=== PATIENT | female | born 1955 | race Caucasian/White ===

== ENCOUNTER → 2019-11-22 09:32 | Outpatient (CLI) | payer MEDICARE, SELFPAY ==
[2019-11-22 11:31] LABS: Add Manual Diff / Slide Review NO; Basophils Absolute Auto 0 /uL (0-100); Basophils Percent Auto 0.4 % (0-2); Eosinophils Absolute Auto 100 /uL (0-450); Eosinophils Percent Auto 1.4 % (2-4); Hematocrit 43.4 % (36-46); Hemoglobin 14.3 g/dL (12.0-16.0); Lymphocytes Absolute Auto 1600 /uL (1100-4500); Lymphocytes Percent Auto 25.3 % (25-40); Mean Corpuscular HGB Conc 32.9 % (30-36); Mean Corpuscular Hemoglobin 30.1 PG (26-34); Mean Corpuscular Volume 91.4 fL (80-100); Monocytes Absolute Auto 500 /uL (0-900); Monocytes Percent Auto 8.4 % (3-14); Neutrophils Absolute Auto 4100 /uL (1500-7000); Neutrophils Percent Auto 64.5 % (50-75); Platelet Count 210 X10^3/uL (150-400); Red Blood Cell Count 4.75 X10^6/uL (4.0-5.2); White Blood Cell Count 6.3 X10^3/uL (4.5-11.0)
[2019-11-22 11:45] LABS: BUN Creatinine Ratio 16.3 (6-22); Blood Urea Nitrogen 13 mg/dL (7-17); Calcium 9.4 mg/dL (8.4-10.2); Carbon Dioxide 28 mmol/L (22-32); Chloride 103 mmol/L (98-107); Cholesterol 206 mg/dL (140-199); Estimated Glomerular Filt Rate > 60.0 mL/min (>60); Glucose 80 mg/dL (80-110); HDL Cholesterol 98 mg/dL (40-60); HEMOLYSIS < 15 (0-50); LDL Cholesterol Calculated 92 mg/dL (<100); Potassium 4.3 mmol/L (3.4-5.1); Sodium 137 mmol/L (137-145); Triglycerides 79 mg/dL (35-150)
[2019-11-22 12:21] LABS: TSH w/ Reflex to FT4 1.11 uIU/mL (0.47-4.68)
[2019-11-23 10:48] LABS: Fecal Immunochemical Test Negative (Negative)
== END ==
PROVIDERS: PCP Family Medicine; Referring Provider Family Medicine; Visit Provider Family Medicine
DX: Z13.220 Encounter for screening for lipoid disorders (principal); Z13.29 Encounter for screening for other suspected endocrine disorder; Z12.11 Encounter for screening for malignant neoplasm of colon
CPT/HCPCS: 36415; 80048; 80061; 82274; 84443; 85025

== ENCOUNTER → 2020-11-27 08:29 | Outpatient (CLI) | payer MEDICARE, SELFPAY ==
[2020-11-27 09:59] LABS: Add Manual Diff / Slide Review NO; Basophils Absolute Auto 0 /uL (0-100); Basophils Percent Auto 0.5 % (0-2); Eosinophils Absolute Auto 100 /uL (0-450); Eosinophils Percent Auto 2.3 % (2-4); Hematocrit 41.7 % (36-46); Hemoglobin 13.9 g/dL (12.0-16.0); Lymphocytes Absolute Auto 1500 /uL (1100-4500); Lymphocytes Percent Auto 25.3 % (25-40); Mean Corpuscular HGB Conc 33.3 % (30-36); Mean Corpuscular Hemoglobin 30.5 PG (26-34); Mean Corpuscular Volume 91.5 fL (80-100); Monocytes Absolute Auto 500 /uL (0-900); Monocytes Percent Auto 7.5 % (3-14); Neutrophils Absolute Auto 3900 /uL (1500-7000); Neutrophils Percent Auto 64.4 % (50-75); Platelet Count 184 X10^3/uL (150-400); Red Blood Cell Count 4.55 X10^6/uL (4.0-5.2); Red Cell Distribution Width 13.1 % (11.6-14.8); White Blood Cell Count 6.1 X10^3/uL (4.5-11.0)
[2020-11-27 11:19] LABS: BUN Creatinine Ratio 31.3 (6-22); Blood Urea Nitrogen 21 mg/dL (7-17); Calcium 8.8 mg/dL (8.4-10.2); Carbon Dioxide 27 mmol/L (22-32); Chloride 106 mmol/L (98-107); Cholesterol 223 mg/dL (140-199); Estimated Glomerular Filt Rate > 60.0 mL/min (>60); Glucose 84 mg/dL (80-110); HDL Cholesterol 79 mg/dL (40-60); HEMOLYSIS < 15 (0-50); LDL Cholesterol Calculated 126 mg/dL (<100); Potassium 4.3 mmol/L (3.4-5.1); Sodium 138 mmol/L (137-145); Triglycerides 89 mg/dL (35-150)
[2020-11-27 11:46] LABS: TSH w/ Reflex to FT4 0.85 uIU/mL (0.47-4.68)
== END ==
PROVIDERS: PCP Family Medicine; Referring Provider Family Medicine; Visit Provider Family Medicine
DX: E78.5 Hyperlipidemia, unspecified (principal); Z13.29 Encounter for screening for other suspected endocrine disorder
CPT/HCPCS: 36415; 80048; 80061; 84443; 85025

== ENCOUNTER → 2020-12-11 08:54 | Outpatient (CLI) | payer MEDICARE, SELFPAY ==
[2020-12-11 12:38] LABS: COVID19 -Nasal RAPID Negative (Negative)
== END ==
PROVIDERS: PCP Family Medicine; Visit Provider Physician Assistant
DX: Z20.822 Contact with and (suspected) exposure to COVID-19 (principal)
CPT/HCPCS: 87635; C9803

== ENCOUNTER → 2020-12-12 08:00 | Outpatient (CLI) | payer MEDICARE, SELFPAY ==
--- NOTE | 2020-12-12 08:01 | DI.NM.S_ITS ---
PROCEDURE: NM CLAUDETTE PERF SPECT REST & STR Rest and exercise myocardial perfusion SPECT with gated imaging and ejection fraction RADIOPHARMACEUTICAL: 11.0 mCi Tc-99m sestamibi IV at rest and 25.9 mCi Tc-99m sestamibi IV at peak exercise. A one day-protocol was performed. INDICATIONS: palpitations, fhx early HI TECHNIQUE: Radiopharmaceutical was injected at peak stress test, and also at rest. SPECT images were obtained. SPECT myocardial perfusion images were displayed in short axis, horizontal long axis, and vertical long axis views. Gated images were reviewed using wiMAN software. COMPARISON: None. CARDIAC STRESS: A standard Jamal treadmill exercise tolerance test was performed by the patient under the supervision of an attending staff. The patient exercised for 4 minutes and 56 seconds; functional aerobic impairment (BHARTI) is +18%. Hemodynamic data: There is normal blood pressure and heart rate response to exercise stress. Patient achieved 89% of maximum predicted heart rate at peak exercise. Symptoms: Patient denied chest pain during exercise. EKG: No diagnostic EKG changes of ischemia; no ectopy. FINDINGS: Raw data: There is good myocardial labeling by radiotracer. No significant motion artifacts. Tadk-cl-gqscz ratio is 0.29 (normal is less than 0.38 for sestamibi tracer, and less than 0.50 for thallium tracer). Left ventricle function: Gated images demonstrate normal left ventricle wall thickening. No segmental wall motion abnormality. No transient ischemic dilation; TID is 0.98 (normal less than 1.3). The left ventricle resting end-diastolic volume is 78 mL. Left ventricle stress ejection fraction is 67%; normal values are above 45%. Myocardial perfusion: There is a moderately intense resting apical defect that improve with stress supine images, suggesting apical thinning artifact but small apical non-transmural infarct can't be excluded. No ischemia. IMPRESSION: Low risk, probably normal treadmill nuclear stress test 1) No perfusion evidence of ischemia. There is a moderately intense resting apical defect that improve with stress supine images, suggesting apical thinning artifact but small apical non-transmural infarct can't be excluded. 2) Normal left ventricular size, wall motion, and systolic function (EF post stress 67%). 3) No ECG evidence of ischemia. 4) No angina during the study. 5) Mildly reduced exercise tolerance (7.0 METs, BHARTI +18%). Target heart rate achieved. Appropriate BP response to exercise. 6) No prior nuclear stress test available for comparison. Dictated by: Janina Hines MD on 12/12/2020 at 17:07 Approved by: Janina Hines MD on 12/12/2020 at 17:12
--- NOTE | 2020-12-12 14:26 | PM.TREADMILL ---
Cardiac Stress Test Report Referral & Results Date Patient Seen: 12/12/20 Requesting provider: Jesse Blanchard Indication: Palpitations Rest ECG: Unremarkable Procedure Note: Today following both written and verbal informed consent the patient was exercised according to a standard Jamal protocol patient went for a total of 4 minutes 56 seconds achieving a maximum heart rate of 137 maximum systolic blood pressure of 172. This is approximately 7.0 METS. Exercise was terminated at this point because of targets were met patient was unable to continue Patient was also given Cardiolite through a previously started Hep-Lock IV by the diagnostic imaging staff approximately 1 minute prior to the cessation of exercise. Patient had rare PVCs during the exercise portion of the test. PVC seem to come from 2 separate foci. There are no ST-T segment changes identified Normal heart rate and blood pressure response to exercise Function aerobic impairment rates about 0 on the sedentary scale Impression: No evidence of ischemia based on usual ECG criteria. Average exercise capacity. PVCs as above Please see perfusion imaging report as well Please note: Actual ECG tracings can be found in the PACS system.
== END ==
PROVIDERS: PCP Family Medicine; Referring Provider Family Medicine; Visit Provider Family Medicine
DX: R00.2 Palpitations (principal); Z82.49 Family history of ischemic heart disease and other diseases of the circulatory system; E78.00 Pure hypercholesterolemia, unspecified
CPT/HCPCS: 78452; 93017; A9502

== ENCOUNTER → 2022-08-13 09:26 | Outpatient (CLI) | payer MEDICARE, SELFPAY ==
[2022-08-14 16:46] LABS: Fecal Immunochemical Test Negative (Negative)
== END ==
PROVIDERS: PCP Family Medicine; Referring Provider Family Medicine; Visit Provider Family Medicine
DX: Z12.11 Encounter for screening for malignant neoplasm of colon (principal)
CPT/HCPCS: 82274

== ENCOUNTER → 2022-08-19 11:25 | Outpatient (CLI) | payer MEDICARE, SELFPAY ==
--- NOTE | 2022-08-19 11:26 | DI.MG.S_ITS ---
BILATERAL DIGITAL SCREENING MAMMOGRAM 3D/2D WITH CAD: 08/19/2022 CLINICAL: Baseline by default. No prior exams were available for comparison. Both breasts are heterogeneously dense, which may obscure small masses (category c / 51-75% glandular tissue). Current study was also evaluated with a Computer Aided Detection (CAD) system. There is a focal asymmetry in the left breast at 2 o'clock middle depth. No other significant masses, calcifications, or other findings are seen in either breast. IMPRESSION: INCOMPLETE: NEEDS ADDITIONAL IMAGING EVALUATION The focal asymmetry in the left breast is indeterminate. Additional views with possible ultrasound are recommended. Based on the Tyrer Cuzick model (a risk assessment model) the patient's lifetime risk is 11.5% and her 10 year risk is 6.4%. According to the ACR, ACS, and NCCN guidelines, an annual breast MRI exam along with mammogram is recommended if the patient's lifetime risk is 20% or greater. This exam was interpreted at Station ID: [id number]. NOTE: For mammograms, a report in lay terms will be sent to the patient. Approximately 15% of breast malignancies will not be visualized mammographically. In the management of a palpable breast mass, a negative mammogram must not discourage biopsy of a clinically suspicious lesion. Electronically Signed By: Angie olvera/:08/19/2022 14:37:56 letter sent: Additional Imaging Needed ACR BI-RADS Category 0: Incomplete 3340F
== END ==
PROVIDERS: PCP Family Medicine; Referring Provider Family Medicine; Visit Provider Family Medicine
DX: Z12.31 Encounter for screening mammogram for malignant neoplasm of breast (principal)
CPT/HCPCS: 77063; 77067

== ENCOUNTER → 2022-09-15 08:43 | Outpatient (CLI) | payer MEDICARE, SELFPAY ==
--- NOTE | 2022-09-15 | DI.MG.S_ITS ---
UNILATERAL LEFT DIGITAL DIAGNOSTIC MAMMOGRAM 3D/2D WITH ADDITIONAL VIEWS: 09/15/2022 CLINICAL: Additional evaluation requested from prior study. Comparison is made to exams dated: 08/19/2022 mammogram - [facility] and 11/16/2001 mammogram - [facility]. The left breast is heterogeneously dense, which may obscure small masses (category c / 51-75% glandular tissue). There is an oval equal density focal asymmetry with a microlobulated margin in the left breast at 2 o'clock middle depth. This is seen in additional views. No other significant masses or calcifications are seen in the breast. IMPRESSION: INCOMPLETE: NEEDS ADDITIONAL IMAGING EVALUATION The oval equal density focal asymmetry in the left breast persists with additional views and remains indeterminate. An ultrasound is recommended. This was performed immediately following this exam. Based on the Tyrer Cuzick model (a risk assessment model) the patient's lifetime risk is 11.5% and her 10 year risk is 6.4%. According to the ACR, ACS, and NCCN guidelines, an annual breast MRI exam along with mammogram is recommended if the patient's lifetime risk is 20% or greater. This exam was interpreted at Station ID: [id number]. NOTE: For mammograms, a report in lay terms will be sent to the patient. Approximately 15% of breast malignancies will not be visualized mammographically. In the management of a palpable breast mass, a negative mammogram must not discourage biopsy of a clinically suspicious lesion. Electronically Signed By: Kassy andrade/:09/15/2022 15:04:31 ACR BI-RADS Category 0: Incomplete 3340F
--- NOTE | 2022-09-15 08:44 | DI.US.S_ITS ---
LIMITED ULTRASOUND OF LEFT BREAST: 09/15/2022 CLINICAL: Patient returns today to evaluate a focal asymmetry in the left breast. Comparison is made to exams dated: 09/15/2022 mammogram and 08/19/2022 mammogram - [facility]. Color flow ultrasound of the left breast was performed. Jeffery scale images of the real-time examination were reviewed. No significant abnormalities were seen sonographically in the left breast. Specifically, no finding to correspond to the patient's persistent mammographic abnormality. IMPRESSION: PROBABLY BENIGN No sonographic correlate to the mammogram finding. This may be a lymph node or overalpping glandular tissue and is probably benign. A follow-up left mammogram and an ultrasound in 6 months is recommended to demonstrate stability. Findings and recommendations were conveyed to the patient at time of exam. This exam was interpreted at Station ID: [id number]. Electronically Signed By: Kassy andrade/:09/15/2022 15:02:45 letter sent: Followup Recommended Ultrasound BI-RADS: 3 Probably benign
== END ==
PROVIDERS: PCP Family Medicine; Referring Provider Family Medicine; Visit Provider Family Medicine
DX: R92.8 Other abnormal and inconclusive findings on diagnostic imaging of breast (principal); N64.89 Other specified disorders of breast
CPT/HCPCS: 76642; 77065; G0279

== ENCOUNTER → 2022-11-25 07:59 | Outpatient (CLI) | payer MEDICARE, SELFPAY ==
[2022-11-25 09:28] LABS: Add Manual Diff / Slide Review NO; Basophils Absolute Auto 0 /uL (0-100); Basophils Percent Auto 0.8 % (0-2); Eosinophils Absolute Auto 200 /uL (0-450); Hematocrit 41.9 % (36-46); Lymphocytes Absolute Auto 1600 /uL (1100-4500); Lymphocytes Percent Auto 31.7 % (25-40); Mean Corpuscular HGB Conc 33.4 % (30-36); Mean Corpuscular Hemoglobin 30.9 PG (26-34); Mean Corpuscular Volume 92.4 fL (80-100); Monocytes Absolute Auto 500 /uL (0-900); Monocytes Percent Auto 10.7 % (3-14); Neutrophils Absolute Auto 2700 /uL (1500-7000); Neutrophils Percent Auto 52.8 % (50-75); Platelet Count 173 X10^3/uL (150-400); Red Blood Cell Count 4.53 X10^6/uL (4.0-5.2); Red Cell Distribution Width 13.5 % (11.6-14.8)
[2022-11-25 09:58] LABS: Alanine Aminotransferase 35 IU/L (<35); Albumin 3.9 g/dL (3.5-5.0); Albumin Globulin Ratio 1.5 (1.0-2.8); Alkaline Phosphatase 79 U/L (38-126); Aspartate Aminotransferase 45 IU/L (14-36); BUN Creatinine Ratio 20.9 (6-22); Bilirubin Total 0.6 mg/dL (0.2-1.3); Blood Urea Nitrogen 14 mg/dL (7-17); Calcium 8.9 mg/dL (8.4-10.2); Carbon Dioxide 22 mmol/L (22-32); Chloride 106 mmol/L (98-107); Cholesterol 208 mg/dL (140-199); Estimated Glomerular Filt Rate > 60 mL/min (>60); Globulin 2.6 g/dL (1.7-4.1); Glucose 83 mg/dL (80-110); HDL Cholesterol 72 mg/dL (40-60); HEMOLYSIS 72 (0-50); LDL Cholesterol Calculated 121 mg/dL (<100); Potassium 4.6 mmol/L (3.4-5.1); Sodium 138 mmol/L (137-145); Total Protein 6.5 g/dL (6.3-8.2); Triglycerides 76 mg/dL (35-150)
== END ==
PROVIDERS: PCP Family Medicine; Referring Provider Family Medicine; Visit Provider Family Medicine
DX: E78.5 Hyperlipidemia, unspecified (principal); R00.2 Palpitations; R53.83 Other fatigue
CPT/HCPCS: 36415; 80053; 80061; 85025

== ENCOUNTER → 2022-12-17 09:18 | Outpatient (CLI) | payer MEDICARE, SELFPAY ==
[2022-12-17 11:22] LABS: Vitamin B12 > 1000 pg/mL (239-931)
[2022-12-17 15:55] LABS: Hepatitis B Surface Antigen NEGATIVE s/c (NEGATIVE)
[2022-12-17 16:19] LABS: Hep C Virus Ab w/Reflex Quant NEGATIVE s/c (NEGATIVE)
== END ==
PROVIDERS: PCP Family Medicine; Referring Provider Physician Assistant; Visit Provider Physician Assistant
DX: R14.0 Abdominal distension (gaseous) (principal); Z78.0 Asymptomatic menopausal state; G62.9 Polyneuropathy, unspecified
CPT/HCPCS: 36415; 82607; 86803; 87340

== ENCOUNTER → 2023-03-30 08:35 | Outpatient (CLI) | payer OTHER, SELFPAY ==
--- NOTE | 2023-03-30 08:36 | DI.MG.S_ITS ---
UNILATERAL LEFT DIGITAL DIAGNOSTIC MAMMOGRAM 3D/2D SHORT-TERM FOLLOW-UP: 03/30/2023 CLINICAL: Short term follow up for the left breast. Comparison is made to exams dated: 09/15/2022 mammogram, 08/19/2022 mammogram, and 09/15/2022 ultrasound - [facility]. The left breast is heterogeneously dense, which may obscure small masses (category c / 51-75% glandular tissue). There is an oval equal density focal asymmetry with a microlobulated margin in the left breast at 2 o'clock middle depth. This is not significantly changed and was not seen on the prior ultrasound. No other significant masses or calcifications are seen in the breast. IMPRESSION: PROBABLY BENIGN The oval equal density focal asymmetry in the left breast is probably benign. A follow-up mammogram in 6 months is recommended to demonstrate stability. Based on the Tyrer Cuzick model (a risk assessment model) the patient's lifetime risk is 11.5% and her 10 year risk is 6.4%. According to the ACR, ACS, and NCCN guidelines, an annual breast MRI exam along with mammogram is recommended if the patient's lifetime risk is 20% or greater. This exam was interpreted at Station ID: [id number]. NOTE: For mammograms, a report in lay terms will be sent to the patient. Approximately 15% of breast malignancies will not be visualized mammographically. In the management of a palpable breast mass, a negative mammogram must not discourage biopsy of a clinically suspicious lesion. Electronically Signed By: Ters bass/meenakshi:03/30/2023 16:51:58 letter sent: Followup Recommended ACR BI-RADS Category 3: Probably benign [id number]
== END ==
LOC: MAMMO 08:35
PROVIDERS: PCP Family Medicine; Referring Provider Physician Assistant; Visit Provider Physician Assistant
DX: R92.8 Other abnormal and inconclusive findings on diagnostic imaging of breast (principal); N64.89 Other specified disorders of breast; R92.332 Mammographic heterogeneous density, left breast
CPT/HCPCS: 77065; G0279

== ENCOUNTER → 2023-09-03 13:48 | Outpatient (CLI) | payer MEDICARE, SELFPAY ==
--- NOTE | 2023-09-03 14:26 | DI.RAD.S_ITS ---
PROCEDURE: XR FOOT LT MIN 3V INDICATIONS: bl foot pain TECHNIQUE: 3 views of the foot were acquired. COMPARISON: None. FINDINGS: Bones: No fractures or dislocations. No suspicious bony lesions. Soft tissues: No tibiotalar joint effusion. Achilles tendon appears normal. IMPRESSION: No acute bony abnormality. Dictated by: Kassy Hallman M.D. on 09/03/2023 at 18:29 Approved by: Kassy Hallman M.D. on 09/03/2023 at 18:29
--- NOTE | 2023-09-03 14:26 | DI.RAD.S_ITS ---
PROCEDURE: XR FOOT RT MIN 3V INDICATIONS: bl foot pain TECHNIQUE: 3 views of the foot were acquired. COMPARISON: None. FINDINGS: Bones: No fractures or dislocations. No suspicious bony lesions. Prominent 1st metatarsal hallux valgus deformity and mild degenerative changes at the 1st MTP including spurring and subcortical cystic change. Tiny plantar calcaneal spur. Soft tissues: No tibiotalar joint effusion. Achilles tendon appears normal. IMPRESSION: Prominent 1st metatarsal hallux valgus deformity. Dictated by: Kassy Hallman M.D. on 09/03/2023 at 18:29 Approved by: Kassy Hallman M.D. on 09/03/2023 at 18:30
--- NOTE | 2023-09-03 14:26 | DI.RAD.S_ITS ---
PROCEDURE: XR HIP W PEL IF DONE LT 2V INDICATIONS: left hip pain TECHNIQUE: AP pelvis with lateral view(s) of the left hip(s). COMPARISON: None. FINDINGS: Bones: Decreased mineralization. No acute fracture. Normal bone alignment with diffuse joint space loss. There is moderately severe circumferential joint space loss in the left femoroacetabular joint with several subcortical cysts and mild sclerosis present. Moderate axial joint space loss in the right hip with loss sclerosis and subcortical cystic change. Soft tissues: The visualized bowel gas pattern is normal. No suspicious soft tissue calcifications. Surgical clips of prior tubal ligation. IMPRESSION: Asymmetric arthritic changes in the hips, left worse than right. Dictated by: Kassy Hallman M.D. on 09/03/2023 at 16:01 Approved by: Kassy Hallman M.D. on 09/03/2023 at 16:24
[2023-09-03 15:26] LABS: Hemoglobin A1C% w Est Avg Glu 5.3 % (4.0-6.0)
[2023-09-03 15:34] LABS: Add Manual Diff / Slide Review NO; Basophils Absolute Auto 0 /uL (0-100); Basophils Percent Auto 0.4 % (0-2); Eosinophils Absolute Auto 200 /uL (0-450); Eosinophils Percent Auto 2.4 % (2-4); Hematocrit 42.6 % (36-46); Hemoglobin 14.1 g/dL (12.0-16.0); Lymphocytes Absolute Auto 2400 /uL (1100-4500); Lymphocytes Percent Auto 30.5 % (25-40); Mean Corpuscular HGB Conc 33.1 % (30-36); Mean Corpuscular Hemoglobin 30.4 PG (26-34); Mean Corpuscular Volume 91.9 fL (80-100); Monocytes Absolute Auto 700 /uL (0-900); Monocytes Percent Auto 9.3 % (3-14); Neutrophils Absolute Auto 4400 /uL (1500-7000); Neutrophils Percent Auto 57.4 % (50-75); Platelet Count 215 X10^3/uL (150-400); Red Blood Cell Count 4.63 X10^6/uL (4.0-5.2); Red Cell Distribution Width 13.5 % (11.6-14.8); White Blood Cell Count 7.7 X10^3/uL (4.5-11.0)
[2023-09-03 15:40] LABS: Alanine Aminotransferase 27 IU/L (<35); Albumin 4.4 g/dL (3.5-5.0); Albumin Globulin Ratio 2.1 (1.0-2.8); Alkaline Phosphatase 89 U/L (38-126); Aspartate Aminotransferase 30 IU/L (14-36); BUN Creatinine Ratio 22.2 (6-22); Bilirubin Total 0.6 mg/dL (0.2-1.3); Blood Urea Nitrogen 18 mg/dL (7-17); Calcium 9.3 mg/dL (8.4-10.2); Carbon Dioxide 31 mmol/L (22-32); Chloride 104 mmol/L (98-107); Estimated Glomerular Filt Rate > 60 mL/min (>60); Globulin 2.1 g/dL (1.7-4.1); Glucose 81 mg/dL (80-110); HEMOLYSIS < 15 (0-50); Potassium 4.3 mmol/L (3.4-5.1); Sodium 139 mmol/L (137-145); Total Protein 6.5 g/dL (6.3-8.2)
[2023-09-03 16:09] LABS: TSH w/ Reflex to FT4 0.03 uIU/mL (0.47-4.68)
[2023-09-03 16:28] LABS: Vitamin B12 639 pg/mL (239-931)
[2023-09-03 16:33] LABS: Free T4, Direct Thyroxine 1.25 ng/dL (0.78-2.19)
== END ==
LOC: LAB 14:01 → RAD 14:25
PROVIDERS: PCP Family Medicine; Referring Provider Family Medicine; Visit Provider Family Medicine
DX: M20.11 Hallux valgus (acquired), right foot (principal); G62.9 Polyneuropathy, unspecified; M25.552 Pain in left hip; M79.671 Pain in right foot; M79.672 Pain in left foot
CPT/HCPCS: 36415; 73502; 73630; 80053; 82607; 83036; 84439; 84443; 85025

== ENCOUNTER → 2023-10-15 10:12 | Outpatient (CLI) | payer MEDICARE, SELFPAY ==
--- NOTE | 2023-10-15 10:13 | DI.MG.S_ITS ---
BILATERAL DIGITAL DIAGNOSTIC MAMMOGRAM 3D/2D SHORT-TERM FOLLOW-UP: 10/15/2023 CLINICAL: Short term follow up of the left breast, due for bilateral imaging. Comparison is made to exams dated: 03/30/2023 mammogram, 09/15/2022 mammogram, and 08/19/2022 mammogram - [facility]. Both breasts are heterogeneously dense, which may obscure small masses (category c / 51-75% glandular tissue). There is a stable oval focal asymmetry in the left breast at 2 o'clock middle depth. This was not seen on the prior ultrasound. No other significant masses, calcifications, or other findings are seen in either breast. IMPRESSION: PROBABLY BENIGN The stable oval focal asymmetry in the left breast is probably benign. Likely a small cyst. A follow-up mammogram in 12 months is recommended to demonstrate long-term stability. Based on the Tyrer Cuzick model (a risk assessment model) the patient's lifetime risk is 10.9% and her 10 year risk is 6.5%. According to the ACR, ACS, and NCCN guidelines, an annual breast MRI exam along with mammogram is recommended if the patient's lifetime risk is 20% or greater. This exam was interpreted at Station ID: [id number]. NOTE: For mammograms, a report in lay terms will be sent to the patient. Approximately 15% of breast malignancies will not be visualized mammographically. In the management of a palpable breast mass, a negative mammogram must not discourage biopsy of a clinically suspicious lesion. Electronically Signed By: Gerson Pearson M.D. slc/:10/15/2023 11:36:34 letter sent: Followup Recommended ACR BI-RADS Category 3: Probably benign 3343F
== END ==
PROVIDERS: PCP Family Medicine; Referring Provider Physician Assistant; Visit Provider Physician Assistant
DX: R92.8 Other abnormal and inconclusive findings on diagnostic imaging of breast (principal); R92.333 Mammographic heterogeneous density, bilateral breasts
CPT/HCPCS: 77066; G0279

== ENCOUNTER 2024-05-22 09:45 | Outpatient (RCR) | payer MEDICARE, SELFPAY ==
--- NOTE | 2023-12-30 17:49 | PT.OIE ---
Current Diagnoses Pain in left hip (12/30/23) Past Medical History (Last Reviewed 09/09/23 @ 18:00 by Jose Patel DO) Abdominal bloating Acne Borderline hypothyroidism Chicken pox Chronic pain of right knee Family history of heart disease in male family member before age 55 Fibroids (~2002) Foot pain, bilateral Herpes zoster Hyperlipidemia Left hip pain Lethargy Measles (~1960) Nocturnal leg cramps Numbness of toes Osteoarthritis (~1998) Ovarian cyst (~2002) Palpitations Post herpetic neuralgia PTSD (post-traumatic stress disorder) (~2012) PVC (premature ventricular contraction) Screen for colon cancer Screening for thyroid disorder Skin texture changes Wrist fracture (~1959) Past Surgical History (Last Reviewed 09/09/23 @ 18:00 by Jose Patel DO) Anesthesia History of knee replacement History of tubal ligation (~1991) Status post bilateral knee replacements Visit Care Team Role Provider Type Jose Patel DO Family Provider Physician Primary Care Provider Specialty: [facility] Practice Address: [address] [place] [address], [id number] Email: [email or web address] Raya MD Attending Provider Non-Staff Referring Provider Specialty: Orthopedic Surgery Address: [facility] [address], [place], [address] Email: Physical Therapy Initial Evaluation PT-OP-A Visit Information Start: 12/02/23 17:12 Freq: Status: Active Protocol: Document 12/30/23 13:01 [facility] (Rec: 12/30/23 13:51 [facility] [id number]) Out-Patient Physical Therapy Visit Information Visit Information Visit Type Initial Evaluation Visit Note 03/31 Visit Start Time 13:02 Visit Stop Time 13:47 Visit Number 1 Number of FINISHED CARPET INSPECTOR Visits 0 Precautions Precautions No ext or abd L hip PT-OP-B Current Condition Start: 12/02/23 17:12 Freq: Status: Active Protocol: Document 12/30/23 13:01 [facility] (Rec: 12/30/23 13:51 [facility] [id number]) Current Condition History of Current Condition Onset Date 12/26 Current Complaints L ant DAVID History of Current Condition Pt had L anterior DAVID 12/26 without complications d/t OA. Pt has had B TKA and has had good recovery. Avoids getting down on knees and avoids running, and jumping. Pt reports got DAVID d/t gradual wearing down. Pt reports doing well with FWW Pt has SLH w/1 IVORY. Pt has tub shower w/hand rails. Has not showered yet. The day of sx, she did have some dizziness and hasn't had issues past couple days. No issues w/toilet. Pt has been getting assistance w/ compression socks and shoes and pants. Has mostly been wearing skirts. Sister staying w/pt now. Has been doing glute and quad sets, APs, and heel slides. Treatment Goals Patient/Caregiver Goals Wants to be able to walk and hike and be able to bike and swim and garden. Be able to squat PT-OP-C Subjective Start: 12/02/23 17:12 Freq: Status: Active Protocol: Document 12/30/23 13:01 [facility] (Rec: 12/30/23 13:51 [facility] [id number]) Patient Questionnaires Lower Extremity Functional Scale LEFS Score 1880 OP-PT Pain Assessment Location L hip Pain Location Details L groin and buttocks pain Scale Used 3-5/10 Description Aching Pain Aggravating Factors Activity Pain Alleviating Factors Cold,Medication PT-OP-G Mobility & Gait Start: 12/02/23 17:12 Freq: Status: Active Protocol: Document 12/30/23 13:01 [facility] (Rec: 12/30/23 13:51 [facility] [id number]) OP Mobility Evaluation Bed Mobility Supine to and from Sit uses RLE to help up LLE Transfers Sit to Stand puts LLE out in front and uses UEs to FWW OP Gait Assessment Assistive Devices Assistive Device Front Wheeled Walker Gait Deviations General Gait Pattern Antalgic,Decreased Stride Length PT-OP-M Strength Start: 12/02/23 17:12 Freq: Status: Active Protocol: Document 12/30/23 13:01 [facility] (Rec: 12/30/23 13:51 [facility] [id number]) Hip Strength Hip Manual Muscle Testing Right Flexion (L2) 4- Good- External Rotation 3+ Fair+ Internal Rotation 4 Good Left Flexion (L2) 3- Fair- External Rotation 3+ Fair+ Internal Rotation 3+ Fair+ Comments ER/IR in neutral Knee Strength Knee Manual Muscle Testing Right Flexion (S2) 5 Normal Extension (L3) 5 Normal Left Flexion (S2) 4 Good Extension (L3) 3+ Fair+ Ankle/Foot Strength Ankle and Foot Manual Muscle Testing Right Dorsiflexion (L4) 5 Normal Plantarflexion (S1) 5 Normal Left Dorsiflexion (L4) 5 Normal Plantarflexion (S1) 5 Normal Comments seated testing PT-OP-Q Treatments Start: 12/02/23 17:12 Freq: Status: Active Protocol: Document 12/30/23 13:01 [facility] (Rec: 12/30/23 13:51 [facility] [id number]) Therapeutic Exercises Supine Exercises quad sets Side left Reps/Minutes 5secx5 heel slides Side left Reps/Minutes 6x5 sec hold w/APs at end range Comments towel Sitting Exercises LAQ Side left Reps/Minutes 5secx7 Self-Care/Home Management Treatment Education Other Education 15 min: edu of how to use combo of walker and grab bars for in/out of tub w/sister help. Edu re: keeping leg up and not sitting in chair for long periods. Edu on importance of small frequent walks vs long walk; edu re: WBAT; review precautions (abd, ER, ext), edu can do hills when feel stronger and to listen to body re: pain PT-OP-T Assessment and Plan Start: 12/02/23 17:12 Freq: Status: Active Protocol: Document 12/30/23 13:01 [facility] (Rec: 12/30/23 13:51 [facility] [id number]) Physical Therapy Assessment Rehab Potential Rehabilitation Potential Excellent Evaluation Complexity Number of Personal Factors/Comorbidities 1-2 Number of Body Systems Impaired 4 or More Clinical Presentation at Evaluation Evolving Impairments Impairments Activity Tolerance,Balance, Edema,Functional Activities, Functional Mobility,Gait, Integument,Pain,Posture,ROM, Soft Tissue Mobility,Strength, Transfers Goals strength Short Term Goal (STG) Pt will be able to reciprocate up/down stairs w/rail STG Duration 01/29 Penitentiary Goal (LTG) Pt will score at least 4+/5 on all BLE MMT to show improved strength and stability to allow greater ease w/activity. LTG Duration 03/09 balance Penitentiary Goal (LTG) Pt will be able to do at least 10 sec SLS B LTG Duration 03/09/24 walking Short Term Goal (STG) Pt will be able to go for .5 mile walks w/pain no greater than 2/10 STG Duration 01/21 Penitentiary Goal (LTG) Pt will report being able to return to hiking on uneven terrain for >2 miles w/o pain >2/10 LTG Duration 03/09 LEFS Impairment 18/80 Short Term Goal (STG) Pt will improve LEFS score to at least 35/80 to show improved functional ability. STG Duration 01/29 Ceramic Plater Goal (LTG) Pt will improve LEFS score to at least 55/80 to show improved functional ability. LTG Duration 03/09 Assessment Summary Assessment Pt presents 3 days s/p L ant DAVID w/overall good pain control and mobility w/help at home from sister who is staying until pt able to drive herself. She is showing weakness as expected to LLE, but has been motivated to be active and participate in exercises and ADLs. She amb w/ FWW and does require it still for offloading LLE. She would benefit from skilled PT to return to active lifestyle of walking, biking and hiking. Physical Therapy Plan Frequency and Duration Frequency of Treatment 1-2x/wk Duration of treatment (weeks) 10 Plan of Care Start Date 12/30/23 Plan of Care End Date 03/09/24 Therapeutic Interventions Therapeutic Interventions Balance Training,Gait Training ,Home Exercise Program,Joint Mobilizations,Manual Therapy, Neuromuscular Re-education, Patient/Caregiver Education, Self-Care/Home Management,Soft Tissue Mobilization,Taping, Therapeutic Activities, Therapeutic Exercises Modalities Cold Pack/Ice Massage,Electric Stimulation,Hot Packs Next Visit Focus/Plan Next Note Type Treatment Note Next Visit Plan Avoid:hip abd & ext review LAQ, add HS curl, try standing march, sit to stands, add HS leg press and seated stepper or bike
--- NOTE | 2023-12-30 17:49 | PT.OPPOC ---
Physical, Occupational & Speech Therapy At [facility] Current Diagnoses Pain in left hip (12/30/23) Visit Care Team Role Provider Type Jose Patel DO Family Provider Physician Primary Care Provider Specialty: Family Practice Address: [address] [place] [address], [id number] Email: [email or web address] Aristides Raya MD Attending Provider Non-Staff Referring Provider Specialty: Orthopedic Surgery Address: [address] [place] [address] , [place], [address] Email: Plan Of Care PT-OP-B Current Condition Start: 12/02/23 17:12 Freq: Status: Active Protocol: Document 12/30/23 13:01 [facility] (Rec: 12/30/23 13:51 [facility] [id number]) Current Condition History of Current Condition Onset Date 12/26 Current Complaints L ant DAVID History of Current Condition Pt had L anterior DAVID 12/26 without complications d/t OA. Pt has had B TKA and has had good recovery. Avoids getting down on knees and avoids running, and jumping. Pt reports got DAVID d/t gradual wearing down. Pt reports doing well with FWW Pt has SLH w/1 IVORY. Pt has tub shower w/hand rails. Has not showered yet. The day of sx, she did have some dizziness and hasn't had issues past couple days. No issues w/toilet. Pt has been getting assistance w/ compression socks and shoes and pants. Has mostly been wearing skirts. Sister staying w/pt now. Has been doing glute and quad sets, APs, and heel slides. Treatment Goals Patient/Caregiver Goals Wants to be able to walk and hike and be able to bike and swim and garden. Be able to squat PT-OP-T Assessment and Plan Start: 12/02/23 17:12 Freq: Status: Active Protocol: Document 12/30/23 13:01 [facility] (Rec: 12/30/23 13:51 [facility] [id number]) Physical Therapy Assessment Rehab Potential Rehabilitation Potential Excellent Evaluation Complexity Number of Personal Factors/Comorbidities 1-2 Number of Body Systems Impaired 4 or More Clinical Presentation at Evaluation Evolving Impairments Impairments Activity Tolerance,Balance, Edema,Functional Activities, Functional Mobility,Gait, Integument,Pain,Posture,ROM, Soft Tissue Mobility,Strength, Transfers Goals strength Short Term Goal (STG) Pt will be able to reciprocate up/down stairs w/rail STG Duration 01/29 Keymodule Assembly Machine Tender Goal (LTG) Pt will score at least 4+/5 on all BLE MMT to show improved strength and stability to allow greater ease w/activity. LTG Duration 03/09 balance Alf Goal (LTG) Pt will be able to do at least 10 sec SLS B LTG Duration 03/09/24 walking Short Term Goal (STG) Pt will be able to go for .5 mile walks w/pain no greater than 2/10 STG Duration 01/21 Alf Goal (LTG) Pt will report being able to return to hiking on uneven terrain for >2 miles w/o pain >2/10 LTG Duration 03/09 LEFS Impairment 18/80 Short Term Goal (STG) Pt will improve LEFS score to at least 35/80 to show improved functional ability. STG Duration 01/29 Keymodule Assembly Machine Tender Goal (LTG) Pt will improve LEFS score to at least 55/80 to show improved functional ability. LTG Duration 03/09 Assessment Summary Assessment Pt presents 3 days s/p L ant DAVID w/overall good pain control and mobility w/help at home from sister who is staying until pt able to drive herself. She is showing weakness as expected to LLE, but has been motivated to be active and participate in exercises and ADLs. She amb w/ FWW and does require it still for offloading LLE. She would benefit from skilled PT to return to active lifestyle of walking, biking and hiking. Physical Therapy Plan Frequency and Duration Frequency of Treatment 1-2x/wk Duration of treatment (weeks) 10 Plan of Care Start Date 12/30/23 Plan of Care End Date 03/09/24 Therapeutic Interventions Therapeutic Interventions Balance Training,Gait Training ,Home Exercise Program,Joint Mobilizations,Manual Therapy, Neuromuscular Re-education, Patient/Caregiver Education, Self-Care/Home Management,Soft Tissue Mobilization,Taping, Therapeutic Activities, Therapeutic Exercises Modalities Cold Pack/Ice Massage,Electric Stimulation,Hot Packs Next Visit Focus/Plan Next Note Type Treatment Note Next Visit Plan Avoid:hip abd & ext review LAQ, add HS curl, try standing may, sit to stands, add HS leg press and seated stepper or bike Plan of Care Dates Plan of Care Start Date 12/30/23 Plan of Care End Date 03/09/24 Electronically Signed by: Betty Hart, PT 12/30/23 [id number] If you are in agreement with this Plan of Care, please return a signed and dated copy. I have reviewed this Plan of Care and certify that the skilled therapy services above are required to meet the patient?s needs. Physician Signature Date Printed Name and Credentials Clinical Instructor Signature Printed Name and Credentials
--- NOTE | 2024-01-03 11:33 | PT.OTN ---
Current Diagnoses Pain in left hip (01/03/24) Physical Therapy Treatment Note PT-OP-A Visit Information Start: 12/02/23 17:12 Freq: Status: Active Protocol: Document 01/03/24 10:51 [facility] (Rec: 01/03/24 11:33 [facility] [id number]) Out-Patient Physical Therapy Visit Information Visit Information Visit Type Treatment Note Visit Note 05/01 Visit Start Time 10:51 Visit Stop Time 11:30 Visit Number 2 Number of HIDE SORTER Visits 0 PT-OP-B Current Condition Start: 12/02/23 17:12 Freq: Status: Active Protocol: Document 12/30/23 13:01 [facility] (Rec: 12/30/23 13:51 [facility] [id number]) Current Condition History of Current Condition Onset Date 12/26 Current Complaints L ant DAVID History of Current Condition Pt had L anterior DAVID 12/26 without complications d/t OA. Pt has had B TKA and has had good recovery. Avoids getting down on knees and avoids running, and jumping. Pt reports got DAVID d/t gradual wearing down. Pt reports doing well with FWW Pt has SLH w/1 IVORY. Pt has tub shower w/hand rails. Has not showered yet. The day of sx, she did have some dizziness and hasn't had issues past couple days. No issues w/toilet. Pt has been getting assistance w/ compression socks and shoes and pants. Has mostly been wearing skirts. Sister staying w/pt now. Has been doing glute and quad sets, APs, and heel slides. Treatment Goals Patient/Caregiver Goals Wants to be able to walk and hike and be able to bike and swim and garden. Be able to squat PT-OP-C Subjective Start: 12/02/23 17:12 Freq: Status: Active Protocol: Document 01/03/24 10:51 [facility] (Rec: 01/03/24 11:33 [facility] [id number]) OP-PT Subjective Patient Comments Patient Comments Pt had to go up a lot of stairs w/o hand rails so used walker and went up backwards. Took her last oxy on wednesday. Using tylenol. PT-OP-G Mobility & Gait Start: 12/02/23 17:12 Freq: Status: Active Protocol: Document 12/30/23 13:01 [facility] (Rec: 12/30/23 13:51 [facility] [id number]) OP Mobility Evaluation Bed Mobility Supine to and from Sit uses RLE to help up LLE Transfers Sit to Stand puts LLE out in front and uses UEs to FWW OP Gait Assessment Assistive Devices Assistive Device Front Wheeled Walker Gait Deviations General Gait Pattern Antalgic,Decreased Stride Length PT-OP-M Strength Start: 12/02/23 17:12 Freq: Status: Active Protocol: Document 12/30/23 13:01 [facility] (Rec: 12/30/23 13:51 [facility] [id number]) Hip Strength Hip Manual Muscle Testing Right Flexion (L2) 4- Good- External Rotation 3+ Fair+ Internal Rotation 4 Good Left Flexion (L2) 3- Fair- External Rotation 3+ Fair+ Internal Rotation 3+ Fair+ Comments ER/IR in neutral Knee Strength Knee Manual Muscle Testing Right Flexion (S2) 5 Normal Extension (L3) 5 Normal Left Flexion (S2) 4 Good Extension (L3) 3+ Fair+ Ankle/Foot Strength Ankle and Foot Manual Muscle Testing Right Dorsiflexion (L4) 5 Normal Plantarflexion (S1) 5 Normal Left Dorsiflexion (L4) 5 Normal Plantarflexion (S1) 5 Normal Comments seated testing PT-OP-Q Treatments Start: 12/02/23 17:12 Freq: Status: Active Protocol: Document 01/03/24 10:51 [facility] (Rec: 01/03/24 11:33 [facility] [id number]) Cardio Equipment Recumbent Elliptical (Biodex) Duration (Minutes) 6 Resistance 1-4 Seat Position 8 Gym Equipment Shuttle Recovery Unilateral Squats Details L Resistance 25# (teal) Shuttle Recovery Platform Stable Reps/Time 10 Bilateral Squats Resistance 50# (navy) Reps/Time 15 Shuttle Balance red clips Comments fwd and side: WBOS & NBOS Therapeutic Exercises Sitting Exercises HS curl Side bilateral Equipment Used L1 Reps/Minutes 10 LAQ Side bilateral Equipment Used L1 Reps/Minutes 10 ea Standing Exercises sit to stand Side bilateral Reps/Minutes 10 Comments w/UEs but BLEs under her march Side bilateral Equipment Used rail Reps/Minutes 6 ea Comments comfortable range HS curl Side bilateral Equipment Used rail Reps/Minutes 6 ea heel raises Standing Exercise Name heel and toe raises Side bilateral Equipment Used rail Reps/Minutes 20 PT-OP-T Assessment and Plan Start: 12/02/23 17:12 Freq: Status: Active Protocol: Document 01/03/24 10:51 [facility] (Rec: 01/03/24 11:33 [facility] [id number]) Physical Therapy Assessment Goals strength Short Term Goal (STG) Pt will be able to reciprocate up/down stairs w/rail STG Duration 01/29 Experience Planning Strategist Goal (LTG) Pt will score at least 4+/5 on all BLE MMT to show improved strength and stability to allow greater ease w/activity. LTG Duration 03/09 balance Usp Goal (LTG) Pt will be able to do at least 10 sec SLS B LTG Duration 03/09/24 walking Short Term Goal (STG) Pt will be able to go for .5 mile walks w/pain no greater than 2/10 STG Duration 01/21 Experience Planning Strategist Goal (LTG) Pt will report being able to return to hiking on uneven terrain for >2 miles w/o pain >2/10 LTG Duration 03/09 LEFS Impairment 18/80 Short Term Goal (STG) Pt will improve LEFS score to at least 35/80 to show improved functional ability. STG Duration 01/29 Experience Planning Strategist Goal (LTG) Pt will improve LEFS score to at least 55/80 to show improved functional ability. LTG Duration 03/09 Assessment Summary Assessment Pt did well with exercsies but did note some ant hip discomfort w/standing on LLE with R knee flex today. She tolerated progression of balance and strength w/o significant c/o pain. Physical Therapy Plan Frequency and Duration Frequency of Treatment 1-2x/wk Duration of treatment (weeks) 10 Plan of Care Start Date 12/30/23 Plan of Care End Date 03/09/24 Next Visit Focus/Plan Next Note Type Treatment Note Next Visit Plan Avoid:hip abd & ext work on cane amb if able review LAQ, HS curl, try standing march, sit to stands leg press and seated stepper or bike
--- NOTE | 2024-01-06 11:48 | PT.OTN ---
Current Diagnoses Pain in left hip (01/06/24) Physical Therapy Treatment Note PT-OP-A Visit Information Start: 12/02/23 17:12 Freq: Status: Active Protocol: Document 01/06/24 10:45 [facility] (Rec: 01/06/24 11:47 [facility] [id number]) Out-Patient Physical Therapy Visit Information Visit Information Visit Type Treatment Note Visit Note 05/29 Visit Start Time 10:48 Visit Stop Time 11:31 Visit Number 3 Number of LVN HOME HEALTH Visits 1 Precautions Precautions No ext or abd L hip PT-OP-B Current Condition Start: 12/02/23 17:12 Freq: Status: Active Protocol: Document 12/30/23 13:01 [facility] (Rec: 12/30/23 13:51 [facility] [id number]) Current Condition History of Current Condition Onset Date 12/26 Current Complaints L ant DAVID History of Current Condition Pt had L anterior DAVID 12/26 without complications d/t OA. Pt has had B TKA and has had good recovery. Avoids getting down on knees and avoids running, and jumping. Pt reports got DAVID d/t gradual wearing down. Pt reports doing well with FWW Pt has SLH w/1 IVORY. Pt has tub shower w/hand rails. Has not showered yet. The day of sx, she did have some dizziness and hasn't had issues past couple days. No issues w/toilet. Pt has been getting assistance w/ compression socks and shoes and pants. Has mostly been wearing skirts. Sister staying w/pt now. Has been doing glute and quad sets, APs, and heel slides. Treatment Goals Patient/Caregiver Goals Wants to be able to walk and hike and be able to bike and swim and garden. Be able to squat PT-OP-C Subjective Start: 12/02/23 17:12 Freq: Status: Active Protocol: Document 01/06/24 10:45 [facility] (Rec: 01/06/24 11:47 [facility] [id number]) OP-PT Subjective Patient Comments Patient Comments 1.78/10 left hip pain ambulating into session with SPC. SLS left LE 3, 4 seconds without UE use PT-OP-G Mobility & Gait Start: 12/02/23 17:12 Freq: Status: Active Protocol: Document 12/30/23 13:01 [facility] (Rec: 12/30/23 13:51 [facility] [id number]) OP Mobility Evaluation Bed Mobility Supine to and from Sit uses RLE to help up LLE Transfers Sit to Stand puts LLE out in front and uses UEs to FWW OP Gait Assessment Assistive Devices Assistive Device Front Wheeled Walker Gait Deviations General Gait Pattern Antalgic,Decreased Stride Length PT-OP-M Strength Start: 12/02/23 17:12 Freq: Status: Active Protocol: Document 12/30/23 13:01 [facility] (Rec: 12/30/23 13:51 [facility] [id number]) Hip Strength Hip Manual Muscle Testing Right Flexion (L2) 4- Good- External Rotation 3+ Fair+ Internal Rotation 4 Good Left Flexion (L2) 3- Fair- External Rotation 3+ Fair+ Internal Rotation 3+ Fair+ Comments ER/IR in neutral Knee Strength Knee Manual Muscle Testing Right Flexion (S2) 5 Normal Extension (L3) 5 Normal Left Flexion (S2) 4 Good Extension (L3) 3+ Fair+ Ankle/Foot Strength Ankle and Foot Manual Muscle Testing Right Dorsiflexion (L4) 5 Normal Plantarflexion (S1) 5 Normal Left Dorsiflexion (L4) 5 Normal Plantarflexion (S1) 5 Normal Comments seated testing PT-OP-Q Treatments Start: 12/02/23 17:12 Freq: Status: Active Protocol: Document 01/06/24 10:45 [facility] (Rec: 01/06/24 11:47 [facility] [id number]) Therapeutic Exercises Sitting Exercises seated hip abduction with band Sitting Exercise Name HEP Side bilateral Resistance level one band Reps/Minutes one min X 1 Comments verbal and tactile cues for neutral LE positioning HS curl Side bilateral Equipment Used L2 Reps/Minutes 15 LAQ Side bilateral Equipment Used L2 Reps/Minutes X15 Standing Exercises sit to stand Standing Exercise Name Patient ed to decrease to every other day with 3X10 Side bilateral Reps/Minutes 2 X 10 HEP to every other day if 2X10 mary Comments occ hands on thighs march Standing Exercise Name HEP Side bilateral Equipment Used rail Reps/Minutes 10 ea Comments comfortable range heel raises Standing Exercise Name heel and toe raises Side bilateral Equipment Used rail Reps/Minutes X15 Comments verbal cues to lower heels to floor slowly Therapeutic Activity Therapeutic Activity cane adjustment Name SPC adjusted for height was too high Comments Patient ed to return to walker if pain increases and use walker for increased distances out of home. stairs Name Patient ascends and descends 6 inch stairs reciprocal pattern 2 rails Reps/Minutes 4 steps X 1 Comments monitored for pain, vc for hands fwd on rails when descending. Patient reports pain lifting left LE onto step Neuro Re-Education Treatment Balance Activities tandem left LE fwd only Details CGA with eyes closed Reps/Duration X3 Romberg Details with eyes closed Reps/Duration X1 Comments CGA minimal sway SLS Surface floor Reps/Duration X2 left LE Comments CGA, monitored for pain. HEP to try X one once a day if painful stop if not painful may practice with hands above counter for 1 to 2 min. PT-OP-T Assessment and Plan Start: 12/02/23 17:12 Freq: Status: Active Protocol: Document 01/06/24 10:45 [facility] (Rec: 01/06/24 11:47 [facility] [id number]) Physical Therapy Assessment Goals strength Short Term Goal (STG) Pt will be able to reciprocate up/down stairs w/rail STG Duration 01/29 Assisted Goal (LTG) Pt will score at least 4+/5 on all BLE MMT to show improved strength and stability to allow greater ease w/activity. LTG Duration 03/09 balance Car Usher Goal (LTG) Pt will be able to do at least 10 sec SLS B LTG Duration 03/09/24 walking Short Term Goal (STG) Pt will be able to go for .5 mile walks w/pain no greater than 2/10 STG Duration 01/21 Car Usher Goal (LTG) Pt will report being able to return to hiking on uneven terrain for >2 miles w/o pain >2/10 LTG Duration 03/09 LEFS Impairment 18/80 Short Term Goal (STG) Pt will improve LEFS score to at least 35/80 to show improved functional ability. STG Duration 01/29 Car Usher Goal (LTG) Pt will improve LEFS score to at least 55/80 to show improved functional ability. LTG Duration 03/09 Assessment Summary Assessment Patient did well with HEP progression, bands increased for long arc quad and HS curl, and increased rep of sit to stand with less UE use. Pain when lifting left LE persists and SLS without UE use left LE limited by pain. Physical Therapy Plan Frequency and Duration Frequency of Treatment 1-2x/wk Duration of treatment (weeks) 10 Plan of Care Start Date 12/30/23 Plan of Care End Date 03/09/24 Next Visit Focus/Plan Next Note Type Treatment Note Next Visit Plan Avoid:hip abd & ext work on cane amb if able assess mary to standing may on HEP and progression of reps for sit to stands If SLS still painful Romber, tandem with left LE fwd. leg press and seated stepper or bike, stairs
--- NOTE | 2024-01-11 16:17 | PT.OTN ---
Current Diagnoses Pain in left hip (01/11/24) Physical Therapy Treatment Note PT-OP-A Visit Information Start: 12/02/23 17:12 Freq: Status: Active Protocol: Document 01/11/24 13:50 AB (Rec: 01/11/24 16:17 AB [id number]) Out-Patient Physical Therapy Visit Information Visit Information Visit Type Treatment Note Visit Note 06/29 Visit Start Time 15:20 Visit Stop Time 16:12 Visit Number 4 Number of ARCHITECTURAL PRACTICE MANAGER Visits 2 Precautions Precautions No ext or abd L hip PT-OP-B Current Condition Start: 12/02/23 17:12 Freq: Status: Active Protocol: Document 12/30/23 13:01 [facility] (Rec: 12/30/23 13:51 [facility] [id number]) Current Condition History of Current Condition Onset Date 12/26 Current Complaints L ant DAVID History of Current Condition Pt had L anterior DAVID 12/26 without complications d/t OA. Pt has had B TKA and has had good recovery. Avoids getting down on knees and avoids running, and jumping. Pt reports got DAVID d/t gradual wearing down. Pt reports doing well with FWW Pt has SLH w/1 IVORY. Pt has tub shower w/hand rails. Has not showered yet. The day of sx, she did have some dizziness and hasn't had issues past couple days. No issues w/toilet. Pt has been getting assistance w/ compression socks and shoes and pants. Has mostly been wearing skirts. Sister staying w/pt now. Has been doing glute and quad sets, APs, and heel slides. Treatment Goals Patient/Caregiver Goals Wants to be able to walk and hike and be able to bike and swim and garden. Be able to squat PT-OP-C Subjective Start: 12/02/23 17:12 Freq: Status: Active Protocol: Document 01/11/24 13:50 AB (Rec: 01/11/24 16:17 AB [id number]) OP-PT Subjective Patient Comments Patient Comments Patient rates left hip ache 1. 5/10 ambulating into session with SPC. Patient reports the marching was better the second day at home. Pt reports she is to continue anti inflammatory 2 more weeks, baby asprin until check in MD, incision looks good. SLS left LE 12 seconds without UE use, reports hip feels a little wobbly at the start. Pt reports having bruising around left knee, reports PA commented the leg does get contorted during surgery. SLS left LE 12 seconds without UE use. PT-OP-G Mobility & Gait Start: 12/02/23 17:12 Freq: Status: Active Protocol: Document 12/30/23 13:01 [facility] (Rec: 12/30/23 13:51 [facility] [id number]) OP Mobility Evaluation Bed Mobility Supine to and from Sit uses RLE to help up LLE Transfers Sit to Stand puts LLE out in front and uses UEs to FWW OP Gait Assessment Assistive Devices Assistive Device Front Wheeled Walker Gait Deviations General Gait Pattern Antalgic,Decreased Stride Length PT-OP-M Strength Start: 12/02/23 17:12 Freq: Status: Active Protocol: Document 12/30/23 13:01 [facility] (Rec: 12/30/23 13:51 [facility] [id number]) Hip Strength Hip Manual Muscle Testing Right Flexion (L2) 4- Good- External Rotation 3+ Fair+ Internal Rotation 4 Good Left Flexion (L2) 3- Fair- External Rotation 3+ Fair+ Internal Rotation 3+ Fair+ Comments ER/IR in neutral Knee Strength Knee Manual Muscle Testing Right Flexion (S2) 5 Normal Extension (L3) 5 Normal Left Flexion (S2) 4 Good Extension (L3) 3+ Fair+ Ankle/Foot Strength Ankle and Foot Manual Muscle Testing Right Dorsiflexion (L4) 5 Normal Plantarflexion (S1) 5 Normal Left Dorsiflexion (L4) 5 Normal Plantarflexion (S1) 5 Normal Comments seated testing PT-OP-Q Treatments Start: 12/02/23 17:12 Freq: Status: Active Protocol: Document 01/11/24 13:50 AB (Rec: 01/11/24 16:17 AB [id number]) Gym Equipment Shuttle Recovery Unilateral Squats Details L and right LE Resistance 25# (teal) Shuttle Recovery Platform Stable Reps/Time 10 Bilateral Squats Resistance 50# (navy) Reps/Time 15 Shuttle Balance red clips Comments normal ROSSY with head turns, visual scanning CGA Therapeutic Exercises Supine Exercises mini bridge Supine Exercise Name HEP Side bilateral Reps/Minutes X15 Comments monitored for pain and form Standing Exercises step ups Standing Exercise Name 6 inch and 4 inch step Side left Reps/Minutes X2 each step with UE support Comments not added to HEP due to reports of pain/discomfort Manual Therapy Treatment Consent Patient gave verbal consent for manual Yes treatment Soft Tissue Mobilization left adductor Body Location area of decreased mobility increased tissue density Mobilization Type Cross-Friction,Rolling Intensity/Depth Superficial Body Position Hooklying Comments to moderate PT-OP-R Modalities Start: 12/02/23 17:12 Freq: Status: Active Protocol: Document 01/11/24 13:50 AB (Rec: 01/11/24 16:17 AB [id number]) Hot Pack/Cold Pack Treatment left adductor Patient Position Hooklying Comments 10 min PT-OP-T Assessment and Plan Start: 12/02/23 17:12 Freq: Status: Active Protocol: Document 01/11/24 13:50 AB (Rec: 01/11/24 16:17 AB [id number]) Physical Therapy Assessment Goals strength Short Term Goal (STG) Pt will be able to reciprocate up/down stairs w/rail STG Duration 01/29 Structural Fitter Goal (LTG) Pt will score at least 4+/5 on all BLE MMT to show improved strength and stability to allow greater ease w/activity. LTG Duration 03/09 balance Structural Fitter Goal (LTG) Pt will be able to do at least 10 sec SLS B LTG Duration 03/09/24 walking Short Term Goal (STG) Pt will be able to go for .5 mile walks w/pain no greater than 2/10 STG Duration 01/21 Structural Fitter Goal (LTG) Pt will report being able to return to hiking on uneven terrain for >2 miles w/o pain >2/10 LTG Duration 03/09 LEFS Impairment 18/80 Short Term Goal (STG) Pt will improve LEFS score to at least 35/80 to show improved functional ability. STG Duration 01/29 Fpc Goal (LTG) Pt will improve LEFS score to at least 55/80 to show improved functional ability. LTG Duration 03/09 Assessment Summary Assessment Patient reports discomfort with 6 inch step up with UE support, less with 4 inch, able to perform bridge without extending hip past neutral. Patient reports feeling better end of session. Physical Therapy Plan Frequency and Duration Frequency of Treatment 1-2x/wk Duration of treatment (weeks) 10 Plan of Care Start Date 12/30/23 Plan of Care End Date 03/09/24 Therapeutic Interventions Therapeutic Interventions Balance Training,Gait Training ,Home Exercise Program,Joint Mobilizations,Manual Therapy, Neuromuscular Re-education, Patient/Caregiver Education, Self-Care/Home Management,Soft Tissue Mobilization,Taping, Therapeutic Activities, Therapeutic Exercises Modalities Cold Pack/Ice Massage,Electric Stimulation,Hot Packs Next Visit Focus/Plan Next Note Type Treatment Note Next Visit Plan Avoid:hip abd & ext work on cane amb if able assess mary to standing march on HEP and progression of reps for sit to stands If SLS still painful Romber, tandem with left LE fwd. leg press and seated stepper or bike, stairs
--- NOTE | 2024-01-13 10:56 | PT.OTN ---
Current Diagnoses Pain in left hip (01/13/24) Physical Therapy Treatment Note PT-OP-A Visit Information Start: 12/02/23 17:12 Freq: Status: Active Protocol: Document 01/13/24 09:50 [facility] (Rec: 01/13/24 10:56 [facility] [id number]) Out-Patient Physical Therapy Visit Information Visit Information Visit Type Treatment Note Visit Note 07/29 Visit Start Time 09:49 Visit Stop Time 10:30 Visit Number 5 Number of BEAD SUPERVISOR Visits 0 PT-OP-B Current Condition Start: 12/02/23 17:12 Freq: Status: Active Protocol: Document 12/30/23 13:01 [facility] (Rec: 12/30/23 13:51 [facility] [id number]) Current Condition History of Current Condition Onset Date 12/26 Current Complaints L ant DAVID History of Current Condition Pt had L anterior DAVID 12/26 without complications d/t OA. Pt has had B TKA and has had good recovery. Avoids getting down on knees and avoids running, and jumping. Pt reports got DAVID d/t gradual wearing down. Pt reports doing well with FWW Pt has SLH w/1 IVORY. Pt has tub shower w/hand rails. Has not showered yet. The day of sx, she did have some dizziness and hasn't had issues past couple days. No issues w/toilet. Pt has been getting assistance w/ compression socks and shoes and pants. Has mostly been wearing skirts. Sister staying w/pt now. Has been doing glute and quad sets, APs, and heel slides. Treatment Goals Patient/Caregiver Goals Wants to be able to walk and hike and be able to bike and swim and garden. Be able to squat PT-OP-C Subjective Start: 12/02/23 17:12 Freq: Status: Active Protocol: Document 01/13/24 09:50 [facility] (Rec: 01/13/24 10:56 [facility] [id number]) OP-PT Subjective Patient Comments Patient Comments Pt reports she feels like she is progressing but L hip is sore today. FEels like sometimes 2 steps fwd, 1 step back PT-OP-G Mobility & Gait Start: 12/02/23 17:12 Freq: Status: Active Protocol: Document 12/30/23 13:01 [facility] (Rec: 12/30/23 13:51 [facility] [id number]) OP Mobility Evaluation Bed Mobility Supine to and from Sit uses RLE to help up LLE Transfers Sit to Stand puts LLE out in front and uses UEs to FWW OP Gait Assessment Assistive Devices Assistive Device Front Wheeled Walker Gait Deviations General Gait Pattern Antalgic,Decreased Stride Length PT-OP-M Strength Start: 12/02/23 17:12 Freq: Status: Active Protocol: Document 12/30/23 13:01 [facility] (Rec: 12/30/23 13:51 [facility] [id number]) Hip Strength Hip Manual Muscle Testing Right Flexion (L2) 4- Good- External Rotation 3+ Fair+ Internal Rotation 4 Good Left Flexion (L2) 3- Fair- External Rotation 3+ Fair+ Internal Rotation 3+ Fair+ Comments ER/IR in neutral Knee Strength Knee Manual Muscle Testing Right Flexion (S2) 5 Normal Extension (L3) 5 Normal Left Flexion (S2) 4 Good Extension (L3) 3+ Fair+ Ankle/Foot Strength Ankle and Foot Manual Muscle Testing Right Dorsiflexion (L4) 5 Normal Plantarflexion (S1) 5 Normal Left Dorsiflexion (L4) 5 Normal Plantarflexion (S1) 5 Normal Comments seated testing PT-OP-Q Treatments Start: 12/02/23 17:12 Freq: Status: Active Protocol: Document 01/13/24 09:50 [facility] (Rec: 01/13/24 10:56 [facility] [id number]) Cardio Equipment Recumbent Elliptical (Biodex) Duration (Minutes) 6 Resistance 3-4 Seat Position 8 Gym Equipment Shuttle Balance red clips Comments fwd & side: WBOS w/vertical and horizontal head turns fwd & side : NBOS balance Therapeutic Exercises Supine Exercises mini bridge Supine Exercise Name HEP review-avoid hyper ext Side bilateral Reps/Minutes x10 Comments monitored for pain and form Standing Exercises step ups Standing Exercise Name 4 in step Side left Reps/Minutes 10 Comments leg stay on step sit to stand Standing Exercise Name HEP changed to mini squats over chair Side bilateral Reps/Minutes 10 Comments comfortable range HS curl Side bilateral Equipment Used rail Reps/Minutes 10 ea Manual Therapy Treatment Consent Patient gave verbal consent for manual Yes treatment Soft Tissue Mobilization ITB Body Location r Mobilization Type Rolling Intensity/Depth Moderate Body Position Sidelying glutes Body Location r Mobilization Type Rolling,Sustained Pressure Intensity/Depth Moderate Body Position Sidelying left adductor Mobilization Type Rolling,Strumming Intensity/Depth Moderate PT-OP-R Modalities Start: 12/02/23 17:12 Freq: Status: Active Protocol: Document 01/11/24 13:50 AB (Rec: 01/11/24 16:17 AB [id number]) Hot Pack/Cold Pack Treatment left adductor Patient Position Hooklying Comments 10 min PT-OP-T Assessment and Plan Start: 12/02/23 17:12 Freq: Status: Active Protocol: Document 01/13/24 09:50 [facility] (Rec: 01/13/24 10:56 [facility] [id number]) Physical Therapy Assessment Goals strength Short Term Goal (STG) Pt will be able to reciprocate up/down stairs w/rail STG Duration 01/29 Residential Goal (LTG) Pt will score at least 4+/5 on all BLE MMT to show improved strength and stability to allow greater ease w/activity. LTG Duration 03/09 balance Welder/Installer Goal (LTG) Pt will be able to do at least 10 sec SLS B LTG Duration 03/09/24 walking Short Term Goal (STG) Pt will be able to go for .5 mile walks w/pain no greater than 2/10 STG Duration 01/21 Residential Goal (LTG) Pt will report being able to return to hiking on uneven terrain for >2 miles w/o pain >2/10 LTG Duration 03/09 LEFS Impairment 18/80 Short Term Goal (STG) Pt will improve LEFS score to at least 35/80 to show improved functional ability. STG Duration 01/29 Residential Goal (LTG) Pt will improve LEFS score to at least 55/80 to show improved functional ability. LTG Duration 03/09 Assessment Summary Assessment Pt did well with exercises w/o significant pain. Stopped sit to stands d/t pain and adjsuted to partial squats. Improved soft tissue mobility after manual. Physical Therapy Plan Frequency and Duration Frequency of Treatment 1-2x/wk Duration of treatment (weeks) 10 Plan of Care Start Date 12/30/23 Plan of Care End Date 03/09/24 Next Visit Focus/Plan Next Note Type Treatment Note Next Visit Plan Avoid:hip abd & ext work on gradual progression of strength and balance leg press and seated stepper or bike, stairs
--- NOTE | 2024-01-18 17:38 | PT.OTN ---
Current Diagnoses Pain in left hip (01/18/24) Physical Therapy Treatment Note PT-OP-A Visit Information Start: 12/02/23 17:12 Freq: Status: Active Protocol: Document 01/18/24 10:45 [facility] (Rec: 01/18/24 11:37 SW [id number]) Out-Patient Physical Therapy Visit Information Visit Information Visit Type Treatment Note Visit Note 08/29 pt running few min late Visit Start Time 09:50 Visit Stop Time 10:45 Visit Number 6 Number of RETIREMENT CONSULTANT Visits 1 Precautions Precautions Anterior hip 12/27/23 PT-OP-B Current Condition Start: 12/02/23 17:12 Freq: Status: Active Protocol: Document 12/30/23 13:01 [facility] (Rec: 12/30/23 13:51 [facility] [id number]) Current Condition History of Current Condition Onset Date 12/26 Current Complaints L ant DAVID History of Current Condition Pt had L anterior DAVID 12/26 without complications d/t OA. Pt has had B TKA and has had good recovery. Avoids getting down on knees and avoids running, and jumping. Pt reports got DAVID d/t gradual wearing down. Pt reports doing well with FWW Pt has SLH w/1 IVORY. Pt has tub shower w/hand rails. Has not showered yet. The day of sx, she did have some dizziness and hasn't had issues past couple days. No issues w/toilet. Pt has been getting assistance w/ compression socks and shoes and pants. Has mostly been wearing skirts. Sister staying w/pt now. Has been doing glute and quad sets, APs, and heel slides. Treatment Goals Patient/Caregiver Goals Wants to be able to walk and hike and be able to bike and swim and garden. Be able to squat PT-OP-C Subjective Start: 12/02/23 17:12 Freq: Status: Active Protocol: Document 01/18/24 10:45 SW (Rec: 01/18/24 11:37 SW [id number]) OP-PT Subjective Patient Comments Patient Comments Pt averaging 2 good walks a day, practicing step ups on stairs in middle of walk. HEP going well. PT-OP-G Mobility & Gait Start: 12/02/23 17:12 Freq: Status: Active Protocol: Document 12/30/23 13:01 [facility] (Rec: 12/30/23 13:51 [facility] [id number]) OP Mobility Evaluation Bed Mobility Supine to and from Sit uses RLE to help up LLE Transfers Sit to Stand puts LLE out in front and uses UEs to FWW OP Gait Assessment Assistive Devices Assistive Device Front Wheeled Walker Gait Deviations General Gait Pattern Antalgic,Decreased Stride Length PT-OP-M Strength Start: 12/02/23 17:12 Freq: Status: Active Protocol: Document 12/30/23 13:01 [facility] (Rec: 12/30/23 13:51 [facility] [id number]) Hip Strength Hip Manual Muscle Testing Right Flexion (L2) 4- Good- External Rotation 3+ Fair+ Internal Rotation 4 Good Left Flexion (L2) 3- Fair- External Rotation 3+ Fair+ Internal Rotation 3+ Fair+ Comments ER/IR in neutral Knee Strength Knee Manual Muscle Testing Right Flexion (S2) 5 Normal Extension (L3) 5 Normal Left Flexion (S2) 4 Good Extension (L3) 3+ Fair+ Ankle/Foot Strength Ankle and Foot Manual Muscle Testing Right Dorsiflexion (L4) 5 Normal Plantarflexion (S1) 5 Normal Left Dorsiflexion (L4) 5 Normal Plantarflexion (S1) 5 Normal Comments seated testing PT-OP-Q Treatments Start: 12/02/23 17:12 Freq: Status: Active Protocol: Document 01/18/24 10:45 SW (Rec: 01/18/24 11:37 SW [id number]) Cardio Equipment Recumbent Elliptical (Biodex) Duration (Minutes) 6 Resistance 4 Seat Position 8 Therapeutic Exercises Supine Exercises mini bridge Supine Exercise Name HEP review-avoid hyper ext Side bilateral Reps/Minutes x10 Comments monitored for pain and form Self-Care/Home Management Treatment Education Patient Education Joint Protection,Pain Management,Posture,Safety Other Education bed mobility, AD stability vs mobility and safety for balance, reviewed pt precautions, pain management modalities x15' PT-OP-R Modalities Start: 12/02/23 17:12 Freq: Status: Active Protocol: Document 01/18/24 10:45 SW (Rec: 01/18/24 17:38 SW [id number]) Hot Pack/Cold Pack Treatment left adductor Location L adductor/hip Patient Position Supine Patient Tolerance Good Comments bolster under LE izquierdo within reach, x15' PT-OP-T Assessment and Plan Start: 12/02/23 17:12 Freq: Status: Active Protocol: Document 01/18/24 10:45 [facility] (Rec: 01/18/24 11:37 [id number]) Physical Therapy Assessment Goals strength Short Term Goal (STG) Pt will be able to reciprocate up/down stairs w/rail STG Duration 01/29 First Calender Worker Goal (LTG) Pt will score at least 4+/5 on all BLE MMT to show improved strength and stability to allow greater ease w/activity. LTG Duration 03/09 balance First Calender Worker Goal (LTG) Pt will be able to do at least 10 sec SLS B LTG Duration 03/09/24 walking Short Term Goal (STG) Pt will be able to go for .5 mile walks w/pain no greater than 2/10 STG Duration 01/21 Halfway Goal (LTG) Pt will report being able to return to hiking on uneven terrain for >2 miles w/o pain >2/10 LTG Duration 03/09 LEFS Impairment 18/80 Short Term Goal (STG) Pt will improve LEFS score to at least 35/80 to show improved functional ability. STG Duration 01/29 First Calender Worker Goal (LTG) Pt will improve LEFS score to at least 55/80 to show improved functional ability. LTG Duration 03/09 Assessment Summary Assessment Pt education on stability vs mobility with AD and safety for balance with AD and Bed mobility. Pt had pain transitioning from sitting to supine on leg press today, ~4/ 10 in proximal quad, decreased with rest, ended session with manual work and modalities for symptom relief. Physical Therapy Plan Frequency and Duration Frequency of Treatment 1-2x/wk Duration of treatment (weeks) 10 Plan of Care Start Date 12/30/23 Plan of Care End Date 03/09/24 Therapeutic Interventions Therapeutic Interventions Balance Training,Gait Training ,Home Exercise Program,Joint Mobilizations,Manual Therapy, Neuromuscular Re-education, Patient/Caregiver Education, Self-Care/Home Management,Soft Tissue Mobilization,Taping, Therapeutic Activities, Therapeutic Exercises Modalities Cold Pack/Ice Massage,Electric Stimulation,Hot Packs Next Visit Focus/Plan Next Note Type Treatment Note Next Visit Plan Avoid:hip abd & ext work on gradual progression of strength and balance leg press and seated stepper or bike, stairs
--- NOTE | 2024-01-20 13:09 | PT.OTN ---
Current Diagnoses Pain in left hip (01/20/24) Physical Therapy Treatment Note PT-OP-A Visit Information Start: 12/02/23 17:12 Freq: Status: Active Protocol: Document 01/20/24 09:44 SW (Rec: 01/20/24 10:40 SW [id number]) Out-Patient Physical Therapy Visit Information Visit Information Visit Type Treatment Note Visit Note 09/28 Visit Start Time 09:45 Visit Stop Time 10:35 Visit Number 7 Number of INSIDE SALES CONSULTANT Visits 2 Precautions Precautions Anterior hip 12/27/23 PT-OP-B Current Condition Start: 12/02/23 17:12 Freq: Status: Active Protocol: Document 12/30/23 13:01 [facility] (Rec: 12/30/23 13:51 [facility] [id number]) Current Condition History of Current Condition Onset Date 12/26 Current Complaints L ant DAVID History of Current Condition Pt had L anterior DAVID 12/26 without complications d/t OA. Pt has had B TKA and has had good recovery. Avoids getting down on knees and avoids running, and jumping. Pt reports got DAVID d/t gradual wearing down. Pt reports doing well with FWW Pt has SLH w/1 IVORY. Pt has tub shower w/hand rails. Has not showered yet. The day of sx, she did have some dizziness and hasn't had issues past couple days. No issues w/toilet. Pt has been getting assistance w/ compression socks and shoes and pants. Has mostly been wearing skirts. Sister staying w/pt now. Has been doing glute and quad sets, APs, and heel slides. Treatment Goals Patient/Caregiver Goals Wants to be able to walk and hike and be able to bike and swim and garden. Be able to squat PT-OP-C Subjective Start: 12/02/23 17:12 Freq: Status: Active Protocol: Document 01/20/24 09:44 SW (Rec: 01/20/24 10:40 SW [id number]) OP-PT Subjective Patient Comments Patient Comments Pt reports pain level 4/10 currently in quad muscle, Wednesday pain level reported as 10/10. Pt reports did some exercises, and massage. Using SPC. PT-OP-G Mobility & Gait Start: 12/02/23 17:12 Freq: Status: Active Protocol: Document 12/30/23 13:01 [facility] (Rec: 12/30/23 13:51 [facility] [id number]) OP Mobility Evaluation Bed Mobility Supine to and from Sit uses RLE to help up LLE Transfers Sit to Stand puts LLE out in front and uses UEs to FWW OP Gait Assessment Assistive Devices Assistive Device Front Wheeled Walker Gait Deviations General Gait Pattern Antalgic,Decreased Stride Length PT-OP-M Strength Start: 12/02/23 17:12 Freq: Status: Active Protocol: Document 12/30/23 13:01 [facility] (Rec: 12/30/23 13:51 [facility] [id number]) Hip Strength Hip Manual Muscle Testing Right Flexion (L2) 4- Good- External Rotation 3+ Fair+ Internal Rotation 4 Good Left Flexion (L2) 3- Fair- External Rotation 3+ Fair+ Internal Rotation 3+ Fair+ Comments ER/IR in neutral Knee Strength Knee Manual Muscle Testing Right Flexion (S2) 5 Normal Extension (L3) 5 Normal Left Flexion (S2) 4 Good Extension (L3) 3+ Fair+ Ankle/Foot Strength Ankle and Foot Manual Muscle Testing Right Dorsiflexion (L4) 5 Normal Plantarflexion (S1) 5 Normal Left Dorsiflexion (L4) 5 Normal Plantarflexion (S1) 5 Normal Comments seated testing PT-OP-Q Treatments Start: 12/02/23 17:12 Freq: Status: Active Protocol: Document 01/20/24 09:44 SW (Rec: 01/20/24 10:40 SW [id number]) Cardio Equipment Recumbent Elliptical (Biodex) Duration (Minutes) 6 Resistance 4 Seat Position 8 Therapeutic Exercises Sitting Exercises LAQ Side bilateral Equipment Used AROM>3 hold Reps/Minutes X15 Comments no increase in pain Standing Exercises Mini squats Standing Exercise Name Mini squat Side bilateral Resistance AROM Equipment Used @ rail for balance, Reps/Minutes x10 Comments cues for slow controlled movement, step ups Standing Exercise Name 4 in step, Trialed 6 movement only no step up d/c today Side left Reps/Minutes 10 Comments leg stay on step HS curl Side bilateral Equipment Used rail Reps/Minutes 15 ea Comments cues for slow eccentric control heel raises Standing Exercise Name heel and toe raises Side bilateral Equipment Used rail Reps/Minutes X15 ea Comments verbal cues to lower heels to floor slowly PT-OP-R Modalities Start: 12/02/23 17:12 Freq: Status: Active Protocol: Document 01/20/24 09:44 SW (Rec: 01/20/24 10:44 SW [id number]) Electric Stimulation Electric Stimulation Quad Body Location Quad Intensity 11 Target/Sweep Sweep High/Low Low Patient Position Hooklying Combined With Heat/Cold Cold Pack Comments Bolster under LE, izquierdo within reach, x10', electrodes surrounding quad muscle, not over surgical site PT-OP-T Assessment and Plan Start: 12/02/23 17:12 Freq: Status: Active Protocol: Document 01/20/24 09:44 SW (Rec: 01/20/24 10:40 SW [id number]) Physical Therapy Assessment Rehab Potential Rehabilitation Potential Excellent Evaluation Complexity Number of Personal Factors/Comorbidities 1-2 Number of Body Systems Impaired 4 or More Clinical Presentation at Evaluation Evolving Impairments Impairments Activity Tolerance,Balance, Edema,Functional Activities, Functional Mobility,Gait, Integument,Pain,Posture,ROM, Soft Tissue Mobility,Strength, Transfers Goals strength Short Term Goal (STG) Pt will be able to reciprocate up/down stairs w/rail STG Duration 01/29 Detention Goal (LTG) Pt will score at least 4+/5 on all BLE MMT to show improved strength and stability to allow greater ease w/activity. LTG Duration 03/09 balance Semiconductor Engineer Goal (LTG) Pt will be able to do at least 10 sec SLS B LTG Duration 03/09/24 walking Short Term Goal (STG) Pt will be able to go for .5 mile walks w/pain no greater than 2/10 STG Duration 01/21 Detention Goal (LTG) Pt will report being able to return to hiking on uneven terrain for >2 miles w/o pain >2/10 LTG Duration 03/09 LEFS Impairment 18/80 Short Term Goal (STG) Pt will improve LEFS score to at least 35/80 to show improved functional ability. STG Duration 01/29 Detention Goal (LTG) Pt will improve LEFS score to at least 55/80 to show improved functional ability. LTG Duration 03/09 Assessment Summary Assessment Pt reports to PT today in decreased pain level from previous session. Pt reports pulling and discomfort in L quad muscle that is consistant , denies increase in pain level throughout session. Pt setback with pain level, unable to do all the exercises at home, though reports has an improved tolerance yesterday and today. Trialed electrical stimulation w/cold pack today post session for pt pain, tolerated well. Physical Therapy Plan Frequency and Duration Frequency of Treatment 1-2x/wk Duration of treatment (weeks) 10 Plan of Care Start Date 12/30/23 Plan of Care End Date 03/09/24 Therapeutic Interventions Therapeutic Interventions Balance Training,Gait Training ,Home Exercise Program,Joint Mobilizations,Manual Therapy, Neuromuscular Re-education, Patient/Caregiver Education, Self-Care/Home Management,Soft Tissue Mobilization,Taping, Therapeutic Activities, Therapeutic Exercises Modalities Cold Pack/Ice Massage,Electric Stimulation,Hot Packs Next Visit Focus/Plan Next Note Type Treatment Note Next Visit Plan Avoid:hip abd & ext work on gradual progression of strength and balance leg press and seated stepper or bike, stairs
--- NOTE | 2024-01-25 10:45 | PT.OTN ---
Current Diagnoses Pain in left hip (01/25/24) Physical Therapy Treatment Note PT-OP-A Visit Information Start: 12/02/23 17:12 Freq: Status: Active Protocol: Document 01/25/24 09:48 MB (Rec: 01/25/24 10:45 MB [id number]) Out-Patient Physical Therapy Visit Information Visit Information Visit Type Progress Note Visit Start Time 09:48 Visit Stop Time 10:28 Visit Number 8 Number of CONSULTING SENIOR PRACTICE DIRECTOR Visits 0 Precautions Precautions Anterior hip 12/27/23 PT-OP-B Current Condition Start: 12/02/23 17:12 Freq: Status: Active Protocol: Document 12/30/23 13:01 [facility] (Rec: 12/30/23 13:51 [facility] [id number]) Current Condition History of Current Condition Onset Date 12/26 Current Complaints L ant DAVID History of Current Condition Pt had L anterior DAVID 12/26 without complications d/t OA. Pt has had B TKA and has had good recovery. Avoids getting down on knees and avoids running, and jumping. Pt reports got DAVID d/t gradual wearing down. Pt reports doing well with FWW Pt has SLH w/1 IVORY. Pt has tub shower w/hand rails. Has not showered yet. The day of sx, she did have some dizziness and hasn't had issues past couple days. No issues w/toilet. Pt has been getting assistance w/ compression socks and shoes and pants. Has mostly been wearing skirts. Sister staying w/pt now. Has been doing glute and quad sets, APs, and heel slides. Treatment Goals Patient/Caregiver Goals Wants to be able to walk and hike and be able to bike and swim and garden. Be able to squat PT-OP-C Subjective Start: 12/02/23 17:12 Freq: Status: Active Protocol: Document 01/25/24 09:48 MB (Rec: 01/25/24 10:45 MB [id number]) OP-PT Subjective Patient Comments Patient Comments Pt reports that one treatment where she went to get on the leg press and she felt a big pull in the front of her left hip. E-stim was helpful. She has been doing exercises and icing. She took an acetaminofen today before PT. She returns to Dr. Raya on 02/10. PT-OP-G Mobility & Gait Start: 12/02/23 17:12 Freq: Status: Active Protocol: Document 12/30/23 13:01 [facility] (Rec: 12/30/23 13:51 [facility] [id number]) OP Mobility Evaluation Bed Mobility Supine to and from Sit uses RLE to help up LLE Transfers Sit to Stand puts LLE out in front and uses UEs to FWW OP Gait Assessment Assistive Devices Assistive Device Front Wheeled Walker Gait Deviations General Gait Pattern Antalgic,Decreased Stride Length PT-OP-M Strength Start: 12/02/23 17:12 Freq: Status: Active Protocol: Document 12/30/23 13:01 [facility] (Rec: 12/30/23 13:51 [facility] [id number]) Hip Strength Hip Manual Muscle Testing Right Flexion (L2) 4- Good- External Rotation 3+ Fair+ Internal Rotation 4 Good Left Flexion (L2) 3- Fair- External Rotation 3+ Fair+ Internal Rotation 3+ Fair+ Comments ER/IR in neutral Knee Strength Knee Manual Muscle Testing Right Flexion (S2) 5 Normal Extension (L3) 5 Normal Left Flexion (S2) 4 Good Extension (L3) 3+ Fair+ Ankle/Foot Strength Ankle and Foot Manual Muscle Testing Right Dorsiflexion (L4) 5 Normal Plantarflexion (S1) 5 Normal Left Dorsiflexion (L4) 5 Normal Plantarflexion (S1) 5 Normal Comments seated testing PT-OP-Q Treatments Start: 12/02/23 17:12 Freq: Status: Active Protocol: Document 01/25/24 09:48 MB (Rec: 01/25/24 10:45 MB [id number]) Cardio Equipment Bicycle (Upright) Duration (Minutes) 10 Resistance 3 Seat Position 7 Other Pain decrease from 4 to 2/10 after upright bike Therapeutic Exercises Supine Exercises MMT LEs Comments See goals for findings today Other Exercises HEP review on progress note Comments Verbally reviewed what she is doing at home, ed upright chair, hips higher Gait Training Gait Activity Gait observation throughout treatment Comments Similar pattern as 6MWT 6MWT Comments Cane in right hand: pt gait trains 891 feet in 6 minutes with slow jania, mildly antaglic pattern and decreased step-length and mild step-to pattern. Pain 2/10 today Manual Therapy Treatment Consent Patient gave verbal consent for manual Yes treatment Other Other Manual Treatments Pt supine with head and legs supported: STM and positional release at left hip flexor at iliac crest and left hip adductors PT-OP-R Modalities Start: 12/02/23 17:12 Freq: Status: Active Protocol: Document 01/20/24 09:44 SW (Rec: 01/20/24 10:44 SW [id number]) Electric Stimulation Electric Stimulation Quad Body Location Quad Intensity 11 Target/Sweep Sweep High/Low Low Patient Position Hooklying Combined With Heat/Cold Cold Pack Comments Bolster under LE, izquierdo within reach, x10', electrodes surrounding quad muscle, not over surgical site PT-OP-T Assessment and Plan Start: 12/02/23 17:12 Freq: Status: Active Protocol: Document 01/25/24 09:48 MB (Rec: 01/25/24 10:45 MB [id number]) Physical Therapy Assessment Rehab Potential Rehabilitation Potential Good Evaluation Complexity Number of Personal Factors/Comorbidities 1-2 Number of Body Systems Impaired 4 or More Clinical Presentation at Evaluation Evolving Impairments Impairments Activity Tolerance,Balance, Edema,Functional Activities, Functional Mobility,Gait, Integument,Pain,Posture,ROM, Soft Tissue Mobility,Strength, Transfers Goals strength Short Term Goal (STG) Pt will be able to reciprocate up/down stairs w/rail 01/25/24: Did not attempt on progress note given pain and guarding behavior. STG Duration 02/18 Penitentiary Goal (LTG) Pt will score at least 4+/5 on all BLE MMT to show improved strength and stability to allow greater ease w/activity. 01/25/24: Pt supine: B DF and great toe extension 5/5; right knee flexion and extension: 5 /5; right hip flexion and extension and abduction 4+/5; left knee: with attempted knee flexion testing, pt reports pain at hip and gives way at 3 +/5 and knee extension also causes hip pain with strength 4/5. MMT left hip deferred d/t pain. LTG Duration 03/20 balance Penitentiary Goal (LTG) Pt will be able to do at least 10 sec SLS B. 01/25/24: Pt not ready to perform on progress note. LTG Duration 03/20/24 walking Short Term Goal (STG) Pt will be able to go for .5 mile walks w/pain no greater than 2/10. 01/25/24: Pt is walking with her SPC in right hand .5 mile with no more than 2/10 pain. 6MWT today with cane in right hand: 891 feet with mildly antalgic gait, slow jania and partial step-to pattern STG Duration Met, though using cane Penitentiary Goal (LTG) Pt will report being able to return to hiking on uneven terrain for >2 miles w/o pain >2/10 with use of no AD or with use of hiking sticks. LTG Duration 03/20 LEFS Impairment 18/80 Short Term Goal (STG) Pt will improve LEFS score to at least 35/80 to show improved functional ability. 01/25/24: LEF score is 32/80. STG Duration Progressed Minesweeping Officer Goal (LTG) Pt will improve LEFS score to at least 55/80 to show improved functional ability. 01/25/24: LEF score is 32/80. LTG Duration 03/20 Assessment Summary Assessment Pt reports con't pain near incision and at left groin after event a previous treatment when getting on the leg press. She states she was cleared by primary PT to con't PT. Pt progressed to upright bike today and this is a good way to work synovial fluid and hip movement in a safe way. 6MWT is slow and she is progressing with LEF. She has left hip pain with attempted MMT left knee and MMT left hip deferred. Manual work revealed tension and pain left adductors and hip flexor at iliac area and STM today. Con' t per primary PT's POC. She sees surgeon at the end of the month and surgeon to recheck surgical area. Physical Therapy Plan Frequency and Duration Frequency of Treatment 1-2x/wk Duration of treatment (weeks) 8 Plan of Care Start Date 01/25/24 Plan of Care End Date 03/21/24 Therapeutic Interventions Therapeutic Interventions Balance Training,Gait Training ,Home Exercise Program,Joint Mobilizations,Manual Therapy, Neuromuscular Re-education, Patient/Caregiver Education, Self-Care/Home Management,Soft Tissue Mobilization,Taping, Therapeutic Activities, Therapeutic Exercises Modalities Cold Pack/Ice Massage,Electric Stimulation,Hot Packs, Ultrasound Next Visit Focus/Plan Next Note Type Treatment Note Next Visit Plan Avoid:hip abd & ext work on gradual progression of strength and balance Upright bike, review HEP, progress per primary PT's plan , ongoing 6MWT to improve gait speed, consider teaching use of hiking sticks
--- NOTE | 2024-02-03 13:48 | PT.OTN ---
Current Diagnoses Pain in left hip (02/03/24) Physical Therapy Treatment Note PT-OP-A Visit Information Start: 12/02/23 17:12 Freq: Status: Active Protocol: Document 02/03/24 09:57 SW (Rec: 02/03/24 10:47 SW [id number]) Out-Patient Physical Therapy Visit Information Visit Information Visit Type Treatment Note Visit Note PT, Betty in for check in at start of session. Visit Start Time 09:49 Visit Stop Time 10:41 Visit Number 9 Number of MANAGER CLINIC Visits 1 Precautions Precautions Anterior hip 12/27/23 PT-OP-B Current Condition Start: 12/02/23 17:12 Freq: Status: Active Protocol: Document 12/30/23 13:01 [facility] (Rec: 12/30/23 13:51 [facility] [id number]) Current Condition History of Current Condition Onset Date 12/26 Current Complaints L ant DAVID History of Current Condition Pt had L anterior DAVID 12/26 without complications d/t OA. Pt has had B TKA and has had good recovery. Avoids getting down on knees and avoids running, and jumping. Pt reports got DAVID d/t gradual wearing down. Pt reports doing well with FWW Pt has SLH w/1 IVORY. Pt has tub shower w/hand rails. Has not showered yet. The day of sx, she did have some dizziness and hasn't had issues past couple days. No issues w/toilet. Pt has been getting assistance w/ compression socks and shoes and pants. Has mostly been wearing skirts. Sister staying w/pt now. Has been doing glute and quad sets, APs, and heel slides. Treatment Goals Patient/Caregiver Goals Wants to be able to walk and hike and be able to bike and swim and garden. Be able to squat PT-OP-C Subjective Start: 12/02/23 17:12 Freq: Status: Active Protocol: Document 02/03/24 09:57 SW (Rec: 02/03/24 10:47 SW [id number]) OP-PT Subjective Patient Comments Patient Comments Pt reports walking thanh says pt is averaging about 1 1/2 miles a day, one day pt did 2 miles in one walk, and that was too much. Pt has been icing and using a heating pad in the morning prior to exercises and that has been helping. PT-OP-G Mobility & Gait Start: 12/02/23 17:12 Freq: Status: Active Protocol: Document 12/30/23 13:01 [facility] (Rec: 12/30/23 13:51 [facility] [id number]) OP Mobility Evaluation Bed Mobility Supine to and from Sit uses RLE to help up LLE Transfers Sit to Stand puts LLE out in front and uses UEs to FWW OP Gait Assessment Assistive Devices Assistive Device Front Wheeled Walker Gait Deviations General Gait Pattern Antalgic,Decreased Stride Length PT-OP-M Strength Start: 12/02/23 17:12 Freq: Status: Active Protocol: Document 12/30/23 13:01 [facility] (Rec: 12/30/23 13:51 [facility] [id number]) Hip Strength Hip Manual Muscle Testing Right Flexion (L2) 4- Good- External Rotation 3+ Fair+ Internal Rotation 4 Good Left Flexion (L2) 3- Fair- External Rotation 3+ Fair+ Internal Rotation 3+ Fair+ Comments ER/IR in neutral Knee Strength Knee Manual Muscle Testing Right Flexion (S2) 5 Normal Extension (L3) 5 Normal Left Flexion (S2) 4 Good Extension (L3) 3+ Fair+ Ankle/Foot Strength Ankle and Foot Manual Muscle Testing Right Dorsiflexion (L4) 5 Normal Plantarflexion (S1) 5 Normal Left Dorsiflexion (L4) 5 Normal Plantarflexion (S1) 5 Normal Comments seated testing PT-OP-Q Treatments Start: 12/02/23 17:12 Freq: Status: Active Protocol: Document 02/03/24 09:57 SW (Rec: 02/03/24 10:47 SW [id number]) Cardio Equipment Bicycle (Upright) Duration (Minutes) 10 Resistance 3 Seat Position 7 Other Pain decrease from Therapeutic Exercises Supine Exercises Hip Add Supine Exercise Name Hip Add Side bilateral Resistance Isometric Equipment Used rolled towel between knees Reps/Minutes x10 Comments cues for gentle contraction, pain free Standing Exercises Mini squats Standing Exercise Name Mini squat Side bilateral Resistance AROM Equipment Used chair behind Reps/Minutes 2x10 Comments cues for slow controlled movement, step ups Standing Exercise Name Step up Side left Equipment Used 4 step Comments leg stay on step heel raises Standing Exercise Name heel and toe raises Side bilateral Equipment Used rail Reps/Minutes 2x10 Comments verbal cues to lower heels to floor slowly Neuro Re-Education Treatment Balance Activities SLS Surface floor Equipment @ rail Reps/Duration X2 left LE Comments close SBA, monitored for pain, light touch BACKGROUND CHECK COORDINATOR PT-OP-R Modalities Start: 12/02/23 17:12 Freq: Status: Active Protocol: Document 02/03/24 09:57 SW (Rec: 02/03/24 12:54 [id number]) Electric Stimulation Electric Stimulation Quad Body Location Quad Intensity 13 Target/Sweep Sweep High/Low Low Patient Position Hooklying Combined With Heat/Cold Cold Pack Comments Bolster under LE, izquierdo within reach, x10', electrodes surrounding quad muscle, not over surgical site, good tolerance PT-OP-T Assessment and Plan Start: 12/02/23 17:12 Freq: Status: Active Protocol: Document 02/03/24 09:57 SW (Rec: 02/03/24 10:47 [id number]) Physical Therapy Assessment Goals strength Short Term Goal (STG) Pt will be able to reciprocate up/down stairs w/rail 01/25/24: Did not attempt on progress note given pain and guarding behavior. STG Duration 02/18 Warp Trucker Goal (LTG) Pt will score at least 4+/5 on all BLE MMT to show improved strength and stability to allow greater ease w/activity. 01/25/24: Pt supine: B DF and great toe extension 5/5; right knee flexion and extension: 5 /5; right hip flexion and extension and abduction 4+/5; left knee: with attempted knee flexion testing, pt reports pain at hip and gives way at 3 +/5 and knee extension also causes hip pain with strength 4/5. MMT left hip deferred d/t pain. LTG Duration 03/20 balance Mcc Goal (LTG) Pt will be able to do at least 10 sec SLS B. 01/25/24: Pt not ready to perform on progress note. LTG Duration 03/20/24 walking Short Term Goal (STG) Pt will be able to go for .5 mile walks w/pain no greater than 2/10. 01/25/24: Pt is walking with her SPC in right hand .5 mile with no more than 2/10 pain. 6MWT today with cane in right hand: 891 feet with mildly antalgic gait, slow jania and partial step-to pattern STG Duration Met, though using cane Mcc Goal (LTG) Pt will report being able to return to hiking on uneven terrain for >2 miles w/o pain >2/10 with use of no AD or with use of hiking sticks. LTG Duration 03/20 LEFS Impairment 18/80 Short Term Goal (STG) Pt will improve LEFS score to at least 35/80 to show improved functional ability. 01/25/24: LEF score is 32/80. STG Duration Progressed Mcc Goal (LTG) Pt will improve LEFS score to at least 55/80 to show improved functional ability. 01/25/24: LEF score is 32/80. LTG Duration 03/20 Assessment Summary Assessment Pt reports pain with open chain hip flexion with resistance exercise, discontinued today. Step ups on 4 step slightly increased pain, dc'd for today, plan to trial again in future sessions as tolerated. Pt tolerates mini squats well, reviewed and cued for form, good carryover . Initiated isometric hip add strength today, good feedback, pain free. Pt has persistant 2/10 pain level, ended with electrical stim w/ ice pack. Physical Therapy Plan Frequency and Duration Frequency of Treatment 1-2x/wk Duration of treatment (weeks) 8 Plan of Care Start Date 01/25/24 Plan of Care End Date 03/21/24 Therapeutic Interventions Therapeutic Interventions Balance Training,Gait Training ,Home Exercise Program,Joint Mobilizations,Manual Therapy, Neuromuscular Re-education, Patient/Caregiver Education, Self-Care/Home Management,Soft Tissue Mobilization,Taping, Therapeutic Activities, Therapeutic Exercises Modalities Cold Pack/Ice Massage,Electric Stimulation,Hot Packs, Ultrasound Next Visit Focus/Plan Next Note Type Treatment Note Next Visit Plan Avoid:hip abd & ext work on gradual progression of strength and balance Next session: followup on new HEP hip add, Limit hip flexion exercises due to pain, pt tolerated closed chain hip flexion with mini squats well this session. Upright bike, review HEP, progress per primary PT's plan , ongoing 6MWT to improve gait speed, consider teaching use of hiking sticks
--- NOTE | 2024-02-08 16:17 | PT.OTN ---
Current Diagnoses Pain in left hip (02/08/24) Physical Therapy Treatment Note PT-OP-A Visit Information Start: 12/02/23 17:12 Freq: Status: Active Protocol: Document 02/08/24 13:11 [facility] (Rec: 02/08/24 15:23 [facility] [id number]) Out-Patient Physical Therapy Visit Information Visit Information Visit Type Treatment Note Visit Start Time 13:06 Visit Stop Time 13:45 Visit Number 10 Number of BREAKER OFF Visits 0 PT-OP-B Current Condition Start: 12/02/23 17:12 Freq: Status: Active Protocol: Document 12/30/23 13:01 [facility] (Rec: 12/30/23 13:51 [facility] [id number]) Current Condition History of Current Condition Onset Date 12/26 Current Complaints L ant DAVID History of Current Condition Pt had L anterior DAVID 12/26 without complications d/t OA. Pt has had B TKA and has had good recovery. Avoids getting down on knees and avoids running, and jumping. Pt reports got DAVID d/t gradual wearing down. Pt reports doing well with FWW Pt has SLH w/1 IVORY. Pt has tub shower w/hand rails. Has not showered yet. The day of sx, she did have some dizziness and hasn't had issues past couple days. No issues w/toilet. Pt has been getting assistance w/ compression socks and shoes and pants. Has mostly been wearing skirts. Sister staying w/pt now. Has been doing glute and quad sets, APs, and heel slides. Treatment Goals Patient/Caregiver Goals Wants to be able to walk and hike and be able to bike and swim and garden. Be able to squat PT-OP-C Subjective Start: 12/02/23 17:12 Freq: Status: Active Protocol: Document 02/08/24 13:11 [facility] (Rec: 02/08/24 15:23 [facility] [id number]) OP-PT Subjective Patient Comments Patient Comments Its a challenge to clean the house because she wears out and inc pain in L groin. has been working on scar. Getting in exercises PT-OP-G Mobility & Gait Start: 12/02/23 17:12 Freq: Status: Active Protocol: Document 12/30/23 13:01 [facility] (Rec: 12/30/23 13:51 [facility] [id number]) OP Mobility Evaluation Bed Mobility Supine to and from Sit uses RLE to help up LLE Transfers Sit to Stand puts LLE out in front and uses UEs to FWW OP Gait Assessment Assistive Devices Assistive Device Front Wheeled Walker Gait Deviations General Gait Pattern Antalgic,Decreased Stride Length PT-OP-M Strength Start: 12/02/23 17:12 Freq: Status: Active Protocol: Document 12/30/23 13:01 [facility] (Rec: 12/30/23 13:51 [facility] [id number]) Hip Strength Hip Manual Muscle Testing Right Flexion (L2) 4- Good- External Rotation 3+ Fair+ Internal Rotation 4 Good Left Flexion (L2) 3- Fair- External Rotation 3+ Fair+ Internal Rotation 3+ Fair+ Comments ER/IR in neutral Knee Strength Knee Manual Muscle Testing Right Flexion (S2) 5 Normal Extension (L3) 5 Normal Left Flexion (S2) 4 Good Extension (L3) 3+ Fair+ Ankle/Foot Strength Ankle and Foot Manual Muscle Testing Right Dorsiflexion (L4) 5 Normal Plantarflexion (S1) 5 Normal Left Dorsiflexion (L4) 5 Normal Plantarflexion (S1) 5 Normal Comments seated testing PT-OP-Q Treatments Start: 12/02/23 17:12 Freq: Status: Active Protocol: Document 02/08/24 13:11 [facility] (Rec: 02/08/24 15:23 [facility] [id number]) Cardio Equipment Bicycle (Upright) Duration (Minutes) 5 Resistance 5 Seat Position 7 Therapeutic Exercises Sitting Exercises wt acceptance Sitting Exercise Name traction to femur for improved glute facil Side left Standing Exercises step down Side left Equipment Used 4 in w/rail Reps/Minutes 8 Mini squats Standing Exercise Name Mini squat Side bilateral Resistance AROM Equipment Used chair behind Reps/Minutes x15 Comments cues for slow controlled movement, step ups Standing Exercise Name Step up Side left Equipment Used 4 step Reps/Minutes 10 Comments leg stay on step-cues drive thru L foot and full knee ext HS curl Side bilateral Equipment Used rail Reps/Minutes 2 ea Comments stop d/t HS cramping Manual Therapy Treatment Consent Patient gave verbal consent for manual Yes treatment Soft Tissue Mobilization scar Body Location L Mobilization Type Myofascial Release Intensity/Depth Superficial HS Body Location L proximal Mobilization Type Rolling Intensity/Depth Moderate left adductor Mobilization Type Rolling,Strumming Intensity/Depth Moderate PT-OP-R Modalities Start: 12/02/23 17:12 Freq: Status: Active Protocol: Document 02/03/24 09:57 SW (Rec: 02/03/24 12:54 SW [id number]) Electric Stimulation Electric Stimulation Quad Body Location Quad Intensity 13 Target/Sweep Sweep High/Low Low Patient Position Hooklying Combined With Heat/Cold Cold Pack Comments Bolster under LE, izquierdo within reach, x10', electrodes surrounding quad muscle, not over surgical site, good tolerance PT-OP-T Assessment and Plan Start: 12/02/23 17:12 Freq: Status: Active Protocol: Document 02/08/24 13:11 [facility] (Rec: 02/08/24 15:23 [facility] [id number]) Physical Therapy Assessment Goals strength Short Term Goal (STG) Pt will be able to reciprocate up/down stairs w/rail 01/25/24: Did not attempt on progress note given pain and guarding behavior. STG Duration 02/18 Director Marketing Communications Goal (LTG) Pt will score at least 4+/5 on all BLE MMT to show improved strength and stability to allow greater ease w/activity. 01/25/24: Pt supine: B DF and great toe extension 5/5; right knee flexion and extension: 5 /5; right hip flexion and extension and abduction 4+/5; left knee: with attempted knee flexion testing, pt reports pain at hip and gives way at 3 +/5 and knee extension also causes hip pain with strength 4/5. MMT left hip deferred d/t pain. LTG Duration 03/20 balance Director Marketing Communications Goal (LTG) Pt will be able to do at least 10 sec SLS B. 01/25/24: Pt not ready to perform on progress note. LTG Duration 03/20/24 walking Short Term Goal (STG) Pt will be able to go for .5 mile walks w/pain no greater than 2/10. 01/25/24: Pt is walking with her SPC in right hand .5 mile with no more than 2/10 pain. 6MWT today with cane in right hand: 891 feet with mildly antalgic gait, slow jania and partial step-to pattern STG Duration Met, though using cane Director Marketing Communications Goal (LTG) Pt will report being able to return to hiking on uneven terrain for >2 miles w/o pain >2/10 with use of no AD or with use of hiking sticks. LTG Duration 03/20 LEFS Impairment 18/80 Short Term Goal (STG) Pt will improve LEFS score to at least 35/80 to show improved functional ability. 01/25/24: LEF score is 32/80. STG Duration Progressed Director Marketing Communications Goal (LTG) Pt will improve LEFS score to at least 55/80 to show improved functional ability. 01/25/24: LEF score is 32/80. LTG Duration 03/20 Assessment Summary Assessment Pt had improved hip flex from about 80 deg to 95 deg after manual. Cues needed with step ups. encouraged to drink miore wter to help w/cramps. Cont to need work on facilitation to LE for improved glute facilitationf or wt acceptance . Physical Therapy Plan Frequency and Duration Frequency of Treatment 1-2x/wk Duration of treatment (weeks) 8 Plan of Care Start Date 01/25/24 Plan of Care End Date 03/21/24 Next Visit Focus/Plan Next Note Type Treatment Note Next Visit Plan Avoid:hip abd & ext work on gradual progression of strength and balance Next session: followup on new HEP hip add, Limit hip flexion exercises due to pain, pt tolerated closed chain hip flexion with mini squats well this session. Upright bike, review HEP, progress per primary PT's plan , ongoing 6MWT to improve gait speed, consider teaching use of hiking sticks
--- NOTE | 2024-02-09 12:17 | PT.OTN ---
Current Diagnoses Pain in left hip (02/08/24) Physical Therapy Treatment Note PT-OP-A Visit Information Start: 12/02/23 17:12 Freq: Status: Active Protocol: Document 02/08/24 13:11 [facility] (Rec: 02/08/24 15:23 [facility] [id number]) Out-Patient Physical Therapy Visit Information Visit Information Visit Type Treatment Note Visit Start Time 13:06 Visit Stop Time 13:45 Visit Number 10 Number of WORSHIP LEADER Visits 0 PT-OP-B Current Condition Start: 12/02/23 17:12 Freq: Status: Active Protocol: Document 12/30/23 13:01 [facility] (Rec: 12/30/23 13:51 [facility] [id number]) Current Condition History of Current Condition Onset Date 12/26 Current Complaints L ant DAVID History of Current Condition Pt had L anterior DAVID 12/26 without complications d/t OA. Pt has had B TKA and has had good recovery. Avoids getting down on knees and avoids running, and jumping. Pt reports got DAVID d/t gradual wearing down. Pt reports doing well with FWW Pt has SLH w/1 IVORY. Pt has tub shower w/hand rails. Has not showered yet. The day of sx, she did have some dizziness and hasn't had issues past couple days. No issues w/toilet. Pt has been getting assistance w/ compression socks and shoes and pants. Has mostly been wearing skirts. Sister staying w/pt now. Has been doing glute and quad sets, APs, and heel slides. Treatment Goals Patient/Caregiver Goals Wants to be able to walk and hike and be able to bike and swim and garden. Be able to squat PT-OP-C Subjective Start: 12/02/23 17:12 Freq: Status: Active Protocol: Document 02/08/24 13:11 [facility] (Rec: 02/08/24 15:23 [facility] [id number]) OP-PT Subjective Patient Comments Patient Comments Its a challenge to clean the house because she wears out and inc pain in L groin. has been working on scar. Getting in exercises PT-OP-G Mobility & Gait Start: 12/02/23 17:12 Freq: Status: Active Protocol: Document 12/30/23 13:01 [facility] (Rec: 12/30/23 13:51 [facility] [id number]) OP Mobility Evaluation Bed Mobility Supine to and from Sit uses RLE to help up LLE Transfers Sit to Stand puts LLE out in front and uses UEs to FWW OP Gait Assessment Assistive Devices Assistive Device Front Wheeled Walker Gait Deviations General Gait Pattern Antalgic,Decreased Stride Length PT-OP-M Strength Start: 12/02/23 17:12 Freq: Status: Active Protocol: Document 12/30/23 13:01 [facility] (Rec: 12/30/23 13:51 [facility] [id number]) Hip Strength Hip Manual Muscle Testing Right Flexion (L2) 4- Good- External Rotation 3+ Fair+ Internal Rotation 4 Good Left Flexion (L2) 3- Fair- External Rotation 3+ Fair+ Internal Rotation 3+ Fair+ Comments ER/IR in neutral Knee Strength Knee Manual Muscle Testing Right Flexion (S2) 5 Normal Extension (L3) 5 Normal Left Flexion (S2) 4 Good Extension (L3) 3+ Fair+ Ankle/Foot Strength Ankle and Foot Manual Muscle Testing Right Dorsiflexion (L4) 5 Normal Plantarflexion (S1) 5 Normal Left Dorsiflexion (L4) 5 Normal Plantarflexion (S1) 5 Normal Comments seated testing PT-OP-Q Treatments Start: 12/02/23 17:12 Freq: Status: Active Protocol: Document 02/08/24 13:11 [facility] (Rec: 02/08/24 15:23 [facility] [id number]) Cardio Equipment Bicycle (Upright) Duration (Minutes) 5 Resistance 5 Seat Position 7 Therapeutic Exercises Sitting Exercises wt acceptance Sitting Exercise Name traction to femur for improved glute facil Side left Standing Exercises step down Side left Equipment Used 4 in w/rail Reps/Minutes 8 Mini squats Standing Exercise Name Mini squat Side bilateral Resistance AROM Equipment Used chair behind Reps/Minutes x15 Comments cues for slow controlled movement, step ups Standing Exercise Name Step up Side left Equipment Used 4 step Reps/Minutes 10 Comments leg stay on step-cues drive thru L foot and full knee ext HS curl Side bilateral Equipment Used rail Reps/Minutes 2 ea Comments stop d/t HS cramping Manual Therapy Treatment Consent Patient gave verbal consent for manual Yes treatment Soft Tissue Mobilization scar Body Location L Mobilization Type Myofascial Release Intensity/Depth Superficial HS Body Location L proximal Mobilization Type Rolling Intensity/Depth Moderate left adductor Mobilization Type Rolling,Strumming Intensity/Depth Moderate PT-OP-R Modalities Start: 12/02/23 17:12 Freq: Status: Active Protocol: Document 02/03/24 09:57 SW (Rec: 02/03/24 12:54 SW [id number]) Electric Stimulation Electric Stimulation Quad Body Location Quad Intensity 13 Target/Sweep Sweep High/Low Low Patient Position Hooklying Combined With Heat/Cold Cold Pack Comments Bolster under LE, izquierdo within reach, x10', electrodes surrounding quad muscle, not over surgical site, good tolerance PT-OP-T Assessment and Plan Start: 12/02/23 17:12 Freq: Status: Active Protocol: Document 02/08/24 13:11 [facility] (Rec: 02/08/24 15:23 [facility] [id number]) Physical Therapy Assessment Goals strength Short Term Goal (STG) Pt will be able to reciprocate up/down stairs w/rail 01/25/24: Did not attempt on progress note given pain and guarding behavior. STG Duration 02/18 Senior Applications Developer Goal (LTG) Pt will score at least 4+/5 on all BLE MMT to show improved strength and stability to allow greater ease w/activity. 01/25/24: Pt supine: B DF and great toe extension 5/5; right knee flexion and extension: 5 /5; right hip flexion and extension and abduction 4+/5; left knee: with attempted knee flexion testing, pt reports pain at hip and gives way at 3 +/5 and knee extension also causes hip pain with strength 4/5. MMT left hip deferred d/t pain. LTG Duration 03/20 balance Senior Applications Developer Goal (LTG) Pt will be able to do at least 10 sec SLS B. 01/25/24: Pt not ready to perform on progress note. LTG Duration 03/20/24 walking Short Term Goal (STG) Pt will be able to go for .5 mile walks w/pain no greater than 2/10. 01/25/24: Pt is walking with her SPC in right hand .5 mile with no more than 2/10 pain. 6MWT today with cane in right hand: 891 feet with mildly antalgic gait, slow jania and partial step-to pattern STG Duration Met, though using cane Senior Applications Developer Goal (LTG) Pt will report being able to return to hiking on uneven terrain for >2 miles w/o pain >2/10 with use of no AD or with use of hiking sticks. LTG Duration 03/20 LEFS Impairment 18/80 Short Term Goal (STG) Pt will improve LEFS score to at least 35/80 to show improved functional ability. 01/25/24: LEF score is 32/80. STG Duration Progressed Senior Applications Developer Goal (LTG) Pt will improve LEFS score to at least 55/80 to show improved functional ability. 01/25/24: LEF score is 32/80. LTG Duration 03/20 Assessment Summary Assessment Pt had improved hip flex from about 80 deg to 95 deg after manual. Cues needed with step ups. encouraged to drink miore wter to help w/cramps. Cont to need work on facilitation to LE for improved glute facilitationf or wt acceptance . Physical Therapy Plan Frequency and Duration Frequency of Treatment 1-2x/wk Duration of treatment (weeks) 8 Plan of Care Start Date 01/25/24 Plan of Care End Date 03/21/24 Next Visit Focus/Plan Next Note Type Treatment Note Next Visit Plan Avoid:hip abd & ext work on gradual progression of strength and balance Next session: followup on new HEP hip add, Limit hip flexion exercises due to pain, pt tolerated closed chain hip flexion with mini squats well this session. Upright bike, review HEP, progress per primary PT's plan , ongoing 6MWT to improve gait speed, consider teaching use of hiking sticks
--- NOTE | 2024-02-23 10:46 | PT.OTN ---
Current Diagnoses Pain in left hip (02/23/24) Physical Therapy Treatment Note PT-OP-A Visit Information Start: 12/02/23 17:12 Freq: Status: Active Protocol: Document 02/23/24 09:50 [facility] (Rec: 02/23/24 10:46 [facility] [id number]) Out-Patient Physical Therapy Visit Information Visit Information Visit Type Progress Note Visit Start Time 09:51 Visit Stop Time 10:32 Visit Number 11 Number of [employer] Visits 0 PT-OP-B Current Condition Start: 12/02/23 17:12 Freq: Status: Active Protocol: Document 12/30/23 13:01 [facility] (Rec: 12/30/23 13:51 [facility] [id number]) Current Condition History of Current Condition Onset Date 12/26 Current Complaints L ant DAVID History of Current Condition Pt had L anterior DAVID 12/26 without complications d/t OA. Pt has had B TKA and has had good recovery. Avoids getting down on knees and avoids running, and jumping. Pt reports got DAVID d/t gradual wearing down. Pt reports doing well with FWW Pt has SLH w/1 IVORY. Pt has tub shower w/hand rails. Has not showered yet. The day of sx, she did have some dizziness and hasn't had issues past couple days. No issues w/toilet. Pt has been getting assistance w/ compression socks and shoes and pants. Has mostly been wearing skirts. Sister staying w/pt now. Has been doing glute and quad sets, APs, and heel slides. Treatment Goals Patient/Caregiver Goals Wants to be able to walk and hike and be able to bike and swim and garden. Be able to squat PT-OP-C Subjective Start: 12/02/23 17:12 Freq: Status: Active Protocol: Document 02/23/24 09:50 [facility] (Rec: 02/23/24 10:46 [facility] [id number]) OP-PT Subjective Patient Comments Patient Comments Pt saw who lifted her restrictions. Xray done and no issues. She was sitting w/leg on stool and went and lifted leg again and pulled in groin on wednesday. Having to help lift leg again but is getting better. She is walking w/o cane except first couple walks . took walking sticks out and walked about 1.8 miles w/some standing rest breaks. PT-OP-G Mobility & Gait Start: 12/02/23 17:12 Freq: Status: Active Protocol: Document 12/30/23 13:01 [facility] (Rec: 12/30/23 13:51 [facility] [id number]) OP Mobility Evaluation Bed Mobility Supine to and from Sit uses RLE to help up LLE Transfers Sit to Stand puts LLE out in front and uses UEs to FWW OP Gait Assessment Assistive Devices Assistive Device Front Wheeled Walker Gait Deviations General Gait Pattern Antalgic,Decreased Stride Length PT-OP-M Strength Start: 12/02/23 17:12 Freq: Status: Active Protocol: Document 02/23/24 09:50 [facility] (Rec: 02/23/24 10:46 [facility] [id number]) Hip Strength Hip Manual Muscle Testing Right Flexion (L2) 4- Good- External Rotation 4 Good Internal Rotation 5 Normal Left Flexion (L2) 3 Fair Abduction 3+ Fair+ External Rotation 4- Good- Internal Rotation 4- Good- Comments pain in groin w/ hip flex and rot mild pain Knee Strength Knee Manual Muscle Testing Right Flexion (S2) 5 Normal Extension (L3) 5 Normal Left Flexion (S2) 4+ Good+ Extension (L3) 5 Normal Ankle/Foot Strength Ankle and Foot Manual Muscle Testing Right Dorsiflexion (L4) 5 Normal Plantarflexion (S1) 5 Normal Left Dorsiflexion (L4) 5 Normal Plantarflexion (S1) 5 Normal Comments seated testing PT-OP-Q Treatments Start: 12/02/23 17:12 Freq: Status: Active Protocol: Document 02/23/24 09:50 [facility] (Rec: 02/23/24 10:46 [facility] [id number]) Therapeutic Exercises Supine Exercises hip IR/ER Supine Exercise Name hooklying Side left Reps/Minutes 10 Comments comfortable range Standing Exercises hip abd Side bilateral Equipment Used counter Reps/Minutes 10 ea stretch Standing Exercise Name quad w/chair Side left Reps/Minutes 30 sec Other Exercises isometrics Other Exercise Name B LE MMT Gait Training Gait Activity stairs Comments up/down recip 6 in stairs w/ cues for wt shift into LLE w/ min rail use x6 gait Comments 1. in mirror x3 working on no lat lean 2. gait w/trekking poles dec 2 to 1 pole w/cues for set up and sequence Manual Therapy Treatment Consent Patient gave verbal consent for manual Yes treatment Soft Tissue Mobilization hip flexor Body Location L iliacus Comments w/heel slides quad Body Location L Comments plunger and cups w/heel slides scar Body Location L Mobilization Type Myofascial Release Intensity/Depth Superficial Comments w/heel slides PT-OP-R Modalities Start: 12/02/23 17:12 Freq: Status: Active Protocol: Document 02/03/24 09:57 (Rec: 02/03/24 12:54 [id number]) Electric Stimulation Electric Stimulation Quad Body Location Quad Intensity 13 Target/Sweep Sweep High/Low Low Patient Position Hooklying Combined With Heat/Cold Cold Pack Comments Bolster under LE, izquierdo within reach, x10', electrodes surrounding quad muscle, not over surgical site, good tolerance PT-OP-T Assessment and Plan Start: 12/02/23 17:12 Freq: Status: Active Protocol: Document 02/23/24 09:50 [facility] (Rec: 02/23/24 10:46 [facility] [id number]) Physical Therapy Assessment Goals strength Short Term Goal (STG) Pt will be able to reciprocate up/down stairs w/rail 01/25/24: Did not attempt on progress note given pain and guarding behavior. 02/22-able w/touching rail for balance STG Duration achieved 02/22 Alf Goal (LTG) Pt will score at least 4+/5 on all BLE MMT to show improved strength and stability to allow greater ease w/activity. 01/25/24: Pt supine: B DF and great toe extension 5/5; right knee flexion and extension: 5 /5; right hip flexion and extension and abduction 4+/5; left knee: with attempted knee flexion testing, pt reports pain at hip and gives way at 3 +/5 and knee extension also causes hip pain with strength 4/5. MMT left hip deferred d/t pain. 02/22-improving LTG Duration 2/6 balance Construction Plant Operator Goal (LTG) Pt will be able to do at least 10 sec SLS B. 01/25/24: Pt not ready to perform on progress note. 02/22-15 sec L, 30 sec R LTG Duration achieved 02/22 walking Short Term Goal (STG) Pt will be able to go for .5 mile walks w/pain no greater than 2/10. 01/25/24: Pt is walking with her SPC in right hand .5 mile with no more than 2/10 pain. 6MWT today with cane in right hand: 891 feet with mildly antalgic gait, slow jania and partial step-to pattern STG Duration achieved Alf Goal (LTG) Pt will report being able to return to hiking on uneven terrain for >2 miles w/o pain >2/10 with use of no AD or with use of hiking sticks. 02/22-hiking sticks on even terrain 1.8 miles LTG Duration 2 LEFS Impairment 18/80 Short Term Goal (STG) Pt will improve LEFS score to at least 35/80 to show improved functional ability. 01/25/24: LEF score is 32/80. STG Duration achieved 45/80 Alf Goal (LTG) Pt will improve LEFS score to at least 55/80 to show improved functional ability. 01/25/24: LEF score is 32/80. 02/22-80 LTG Duration 2 Assessment Summary Assessment Pt making good progress w/PT and advancing w/ROM and strength. She is now cleared by doctor for all ROM and has no restrictions. She is still having pain w/lifting legs and limited with mobility although progressing from cane use and inc walking distance. Cont PT for balance and strength and gait training Physical Therapy Plan Frequency and Duration Frequency of Treatment 1-2x/wk Duration of treatment (weeks) 8 Plan of Care Start Date 02/23/24 Plan of Care End Date 04/27/24 Therapeutic Interventions Therapeutic Interventions Balance Training,Gait Training ,Home Exercise Program,Joint Mobilizations,Manual Therapy, Neuromuscular Re-education, Patient/Caregiver Education, Self-Care/Home Management,Soft Tissue Mobilization,Taping, Therapeutic Activities, Therapeutic Exercises Modalities Cold Pack/Ice Massage,Electric Stimulation,Hot Packs, Ultrasound Next Visit Focus/Plan Next Note Type Treatment Note Next Visit Plan review exercises from this session, manual to scar and hip flexor to improve ability to hip flex and add work
--- NOTE | 2024-02-23 10:46 | PT.OPPOC ---
Physical, Occupational & Speech Therapy At [facility] Current Diagnoses Pain in left hip (02/23/24) Visit Care Team Role Provider Type Jose Patel DO Family Provider Physician Primary Care Provider Specialty: Family Practice Address: [address] [place] [address], [id number] Email: [email or web address] Aristides Raya MD Attending Provider Non-Staff Referring Provider Specialty: Orthopedic Surgery Address: [address] [place] [address] , [place], [address] Email: Plan Of Care PT-OP-B Current Condition Start: 12/02/23 17:12 Freq: Status: Active Protocol: Document 12/30/23 13:01 [facility] (Rec: 12/30/23 13:51 [facility] [id number]) Current Condition History of Current Condition Onset Date 12/26 Current Complaints L ant DAVID History of Current Condition Pt had L anterior DAVID 12/26 without complications d/t OA. Pt has had B TKA and has had good recovery. Avoids getting down on knees and avoids running, and jumping. Pt reports got DAVID d/t gradual wearing down. Pt reports doing well with FWW Pt has SLH w/1 IVORY. Pt has tub shower w/hand rails. Has not showered yet. The day of sx, she did have some dizziness and hasn't had issues past couple days. No issues w/toilet. Pt has been getting assistance w/ compression socks and shoes and pants. Has mostly been wearing skirts. Sister staying w/pt now. Has been doing glute and quad sets, APs, and heel slides. Treatment Goals Patient/Caregiver Goals Wants to be able to walk and hike and be able to bike and swim and garden. Be able to squat PT-OP-T Assessment and Plan Start: 12/02/23 17:12 Freq: Status: Active Protocol: Document 02/23/24 09:50 [facility] (Rec: 02/23/24 10:46 [facility] [id number]) Physical Therapy Assessment Goals strength Short Term Goal (STG) Pt will be able to reciprocate up/down stairs w/rail 01/25/24: Did not attempt on progress note given pain and guarding behavior. 02/22-able w/touching rail for balance STG Duration achieved 02/22 Senior Capital Markets Specialist Goal (LTG) Pt will score at least 4+/5 on all BLE MMT to show improved strength and stability to allow greater ease w/activity. 01/25/24: Pt supine: B DF and great toe extension 5/5; right knee flexion and extension: 5 /5; right hip flexion and extension and abduction 4+/5; left knee: with attempted knee flexion testing, pt reports pain at hip and gives way at 3 +/5 and knee extension also causes hip pain with strength 4/5. MMT left hip deferred d/t pain. 02/22-improving LTG Duration 04/27 balance Intermediate Goal (LTG) Pt will be able to do at least 10 sec SLS B. 01/25/24: Pt not ready to perform on progress note. 02/22-15 sec L, 30 sec R LTG Duration achieved 02/22 walking Short Term Goal (STG) Pt will be able to go for .5 mile walks w/pain no greater than 2/10. 01/25/24: Pt is walking with her SPC in right hand .5 mile with no more than 2/10 pain. 6MWT today with cane in right hand: 891 feet with mildly antalgic gait, slow jania and partial step-to pattern STG Duration achieved Intermediate Goal (LTG) Pt will report being able to return to hiking on uneven terrain for >2 miles w/o pain >2/10 with use of no AD or with use of hiking sticks. 02/22-hiking sticks on even terrain 1.8 miles LTG Duration 04/22 LEFS Impairment 18/80 Short Term Goal (STG) Pt will improve LEFS score to at least 35/80 to show improved functional ability. 01/25/24: LEF score is 32/80. STG Duration achieved Intermediate Goal (LTG) Pt will improve LEFS score to at least 55/80 to show improved functional ability. 01/25/24: LEF score is 32/80. 02/22- LTG Duration 2 Assessment Summary Assessment Pt making good progress w/PT and advancing w/ROM and strength. She is now cleared by doctor for all ROM and has no restrictions. She is still having pain w/lifting legs and limited with mobility although progressing from cane use and inc walking distance. Cont PT for balance and strength and gait training Physical Therapy Plan Frequency and Duration Frequency of Treatment 1-2x/wk Duration of treatment (weeks) 8 Plan of Care Start Date 02/23/24 Plan of Care End Date 04/27/24 Therapeutic Interventions Therapeutic Interventions Balance Training,Gait Training ,Home Exercise Program,Joint Mobilizations,Manual Therapy, Neuromuscular Re-education, Patient/Caregiver Education, Self-Care/Home Management,Soft Tissue Mobilization,Taping, Therapeutic Activities, Therapeutic Exercises Modalities Cold Pack/Ice Massage,Electric Stimulation,Hot Packs, Ultrasound Next Visit Focus/Plan Next Note Type Treatment Note Next Visit Plan review exercises from this session, manual to scar and hip flexor to improve ability to hip flex and add work Plan of Care Dates Plan of Care Start Date 02/23/24 Plan of Care End Date 04/27/24 Electronically Signed by: Betty Hart, PT 02/23/24 [id number] If you are in agreement with this Plan of Care, please return a signed and dated copy. I have reviewed this Plan of Care and certify that the skilled therapy services above are required to meet the patient?s needs. Physician Signature Date Printed Name and Credentials Clinical Instructor Signature Printed Name and Credentials
--- NOTE | 2024-03-02 16:31 | PT.OTN ---
Current Diagnoses Pain in left hip (03/02/24) Physical Therapy Treatment Note PT-OP-A Visit Information Start: 12/02/23 17:12 Freq: Status: Active Protocol: Document 03/02/24 13:48 (Rec: 03/02/24 16:15 [id number]) Out-Patient Physical Therapy Visit Information Visit Information Visit Type Treatment Note Visit Start Time 13:48 Visit Stop Time 14:28 Visit Number 12 Number of REEL CUTTER Visits 1 PT-OP-B Current Condition Start: 12/02/23 17:12 Freq: Status: Active Protocol: Document 12/30/23 13:01 [facility] (Rec: 12/30/23 13:51 [facility] [id number]) Current Condition History of Current Condition Onset Date 12/26 Current Complaints L ant DAVID History of Current Condition Pt had L anterior DAVID 12/26 without complications d/t OA. Pt has had B TKA and has had good recovery. Avoids getting down on knees and avoids running, and jumping. Pt reports got DAVID d/t gradual wearing down. Pt reports doing well with FWW Pt has SLH w/1 IVORY. Pt has tub shower w/hand rails. Has not showered yet. The day of sx, she did have some dizziness and hasn't had issues past couple days. No issues w/toilet. Pt has been getting assistance w/ compression socks and shoes and pants. Has mostly been wearing skirts. Sister staying w/pt now. Has been doing glute and quad sets, APs, and heel slides. Treatment Goals Patient/Caregiver Goals Wants to be able to walk and hike and be able to bike and swim and garden. Be able to squat PT-OP-C Subjective Start: 12/02/23 17:12 Freq: Status: Active Protocol: Document 03/02/24 13:48 (Rec: 03/02/24 14:33 [id number]) OP-PT Subjective Patient Comments Patient Comments Pt reports no setbacks, feels good to get back into a routine with exercises after holidays. Pain level close to 1/10, feels tightness in the muscles. PT-OP-G Mobility & Gait Start: 12/02/23 17:12 Freq: Status: Active Protocol: Document 12/30/23 13:01 [facility] (Rec: 12/30/23 13:51 [facility] [id number]) OP Mobility Evaluation Bed Mobility Supine to and from Sit uses RLE to help up LLE Transfers Sit to Stand puts LLE out in front and uses UEs to FWW OP Gait Assessment Assistive Devices Assistive Device Front Wheeled Walker Gait Deviations General Gait Pattern Antalgic,Decreased Stride Length PT-OP-M Strength Start: 12/02/23 17:12 Freq: Status: Active Protocol: Document 02/23/24 09:50 [facility] (Rec: 02/23/24 10:46 [facility] [id number]) Hip Strength Hip Manual Muscle Testing Right Flexion (L2) 4- Good- External Rotation 4 Good Internal Rotation 5 Normal Left Flexion (L2) 3 Fair Abduction 3+ Fair+ External Rotation 4- Good- Internal Rotation 4- Good- Comments pain in groin w/ hip flex and rot mild pain Knee Strength Knee Manual Muscle Testing Right Flexion (S2) 5 Normal Extension (L3) 5 Normal Left Flexion (S2) 4+ Good+ Extension (L3) 5 Normal Ankle/Foot Strength Ankle and Foot Manual Muscle Testing Right Dorsiflexion (L4) 5 Normal Plantarflexion (S1) 5 Normal Left Dorsiflexion (L4) 5 Normal Plantarflexion (S1) 5 Normal Comments seated testing PT-OP-Q Treatments Start: 12/02/23 17:12 Freq: Status: Active Protocol: Document 03/02/24 13:48 [facility] (Rec: 03/02/24 14:33 SW [id number]) Cardio Equipment Bicycle (Upright) Duration (Minutes) 5 Resistance 5 Seat Position 7 Therapeutic Exercises Supine Exercises hip IR/ER Supine Exercise Name hooklying Side left Reps/Minutes 10 Comments comfortable range Standing Exercises hip abd Standing Exercise Name Reviewed for pt carryover Side bilateral Equipment Used counter Reps/Minutes 10 ea stretch Standing Exercise Name quad w/chair Side left Reps/Minutes 30 sec Comments feels good stretch Gait Training Gait Activity stairs Comments up/down recip 6 in stairs w/ cues for wt shift into LLE w/ min rail Lobby stairs 2x 13 ascend/ 13 descend Manual Therapy Treatment Consent Patient gave verbal consent for manual Yes treatment Soft Tissue Mobilization quad Body Location L Comments plunger and cups w/heel slides scar Body Location L Mobilization Type Myofascial Release Intensity/Depth Superficial Comments w/heel slides ITB Body Location L Comments cups left adductor Body Location L Comments cups PT-OP-R Modalities Start: 12/02/23 17:12 Freq: Status: Active Protocol: Document 02/03/24 09:57 [facility] (Rec: 02/03/24 12:54 SW [id number]) Electric Stimulation Electric Stimulation Quad Body Location Quad Intensity 13 Target/Sweep Sweep High/Low Low Patient Position Hooklying Combined With Heat/Cold Cold Pack Comments Bolster under LE, izquierdo within reach, x10', electrodes surrounding quad muscle, not over surgical site, good tolerance PT-OP-T Assessment and Plan Start: 12/02/23 17:12 Freq: Status: Active Protocol: Document 03/02/24 13:48 [facility] (Rec: 03/02/24 16:28 [id number]) Physical Therapy Assessment Goals strength Short Term Goal (STG) Pt will be able to reciprocate up/down stairs w/rail 01/25/24: Did not attempt on progress note given pain and guarding behavior. 02/22-able w/touching rail for balance STG Duration achieved 02/22 Skilled Nursing Goal (LTG) Pt will score at least 4+/5 on all BLE MMT to show improved strength and stability to allow greater ease w/activity. 01/25/24: Pt supine: B DF and great toe extension 5/5; right knee flexion and extension: 5 /5; right hip flexion and extension and abduction 4+/5; left knee: with attempted knee flexion testing, pt reports pain at hip and gives way at 3 +/5 and knee extension also causes hip pain with strength 4/5. MMT left hip deferred d/t pain. 02/22-improving LTG Duration 2/6 balance Biological Engineer Goal (LTG) Pt will be able to do at least 10 sec SLS B. 01/25/24: Pt not ready to perform on progress note. 02/22-15 sec L, 30 sec R LTG Duration achieved 02/22 walking Short Term Goal (STG) Pt will be able to go for .5 mile walks w/pain no greater than 2/10. 01/25/24: Pt is walking with her SPC in right hand .5 mile with no more than 2/10 pain. 6MWT today with cane in right hand: 891 feet with mildly antalgic gait, slow jania and partial step-to pattern STG Duration achieved Biological Engineer Goal (LTG) Pt will report being able to return to hiking on uneven terrain for >2 miles w/o pain >2/10 with use of no AD or with use of hiking sticks. 02/22-hiking sticks on even terrain 1.8 miles LTG Duration 2 LEFS Impairment 18/80 Short Term Goal (STG) Pt will improve LEFS score to at least 35/80 to show improved functional ability. 01/25/24: LEF score is 32/80. STG Duration achieved 45/80 Skilled Nursing Goal (LTG) Pt will improve LEFS score to at least 55/80 to show improved functional ability. 01/25/24: LEF score is 32/80. 02/22- LTG Duration 04/27 Assessment Summary Assessment Pt reports pain level has been around a 1/10, with muscle soreness in adductor/quad. Continued instrument assisted STM, MWM, pt tolerated well, positive feedback post last session, worked into adductor muscle and ITB today as well as quad. Reviewed new exercises initiated last session for pt carryover, pt is tolerating well. Improved carryover of HEP since the end of the . Physical Therapy Plan Frequency and Duration Frequency of Treatment 1-2x/wk Duration of treatment (weeks) 8 Plan of Care Start Date 02/23/24 Plan of Care End Date 04/27/24 Therapeutic Interventions Therapeutic Interventions Balance Training,Gait Training ,Home Exercise Program,Joint Mobilizations,Manual Therapy, Neuromuscular Re-education, Patient/Caregiver Education, Self-Care/Home Management,Soft Tissue Mobilization,Taping, Therapeutic Activities, Therapeutic Exercises Modalities Cold Pack/Ice Massage,Electric Stimulation,Hot Packs, Ultrasound Next Visit Focus/Plan Next Note Type Treatment Note Next Visit Plan Progress hip abd strength as able, Continue manual to scar and hip flexor to improve ability to hip flex and add work
--- NOTE | 2024-03-07 16:35 | PT.OTN ---
Current Diagnoses Pain in left hip (03/07/24) Physical Therapy Treatment Note PT-OP-A Visit Information Start: 12/02/23 17:12 Freq: Status: Active Protocol: Document 03/07/24 15:02 AB (Rec: 03/07/24 16:35 AB [id number]) Out-Patient Physical Therapy Visit Information Visit Information Visit Type Treatment Note Visit Note Access Code: [email or web address] Visit Start Time 14:35 Visit Stop Time 15:19 Visit Number 13 Number of MASH PREPARATORY OPERATOR Visits 2 PT-OP-B Current Condition Start: 12/02/23 17:12 Freq: Status: Active Protocol: Document 12/30/23 13:01 [facility] (Rec: 12/30/23 13:51 [facility] [id number]) Current Condition History of Current Condition Onset Date 12/26 Current Complaints L ant DAVID History of Current Condition Pt had L anterior DAVID 12/26 without complications d/t OA. Pt has had B TKA and has had good recovery. Avoids getting down on knees and avoids running, and jumping. Pt reports got DAVID d/t gradual wearing down. Pt reports doing well with FWW Pt has SLH w/1 IVORY. Pt has tub shower w/hand rails. Has not showered yet. The day of sx, she did have some dizziness and hasn't had issues past couple days. No issues w/toilet. Pt has been getting assistance w/ compression socks and shoes and pants. Has mostly been wearing skirts. Sister staying w/pt now. Has been doing glute and quad sets, APs, and heel slides. Treatment Goals Patient/Caregiver Goals Wants to be able to walk and hike and be able to bike and swim and garden. Be able to squat PT-OP-C Subjective Start: 12/02/23 17:12 Freq: Status: Active Protocol: Document 03/07/24 15:02 AB (Rec: 03/07/24 16:35 AB [id number]) OP-PT Subjective Patient Comments Patient Comments Patient reports she is the same continues to have increased pain with shaving anterior left hip. Patient reports increased stiffness after sitting and when first gets up in am. PT-OP-G Mobility & Gait Start: 12/02/23 17:12 Freq: Status: Active Protocol: Document 12/30/23 13:01 [facility] (Rec: 12/30/23 13:51 [facility] [id number]) OP Mobility Evaluation Bed Mobility Supine to and from Sit uses RLE to help up LLE Transfers Sit to Stand puts LLE out in front and uses UEs to FWW OP Gait Assessment Assistive Devices Assistive Device Front Wheeled Walker Gait Deviations General Gait Pattern Antalgic,Decreased Stride Length PT-OP-M Strength Start: 12/02/23 17:12 Freq: Status: Active Protocol: Document 02/23/24 09:50 [facility] (Rec: 02/23/24 10:46 [facility] [id number]) Hip Strength Hip Manual Muscle Testing Right Flexion (L2) 4- Good- External Rotation 4 Good Internal Rotation 5 Normal Left Flexion (L2) 3 Fair Abduction 3+ Fair+ External Rotation 4- Good- Internal Rotation 4- Good- Comments pain in groin w/ hip flex and rot mild pain Knee Strength Knee Manual Muscle Testing Right Flexion (S2) 5 Normal Extension (L3) 5 Normal Left Flexion (S2) 4+ Good+ Extension (L3) 5 Normal Ankle/Foot Strength Ankle and Foot Manual Muscle Testing Right Dorsiflexion (L4) 5 Normal Plantarflexion (S1) 5 Normal Left Dorsiflexion (L4) 5 Normal Plantarflexion (S1) 5 Normal Comments seated testing PT-OP-Q Treatments Start: 12/02/23 17:12 Freq: Status: Active Protocol: Document 03/07/24 15:02 [facility] (Rec: 03/07/24 16:35 AB [id number]) Therapeutic Exercises Supine Exercises knee to chest Side left Equipment Used towel roll at groin Reps/Minutes 60 sec Comments verbal cues Piriformis stretch Side bilateral Reps/Minutes 60 sec X 1 Comments verbal and tactile cues Bong stretch Side left Reps/Minutes 60 sec X 2 Comments assist to position LE Sidelying Exercises hip abduction Sidelying Exercise Name HEP Side left Reps/Minutes X10 X2 Comments verbal and tactile cues for set up Sitting Exercises seated hip abduction with band Sitting Exercise Name HEP Side bilateral Resistance level2 band Reps/Minutes one min X 1 then X10 without hold Manual Therapy Treatment Soft Tissue Mobilization hip flexor Body Location L iliacus Mobilization Type Cross-Friction,Rolling Intensity/Depth Moderate Body Position Hooklying glutes Body Location r Mobilization Type Cross-Friction,Rolling, Sustained Pressure Intensity/Depth Moderate Body Position Sidelying Joint Mobilizations left hip Direction inf Body Position II Reps/Duration X10 X 2 Manual Techniques left AI right PI and pubic shotgun Reps/Duration sec X 6 each PT-OP-R Modalities Start: 12/02/23 17:12 Freq: Status: Active Protocol: Document 02/03/24 09:57 SW (Rec: 02/03/24 12:54 SW [id number]) Electric Stimulation Electric Stimulation Quad Body Location Quad Intensity 13 Target/Sweep Sweep High/Low Low Patient Position Hooklying Combined With Heat/Cold Cold Pack Comments Bolster under LE, izquierdo within reach, x10', electrodes surrounding quad muscle, not over surgical site, good tolerance PT-OP-T Assessment and Plan Start: 12/02/23 17:12 Freq: Status: Active Protocol: Document 03/07/24 15:02 AB (Rec: 03/07/24 16:35 AB [id number]) Physical Therapy Assessment Assessment Summary Assessment Improved mary to sidelying hip abduction this session. Ant groin discomfort with AROM hip flexion end range persists, but reports less discomfort post manual. Physical Therapy Plan Frequency and Duration Frequency of Treatment 1-2x/wk Duration of treatment (weeks) 8 Plan of Care Start Date 02/23/24 Plan of Care End Date 04/27/24 Next Visit Focus/Plan Next Note Type Treatment Note Next Visit Plan Progress hip abd strength as able, Continue manual to scar and hip flexor to improve ability to hip flex and add work. Assess mary to joint mobs and towel roll at groin during hip flexion stretch previous session.
--- NOTE | 2024-03-14 09:52 | PT.OTN ---
Current Diagnoses Pain in left hip (03/14/24) Physical Therapy Treatment Note PT-OP-A Visit Information Start: 12/02/23 17:12 Freq: Status: Active Protocol: Document 03/14/24 09:06 [facility] (Rec: 03/14/24 09:52 [facility] [id number]) Out-Patient Physical Therapy Visit Information Visit Information Visit Type Treatment Note Visit Start Time 09:05 Visit Stop Time 09:45 Visit Number 14 Number of PEDIATRIC RN Visits 0 PT-OP-B Current Condition Start: 12/02/23 17:12 Freq: Status: Active Protocol: Document 12/30/23 13:01 [facility] (Rec: 12/30/23 13:51 [facility] [id number]) Current Condition History of Current Condition Onset Date 12/26 Current Complaints L ant DAVID History of Current Condition Pt had L anterior DAVID 12/26 without complications d/t OA. Pt has had B TKA and has had good recovery. Avoids getting down on knees and avoids running, and jumping. Pt reports got DAVID d/t gradual wearing down. Pt reports doing well with FWW Pt has SLH w/1 IVORY. Pt has tub shower w/hand rails. Has not showered yet. The day of sx, she did have some dizziness and hasn't had issues past couple days. No issues w/toilet. Pt has been getting assistance w/ compression socks and shoes and pants. Has mostly been wearing skirts. Sister staying w/pt now. Has been doing glute and quad sets, APs, and heel slides. Treatment Goals Patient/Caregiver Goals Wants to be able to walk and hike and be able to bike and swim and garden. Be able to squat PT-OP-C Subjective Start: 12/02/23 17:12 Freq: Status: Active Protocol: Document 03/14/24 09:06 [facility] (Rec: 03/14/24 09:52 [facility] [id number]) OP-PT Subjective Patient Comments Patient Comments pt brought HEP to go over PT-OP-G Mobility & Gait Start: 12/02/23 17:12 Freq: Status: Active Protocol: Document 12/30/23 13:01 [facility] (Rec: 12/30/23 13:51 [facility] [id number]) OP Mobility Evaluation Bed Mobility Supine to and from Sit uses RLE to help up LLE Transfers Sit to Stand puts LLE out in front and uses UEs to FWW OP Gait Assessment Assistive Devices Assistive Device Front Wheeled Walker Gait Deviations General Gait Pattern Antalgic,Decreased Stride Length PT-OP-M Strength Start: 12/02/23 17:12 Freq: Status: Active Protocol: Document 02/23/24 09:50 [facility] (Rec: 02/23/24 10:46 [facility] [id number]) Hip Strength Hip Manual Muscle Testing Right Flexion (L2) 4- Good- External Rotation 4 Good Internal Rotation 5 Normal Left Flexion (L2) 3 Fair Abduction 3+ Fair+ External Rotation 4- Good- Internal Rotation 4- Good- Comments pain in groin w/ hip flex and rot mild pain Knee Strength Knee Manual Muscle Testing Right Flexion (S2) 5 Normal Extension (L3) 5 Normal Left Flexion (S2) 4+ Good+ Extension (L3) 5 Normal Ankle/Foot Strength Ankle and Foot Manual Muscle Testing Right Dorsiflexion (L4) 5 Normal Plantarflexion (S1) 5 Normal Left Dorsiflexion (L4) 5 Normal Plantarflexion (S1) 5 Normal Comments seated testing PT-OP-Q Treatments Start: 12/02/23 17:12 Freq: Status: Active Protocol: Document 03/14/24 09:06 [facility] (Rec: 03/14/24 09:52 [facility] [id number]) Therapeutic Exercises Supine Exercises mini bridge Supine Exercise Name 1. DL 2. SL Side bilateral Reps/Minutes 1. 5 2. 5 B Comments full range to netural hips Standing Exercises hip add Side left Equipment Used Lvl 1 Reps/Minutes 15 clamshell Standing Exercise Name foot on wall Side bilateral Resistance L1 Reps/Minutes 15 hip abd Standing Exercise Name sidesteps Side bilateral Resistance L1 at ankles Reps/Minutes 15 ft Comments cues slow and controlled Mini squats Standing Exercise Name Mini squat Side bilateral Resistance L2 at knees Equipment Used chair behind Reps/Minutes x15 Comments cues for slow controlled movement, heel raises Standing Exercise Name SL Side bilateral Equipment Used rail for balance Reps/Minutes 10 Manual Therapy Treatment Consent Patient gave verbal consent for manual Yes treatment Soft Tissue Mobilization hip flexor Body Location L iliacus &TFL Mobilization Type Cross-Friction,Rolling Intensity/Depth Moderate Body Position Hooklying quad Body Location L Comments plunger and cups w/heel slides scar Body Location L Mobilization Type Myofascial Release Intensity/Depth Superficial Comments w/heel slides MFR and plunger PT-OP-R Modalities Start: 12/02/23 17:12 Freq: Status: Active Protocol: Document 02/03/24 09:57 (Rec: 02/03/24 12:54 [facility] [id number]) Electric Stimulation Electric Stimulation Quad Body Location Quad Intensity 13 Target/Sweep Sweep High/Low Low Patient Position Hooklying Combined With Heat/Cold Cold Pack Comments Bolster under LE, izquierdo within reach, x10', electrodes surrounding quad muscle, not over surgical site, good tolerance PT-OP-T Assessment and Plan Start: 12/02/23 17:12 Freq: Status: Active Protocol: Document 03/14/24 09:06 [facility] (Rec: 03/14/24 09:52 [facility] [id number]) Physical Therapy Assessment Goals strength Short Term Goal (STG) Pt will be able to reciprocate up/down stairs w/rail 01/25/24: Did not attempt on progress note given pain and guarding behavior. 02/22-able w/touching rail for balance STG Duration achieved 02/22 Saddle Stitch Operator Goal (LTG) Pt will score at least 4+/5 on all BLE MMT to show improved strength and stability to allow greater ease w/activity. 01/25/24: Pt supine: B DF and great toe extension 5/5; right knee flexion and extension: 5 /5; right hip flexion and extension and abduction 4+/5; left knee: with attempted knee flexion testing, pt reports pain at hip and gives way at 3 +/5 and knee extension also causes hip pain with strength 4/5. MMT left hip deferred d/t pain. 02/22-improving LTG Duration 2/6 balance Saddle Stitch Operator Goal (LTG) Pt will be able to do at least 10 sec SLS B. 01/25/24: Pt not ready to perform on progress note. 02/22-15 sec L, 30 sec R LTG Duration achieved 02/22 walking Short Term Goal (STG) Pt will be able to go for .5 mile walks w/pain no greater than 2/10. 01/25/24: Pt is walking with her SPC in right hand .5 mile with no more than 2/10 pain. 6MWT today with cane in right hand: 891 feet with mildly antalgic gait, slow jania and partial step-to pattern STG Duration achieved Mcfp Goal (LTG) Pt will report being able to return to hiking on uneven terrain for >2 miles w/o pain >2/10 with use of no AD or with use of hiking sticks. 02/22-hiking sticks on even terrain 1.8 miles LTG Duration 2 LEFS Impairment 18/80 Short Term Goal (STG) Pt will improve LEFS score to at least 35/80 to show improved functional ability. 01/25/24: LEF score is 32/80. STG Duration achieved 45/80 Mcfp Goal (LTG) Pt will improve LEFS score to at least 55/80 to show improved functional ability. 01/25/24: LEF score is 32/80. 02/22- LTG Duration 2 Assessment Summary Assessment Pt did well with progression of exercises today. Did well with manual to improve scar and flex ability w/heel slide Physical Therapy Plan Frequency and Duration Frequency of Treatment 1-2x/wk Duration of treatment (weeks) 8 Plan of Care Start Date 02/23/24 Plan of Care End Date 04/27/24 Next Visit Focus/Plan Next Note Type Treatment Note Next Visit Plan review new HEP from last session ; manual to improve hip mobility w/less pain; cont to improve gait
--- NOTE | 2024-03-21 10:13 | PT.OTN ---
Current Diagnoses Pain in left hip (03/21/24) Physical Therapy Treatment Note PT-OP-A Visit Information Start: 12/02/23 17:12 Freq: Status: Active Protocol: Document 03/21/24 08:05 [facility] (Rec: 03/21/24 10:13 [facility] [id number]) Out-Patient Physical Therapy Visit Information Visit Information Visit Type Treatment Note Visit Note Access Code: [email or web address] Visit Start Time 09:04 Visit Stop Time 09:48 Visit Number 25 Number of PATIENT SERVICE REPRESENTATIVE Visits 1 PT-OP-B Current Condition Start: 12/02/23 17:12 Freq: Status: Active Protocol: Document 12/30/23 13:01 [facility] (Rec: 12/30/23 13:51 [facility] [id number]) Current Condition History of Current Condition Onset Date 12/26 Current Complaints L ant DAVID History of Current Condition Pt had L anterior DAVID 12/26 without complications d/t OA. Pt has had B TKA and has had good recovery. Avoids getting down on knees and avoids running, and jumping. Pt reports got DAVID d/t gradual wearing down. Pt reports doing well with FWW Pt has SLH w/1 IVORY. Pt has tub shower w/hand rails. Has not showered yet. The day of sx, she did have some dizziness and hasn't had issues past couple days. No issues w/toilet. Pt has been getting assistance w/ compression socks and shoes and pants. Has mostly been wearing skirts. Sister staying w/pt now. Has been doing glute and quad sets, APs, and heel slides. Treatment Goals Patient/Caregiver Goals Wants to be able to walk and hike and be able to bike and swim and garden. Be able to squat PT-OP-C Subjective Start: 12/02/23 17:12 Freq: Status: Active Protocol: Document 03/21/24 08:05 [facility] (Rec: 03/21/24 10:13 [facility] [id number]) OP-PT Subjective Patient Comments Patient Comments Patient rates left ankle pain TC area and medially 5/10 pain ambulating into session, comments no known cause for ankle pain. Patient stands with left LE ER at hip, decreased control at arch, ipsilateral trunk sidebend R>L during ambulation. Likely TC joint stiffness impacting gait pattern and mobility/Hip positioning during gait. PT-OP-G Mobility & Gait Start: 12/02/23 17:12 Freq: Status: Active Protocol: Document 12/30/23 13:01 [facility] (Rec: 12/30/23 13:51 [facility] [id number]) OP Mobility Evaluation Bed Mobility Supine to and from Sit uses RLE to help up LLE Transfers Sit to Stand puts LLE out in front and uses UEs to FWW OP Gait Assessment Assistive Devices Assistive Device Front Wheeled Walker Gait Deviations General Gait Pattern Antalgic,Decreased Stride Length PT-OP-M Strength Start: 12/02/23 17:12 Freq: Status: Active Protocol: Document 02/23/24 09:50 [facility] (Rec: 02/23/24 10:46 [facility] [id number]) Hip Strength Hip Manual Muscle Testing Right Flexion (L2) 4- Good- External Rotation 4 Good Internal Rotation 5 Normal Left Flexion (L2) 3 Fair Abduction 3+ Fair+ External Rotation 4- Good- Internal Rotation 4- Good- Comments pain in groin w/ hip flex and rot mild pain Knee Strength Knee Manual Muscle Testing Right Flexion (S2) 5 Normal Extension (L3) 5 Normal Left Flexion (S2) 4+ Good+ Extension (L3) 5 Normal Ankle/Foot Strength Ankle and Foot Manual Muscle Testing Right Dorsiflexion (L4) 5 Normal Plantarflexion (S1) 5 Normal Left Dorsiflexion (L4) 5 Normal Plantarflexion (S1) 5 Normal Comments seated testing PT-OP-Q Treatments Start: 12/02/23 17:12 Freq: Status: Active Protocol: Document 03/21/24 08:05 [facility] (Rec: 03/21/24 10:13 [facility] [id number]) Therapeutic Exercises Supine Exercises Piriformis stretch Side bilateral Reps/Minutes 60 sec X 1 Comments verbal and tactile cues Bong stretch Side left Reps/Minutes 60 sec X 1 Comments verbal cues for LE positioning Standing Exercises squat with band Side bilateral Resistance level 2 band Reps/Minutes X15 Comments verbal cues to keep tension on band calf stretches Standing Exercise Name Soleus and gastroc Side bilateral Equipment Used HEP Reps/Minutes 60 sec each at wall, on stairs 60 sec each Manual Therapy Treatment Consent Patient gave verbal consent for manual Yes treatment Soft Tissue Mobilization hip flexor Body Location B iliacus Mobilization Type Cross-Friction,Rolling Intensity/Depth Moderate Body Position Hooklying Comments Pre MET glutes Body Location bilateral Mobilization Type Cross-Friction,Rolling, Sustained Pressure Intensity/Depth Moderate Body Position Sidelying Comments pre MET Joint Mobilizations Mulligan with movement TC mob Joint left TC joint Direction AP Grade IV Reps/Duration X10 X 3 Manual Techniques left AI right PI and pubic shotgun Type Right AI left PI this session Reps/Duration sec X 6 each PT-OP-R Modalities Start: 12/02/23 17:12 Freq: Status: Active Protocol: Document 02/03/24 09:57 [facility] (Rec: 02/03/24 12:54 [facility] [id number]) Electric Stimulation Electric Stimulation Quad Body Location Quad Intensity 13 Target/Sweep Sweep High/Low Low Patient Position Hooklying Combined With Heat/Cold Cold Pack Comments Bolster under LE, izquierdo within reach, x10', electrodes surrounding quad muscle, not over surgical site, good tolerance PT-OP-T Assessment and Plan Start: 12/02/23 17:12 Freq: Status: Active Protocol: Document 03/21/24 08:05 [facility] (Rec: 03/21/24 10:13 [facility] [id number]) Physical Therapy Assessment Goals strength Short Term Goal (STG) Pt will be able to reciprocate up/down stairs w/rail 01/25/24: Did not attempt on progress note given pain and guarding behavior. 02/22-able w/touching rail for balance STG Duration achieved 02/22 Prison Goal (LTG) Pt will score at least 4+/5 on all BLE MMT to show improved strength and stability to allow greater ease w/activity. 01/25/24: Pt supine: B DF and great toe extension 5/5; right knee flexion and extension: 5 /5; right hip flexion and extension and abduction 4+/5; left knee: with attempted knee flexion testing, pt reports pain at hip and gives way at 3 +/5 and knee extension also causes hip pain with strength 4/5. MMT left hip deferred d/t pain. 02/22-improving LTG Duration 2/6 balance Prison Goal (LTG) Pt will be able to do at least 10 sec SLS B. 01/25/24: Pt not ready to perform on progress note. 02/22-15 sec L, 30 sec R LTG Duration achieved 02/22 walking Short Term Goal (STG) Pt will be able to go for .5 mile walks w/pain no greater than 2/10. 01/25/24: Pt is walking with her SPC in right hand .5 mile with no more than 2/10 pain. 6MWT today with cane in right hand: 891 feet with mildly antalgic gait, slow jania and partial step-to pattern STG Duration achieved Welding Machine Operator [employer] Goal (LTG) Pt will report being able to return to hiking on uneven terrain for >2 miles w/o pain >2/10 with use of no AD or with use of hiking sticks. 02/22-hiking sticks on even terrain 1.8 miles LTG Duration 2 LEFS Impairment 18/80 Short Term Goal (STG) Pt will improve LEFS score to at least 35/80 to show improved functional ability. 01/25/24: LEF score is 32/80. STG Duration achieved 45/80 Prison Goal (LTG) Pt will improve LEFS score to at least 55/80 to show improved functional ability. 01/25/24: LEF score is 32/80. 02/22-45/80 LTG Duration 2/ Assessment Summary Assessment Ankle stiffness impacting gait pattern and hip muscles stiffness as seen by Sanjay MCKEON positioned in ER at hip in standing. Mone rates left ankle pain 1/10 end of session , and reports having no pain left hip. Physical Therapy Plan Frequency and Duration Frequency of Treatment 1-2x/wk Duration of treatment (weeks) 8 Plan of Care Start Date 02/23/24 Plan of Care End Date 04/27/24 Next Visit Focus/Plan Next Note Type Treatment Note Next Visit Plan continue review new HEP from last session; manual to improve hip mobility w/less pain; cont to improve gait
--- NOTE | 2024-03-30 13:27 | PT.OTN ---
Current Diagnoses Pain in left hip (03/30/24) Physical Therapy Treatment Note PT-OP-A Visit Information Start: 12/02/23 17:12 Freq: Status: Active Protocol: Document 03/30/24 08:11 [facility] (Rec: 03/30/24 13:26 [facility] [id number]) Out-Patient Physical Therapy Visit Information Visit Information Visit Type Treatment Note Visit Note Access Code: [email or web address] Visit Start Time 09:05 Visit Stop Time 09:48 Visit Number 26 Number of ELECTRIC INSTALLER Visits 2 PT-OP-B Current Condition Start: 12/02/23 17:12 Freq: Status: Active Protocol: Document 12/30/23 13:01 [facility] (Rec: 12/30/23 13:51 [facility] [id number]) Current Condition History of Current Condition Onset Date 12/26 Current Complaints L ant DAVID History of Current Condition Pt had L anterior DAVID 12/26 without complications d/t OA. Pt has had B TKA and has had good recovery. Avoids getting down on knees and avoids running, and jumping. Pt reports got DAVID d/t gradual wearing down. Pt reports doing well with FWW Pt has SLH w/1 IVORY. Pt has tub shower w/hand rails. Has not showered yet. The day of sx, she did have some dizziness and hasn't had issues past couple days. No issues w/toilet. Pt has been getting assistance w/ compression socks and shoes and pants. Has mostly been wearing skirts. Sister staying w/pt now. Has been doing glute and quad sets, APs, and heel slides. Treatment Goals Patient/Caregiver Goals Wants to be able to walk and hike and be able to bike and swim and garden. Be able to squat PT-OP-C Subjective Start: 12/02/23 17:12 Freq: Status: Active Protocol: Document 03/30/24 08:11 [facility] (Rec: 03/30/24 13:26 [facility] [id number]) OP-PT Subjective Patient Comments Patient Comments Mone reports she drove up to [facility] for acupuncture, and took a long walk with Elder estimates at a mile and half, and has had increased pain groin and quad area. Mone into session with walking stick. Mone rates pain left hip 3-4/ 10 start of session, with decreased mary to putting all weight through left UE, ( inc discomfort muscle vs bone) Patient reports since perform her surgery bilateral feet were numb,L>R, referred to podiatry who advised nerve may be pinched. PT-OP-G Mobility & Gait Start: 12/02/23 17:12 Freq: Status: Active Protocol: Document 12/30/23 13:01 [facility] (Rec: 12/30/23 13:51 [facility] [id number]) OP Mobility Evaluation Bed Mobility Supine to and from Sit uses RLE to help up LLE Transfers Sit to Stand puts LLE out in front and uses UEs to FWW OP Gait Assessment Assistive Devices Assistive Device Front Wheeled Walker Gait Deviations General Gait Pattern Antalgic,Decreased Stride Length PT-OP-M Strength Start: 12/02/23 17:12 Freq: Status: Active Protocol: Document 02/23/24 09:50 [facility] (Rec: 02/23/24 10:46 [facility] [id number]) Hip Strength Hip Manual Muscle Testing Right Flexion (L2) 4- Good- External Rotation 4 Good Internal Rotation 5 Normal Left Flexion (L2) 3 Fair Abduction 3+ Fair+ External Rotation 4- Good- Internal Rotation 4- Good- Comments pain in groin w/ hip flex and rot mild pain Knee Strength Knee Manual Muscle Testing Right Flexion (S2) 5 Normal Extension (L3) 5 Normal Left Flexion (S2) 4+ Good+ Extension (L3) 5 Normal Ankle/Foot Strength Ankle and Foot Manual Muscle Testing Right Dorsiflexion (L4) 5 Normal Plantarflexion (S1) 5 Normal Left Dorsiflexion (L4) 5 Normal Plantarflexion (S1) 5 Normal Comments seated testing PT-OP-Q Treatments Start: 12/02/23 17:12 Freq: Status: Active Protocol: Document 03/30/24 08:11 [facility] (Rec: 03/30/24 13:26 AB [id number]) Gym Equipment Shuttle Recovery Bilateral Squats Resistance 50# (navy) Reps/Time 15 Therapeutic Exercises Standing Exercises glute med isometric Standing Exercise Name standing at wall Side bilateral Reps/Minutes 1 for one min each LE Comments verbal and visual cues calf stretches Standing Exercise Name Soleus and gastroc Side bilateral Equipment Used HEP Reps/Minutes on stairs X 2 each heel raises Standing Exercise Name bilateral on step Side bilateral Reps/Minutes X10 with knees bent X 10 with knees straight Comments verbal cues Manual Therapy Treatment Soft Tissue Mobilization hip flexor Body Location left Mobilization Type Cross-Friction,Rolling Intensity/Depth Moderate Body Position Hooklying Comments to superficialPre MET quad Body Location L Mobilization Type Cross-Friction,Rolling, Sustained Pressure Intensity/Depth Moderate Body Position Hooklying glutes Body Location left Mobilization Type Cross-Friction,Rolling, Sustained Pressure Intensity/Depth Moderate Body Position Sidelying Comments pre MET Manual Techniques left AI right PI and pubic shotgun Type Right AI left PI this session Reps/Duration sec X 6 each PT-OP-R Modalities Start: 12/02/23 17:12 Freq: Status: Active Protocol: Document 02/03/24 09:57 [facility] (Rec: 02/03/24 12:54 SW [id number]) Electric Stimulation Electric Stimulation Quad Body Location Quad Intensity 13 Target/Sweep Sweep High/Low Low Patient Position Hooklying Combined With Heat/Cold Cold Pack Comments Bolster under LE, izquierdo within reach, x10', electrodes surrounding quad muscle, not over surgical site, good tolerance PT-OP-T Assessment and Plan Start: 12/02/23 17:12 Freq: Status: Active Protocol: Document 03/30/24 08:11 [facility] (Rec: 03/30/24 13:26 AB [id number]) Physical Therapy Assessment Goals strength Short Term Goal (STG) Pt will be able to reciprocate up/down stairs w/rail 01/25/24: Did not attempt on progress note given pain and guarding behavior. 02/22-able w/touching rail for balance STG Duration achieved 02/22 Mcc Goal (LTG) Pt will score at least 4+/5 on all BLE MMT to show improved strength and stability to allow greater ease w/activity. 01/25/24: Pt supine: B DF and great toe extension 5/5; right knee flexion and extension: 5 /5; right hip flexion and extension and abduction 4+/5; left knee: with attempted knee flexion testing, pt reports pain at hip and gives way at 3 +/5 and knee extension also causes hip pain with strength 4/5. MMT left hip deferred d/t pain. 02/22-improving LTG Duration 2/6 balance Mcc Goal (LTG) Pt will be able to do at least 10 sec SLS B. 01/25/24: Pt not ready to perform on progress note. 02/22-15 sec L, 30 sec R LTG Duration achieved 02/22 walking Short Term Goal (STG) Pt will be able to go for .5 mile walks w/pain no greater than 2/10. 01/25/24: Pt is walking with her SPC in right hand .5 mile with no more than 2/10 pain. 6MWT today with cane in right hand: 891 feet with mildly antalgic gait, slow jania and partial step-to pattern STG Duration achieved Mcc Goal (LTG) Pt will report being able to return to hiking on uneven terrain for >2 miles w/o pain >2/10 with use of no AD or with use of hiking sticks. 02/22-hiking sticks on even terrain 1.8 miles LTG Duration 04/22 LEFS Impairment 18/80 Short Term Goal (STG) Pt will improve LEFS score to at least 35/80 to show improved functional ability. 01/25/24: LEF score is 32/80. STG Duration achieved 45/80 Research And Development Scientist Goal (LTG) Pt will improve LEFS score to at least 55/80 to show improved functional ability. 01/25/24: LEF score is 32/80. 02/22-/80 LTG Duration 2/ Assessment Summary Assessment Mone rates pain 1/10 left quad standing end of session, reports quad feels better ambulating out of session carrying walking stick. Physical Therapy Plan Frequency and Duration Frequency of Treatment 1-2x/wk Duration of treatment (weeks) 8 Plan of Care Start Date 02/23/24 Plan of Care End Date 04/27/24 Next Visit Focus/Plan Next Note Type Treatment Note Next Visit Plan manual to improve hip mobility w/less pain; cont to improve gait, Possibly standing glute med isometric and heel raise on step to HEP.
--- NOTE | 2024-04-06 12:30 | PT.OTN ---
Current Diagnoses Pain in left hip (04/06/24) Physical Therapy Treatment Note PT-OP-A Visit Information Start: 12/02/23 17:12 Freq: Status: Active Protocol: Document 04/06/24 09:06 [facility] (Rec: 04/06/24 12:30 [facility] [id number]) Out-Patient Physical Therapy Visit Information Visit Information Visit Type Progress Note Visit Note Access Code: [email or web address] Visit Start Time 09:05 Visit Stop Time 09:45 Visit Number 27 Number of FOOD CHEMIST Visits 0 PT-OP-B Current Condition Start: 12/02/23 17:12 Freq: Status: Active Protocol: Document 12/30/23 13:01 [facility] (Rec: 12/30/23 13:51 [facility] [id number]) Current Condition History of Current Condition Onset Date 12/26 Current Complaints L ant DAVID History of Current Condition Pt had L anterior DAVID 12/26 without complications d/t OA. Pt has had B TKA and has had good recovery. Avoids getting down on knees and avoids running, and jumping. Pt reports got DAVID d/t gradual wearing down. Pt reports doing well with FWW Pt has SLH w/1 IVORY. Pt has tub shower w/hand rails. Has not showered yet. The day of sx, she did have some dizziness and hasn't had issues past couple days. No issues w/toilet. Pt has been getting assistance w/ compression socks and shoes and pants. Has mostly been wearing skirts. Sister staying w/pt now. Has been doing glute and quad sets, APs, and heel slides. Treatment Goals Patient/Caregiver Goals Wants to be able to walk and hike and be able to bike and swim and garden. Be able to squat PT-OP-C Subjective Start: 12/02/23 17:12 Freq: Status: Active Protocol: Document 04/06/24 09:06 [facility] (Rec: 04/06/24 12:30 [facility] [id number]) OP-PT Subjective Patient Comments Patient Comments Feels like still slowly recovering from last week set back. Still pain in quad, lat thigh and add region. Yesterday when woke up, had a knot in calf and its still here. PT-OP-G Mobility & Gait Start: 12/02/23 17:12 Freq: Status: Active Protocol: Document 12/30/23 13:01 [facility] (Rec: 12/30/23 13:51 [facility] [id number]) OP Mobility Evaluation Bed Mobility Supine to and from Sit uses RLE to help up LLE Transfers Sit to Stand puts LLE out in front and uses UEs to FWW OP Gait Assessment Assistive Devices Assistive Device Front Wheeled Walker Gait Deviations General Gait Pattern Antalgic,Decreased Stride Length PT-OP-M Strength Start: 12/02/23 17:12 Freq: Status: Active Protocol: Document 04/06/24 09:06 [facility] (Rec: 04/06/24 12:30 [facility] [id number]) Hip Strength Hip Manual Muscle Testing Right Flexion (L2) 4- Good- External Rotation 4+ Good+ Internal Rotation 5 Normal Left Flexion (L2) 3+ Fair+ External Rotation 4- Good- Internal Rotation 4 Good Comments pain in groin w/ hip flex and ER, pain lat knee IR Knee Strength Knee Manual Muscle Testing Right Flexion (S2) 5 Normal Extension (L3) 5 Normal Left Flexion (S2) 5 Normal Extension (L3) 5 Normal Comments pain lat knee Ankle/Foot Strength Ankle and Foot Manual Muscle Testing Right Dorsiflexion (L4) 5 Normal Plantarflexion (S1) 5 Normal Left Dorsiflexion (L4) 5 Normal Plantarflexion (S1) 5 Normal Comments seated testing PT-OP-Q Treatments Start: 12/02/23 17:12 Freq: Status: Active Protocol: Document 04/06/24 09:06 [facility] (Rec: 04/06/24 12:30 [facility] [id number]) Therapeutic Exercises Standing Exercises stretch Standing Exercise Name 1. hip flexor 2. add Side left Reps/Minutes 30 sec ea Other Exercises isometrics Other Exercise Name B LE MMT Manual Therapy Treatment Consent Patient gave verbal consent for manual Yes treatment Soft Tissue Mobilization hip flexor Body Location L proximal psoas and distal Mobilization Type Rolling,Sustained Pressure Intensity/Depth Moderate Comments 90/90 hips quad Body Location L w/cupping and hip flex ITB Body Location L lat w/cupping w/hip flex glutes Body Location L lat w/cupping w/hip flex Joint Mobilizations sacrum Joint caudal L and UPA L prone w/LTR innominate Joint L caudal and ER prone c/r left hip Joint L hip on axis gentle IR and ER ; hookying inf PT-OP-R Modalities Start: 12/02/23 17:12 Freq: Status: Active Protocol: Document 02/03/24 09:57 [facility] (Rec: 02/03/24 12:54 [facility] [id number]) Electric Stimulation Electric Stimulation Quad Body Location Quad Intensity 13 Target/Sweep Sweep High/Low Low Patient Position Hooklying Combined With Heat/Cold Cold Pack Comments Bolster under LE, izquierdo within reach, x10', electrodes surrounding quad muscle, not over surgical site, good tolerance PT-OP-T Assessment and Plan Start: 12/02/23 17:12 Freq: Status: Active Protocol: Document 04/06/24 09:06 [facility] (Rec: 04/06/24 12:30 [facility] [id number]) Physical Therapy Assessment Goals strength Short Term Goal (STG) Pt will be able to reciprocate up/down stairs w/rail 01/25/24: Did not attempt on progress note given pain and guarding behavior. 02/22-able w/touching rail for balance STG Duration achieved 02/22 Snf Goal (LTG) Pt will score at least 4+/5 on all BLE MMT to show improved strength and stability to allow greater ease w/activity. 01/25/24: Pt supine: B DF and great toe extension 5/5; right knee flexion and extension: 5 /5; right hip flexion and extension and abduction 4+/5; left knee: with attempted knee flexion testing, pt reports pain at hip and gives way at 3 +/5 and knee extension also causes hip pain with strength 4/5. MMT left hip deferred d/t pain. 02/22-improving 04/06-limited progress recently w/set back LTG Duration 05/17 balance Fish Straightener Goal (LTG) Pt will be able to do at least 10 sec SLS B. 01/25/24: Pt not ready to perform on progress note. 02/22-15 sec L, 30 sec R LTG Duration achieved 02/22 walking Short Term Goal (STG) Pt will be able to go for .5 mile walks w/pain no greater than 2/10. 01/25/24: Pt is walking with her SPC in right hand .5 mile with no more than 2/10 pain. 6MWT today with cane in right hand: 891 feet with mildly antalgic gait, slow jania and partial step-to pattern STG Duration achieved Snf Goal (LTG) Pt will report being able to return to hiking on uneven terrain for >2 miles w/o pain >2/10 with use of no AD or with use of hiking sticks. 02/22-hiking sticks on even terrain 1.8 miles 04/06-has done gravel walks and steps and along beach prior to flare up and it felt okay until walked too much. LTG Duration 05/17 LEFS Impairment 18/80 Short Term Goal (STG) Pt will improve LEFS score to at least 35/80 to show improved functional ability. 01/25/24: LEF score is 32/80. STG Duration achieved 45/80 Fish Straightener Goal (LTG) Pt will improve LEFS score to at least 55/80 to show improved functional ability. 01/25/24: LEF score is 32/80. 02/22-45/80 04/06-n/t LTG Duration 05/18 Assessment Summary Assessment Pt had recent inc pain recently w/set back after she feels like she overdid it. She is having difficulty with overall strength and hip flexor strength likely d/t irritation. She cont to have impingement symptoms. COnt PT to improved strength and mobility. Her progerss has been affected by multiple set backs Physical Therapy Plan Frequency and Duration Frequency of Treatment 1x/Week Duration of treatment (weeks) 6 Plan of Care Start Date 04/06/24 Plan of Care End Date 05/18/24 Therapeutic Interventions Therapeutic Interventions Balance Training,Gait Training ,Home Exercise Program,Joint Mobilizations,Manual Therapy, Neuromuscular Re-education, Patient/Caregiver Education, Self-Care/Home Management,Soft Tissue Mobilization,Taping, Therapeutic Activities, Therapeutic Exercises Modalities Cold Pack/Ice Massage,Electric Stimulation,Hot Packs, Ultrasound Next Visit Focus/Plan Next Note Type Treatment Note Next Visit Plan try laser to hip flexor insertion, manual to L hip and innominate for improved mobility and dec pain, cont strength for gait and activity , avoid reps w/hip flex
--- NOTE | 2024-04-06 12:30 | PT.OPPOC ---
Physical, Occupational & Speech Therapy At [facility] Current Diagnoses Pain in left hip (04/06/24) Visit Care Team Role Provider Type Jose Patel DO Family Provider Physician Primary Care Provider Specialty: Family Practice Address: [address] [place] [address], [id number] Email: [email or web address] Aristides Raya MD Attending Provider Non-Staff Referring Provider Specialty: Orthopedic Surgery Address: [address] [place] [address] , [place], [address] Email: Plan Of Care PT-OP-B Current Condition Start: 12/02/23 17:12 Freq: Status: Active Protocol: Document 12/30/23 13:01 [facility] (Rec: 12/30/23 13:51 [facility] [id number]) Current Condition History of Current Condition Onset Date 12/26 Current Complaints L ant DAVID History of Current Condition Pt had L anterior DAVID 12/26 without complications d/t OA. Pt has had B TKA and has had good recovery. Avoids getting down on knees and avoids running, and jumping. Pt reports got DAVID d/t gradual wearing down. Pt reports doing well with FWW Pt has SLH w/1 IVORY. Pt has tub shower w/hand rails. Has not showered yet. The day of sx, she did have some dizziness and hasn't had issues past couple days. No issues w/toilet. Pt has been getting assistance w/ compression socks and shoes and pants. Has mostly been wearing skirts. Sister staying w/pt now. Has been doing glute and quad sets, APs, and heel slides. Treatment Goals Patient/Caregiver Goals Wants to be able to walk and hike and be able to bike and swim and garden. Be able to squat PT-OP-T Assessment and Plan Start: 12/02/23 17:12 Freq: Status: Active Protocol: Document 04/06/24 09:06 [facility] (Rec: 04/06/24 12:30 [facility] [id number]) Physical Therapy Assessment Goals strength Short Term Goal (STG) Pt will be able to reciprocate up/down stairs w/rail 01/25/24: Did not attempt on progress note given pain and guarding behavior. 02/22-able w/touching rail for balance STG Duration achieved 02/22 Radiological Engineer Goal (LTG) Pt will score at least 4+/5 on all BLE MMT to show improved strength and stability to allow greater ease w/activity. 01/25/24: Pt supine: B DF and great toe extension 5/5; right knee flexion and extension: 5 /5; right hip flexion and extension and abduction 4+/5; left knee: with attempted knee flexion testing, pt reports pain at hip and gives way at 3 +/5 and knee extension also causes hip pain with strength 4/5. MMT left hip deferred d/t pain. 02/22-improving 04/06-limited progress recently w/set back LTG Duration 05/17 balance Detention Goal (LTG) Pt will be able to do at least 10 sec SLS B. 01/25/24: Pt not ready to perform on progress note. 02/22-15 sec L, 30 sec R LTG Duration achieved 02/22 walking Short Term Goal (STG) Pt will be able to go for .5 mile walks w/pain no greater than 2/10. 01/25/24: Pt is walking with her SPC in right hand .5 mile with no more than 2/10 pain. 6MWT today with cane in right hand: 891 feet with mildly antalgic gait, slow jania and partial step-to pattern STG Duration achieved Radiological Engineer Goal (LTG) Pt will report being able to return to hiking on uneven terrain for >2 miles w/o pain >2/10 with use of no AD or with use of hiking sticks. 02/22-hiking sticks on even terrain 1.8 miles 04/06-has done gravel walks and steps and along beach prior to flare up and it felt okay until walked too much. LTG Duration 05/17 LEFS Impairment 18/80 Short Term Goal (STG) Pt will improve LEFS score to at least 35/80 to show improved functional ability. 01/25/24: LEF score is 32/80. STG Duration achieved 45/80 Radiological Engineer Goal (LTG) Pt will improve LEFS score to at least 55/80 to show improved functional ability. 01/25/24: LEF score is 32/80. 02/22-45/80 04/06-n/t LTG Duration 05/18 Assessment Summary Assessment Pt had recent inc pain recently w/set back after she feels like she overdid it. She is having difficulty with overall strength and hip flexor strength likely d/t irritation. She cont to have impingement symptoms. COnt PT to improved strength and mobility. Her progerss has been affected by multiple set backs Physical Therapy Plan Frequency and Duration Frequency of Treatment 1x/Week Duration of treatment (weeks) 6 Plan of Care Start Date 04/06/24 Plan of Care End Date 05/18/24 Therapeutic Interventions Therapeutic Interventions Balance Training,Gait Training ,Home Exercise Program,Joint Mobilizations,Manual Therapy, Neuromuscular Re-education, Patient/Caregiver Education, Self-Care/Home Management,Soft Tissue Mobilization,Taping, Therapeutic Activities, Therapeutic Exercises Modalities Cold Pack/Ice Massage,Electric Stimulation,Hot Packs, Ultrasound Next Visit Focus/Plan Next Note Type Treatment Note Next Visit Plan try laser to hip flexor insertion, manual to L hip and innominate for improved mobility and dec pain, cont strength for gait and activity , avoid reps w/hip flex Plan of Care Dates Plan of Care Start Date 04/06/24 Plan of Care End Date 05/18/24 Electronically Signed by: Betty Hart, PT 04/06/24 6241 If you are in agreement with this Plan of Care, please return a signed and dated copy. I have reviewed this Plan of Care and certify that the skilled therapy services above are required to meet the patient?s needs. Physician Signature Date Printed Name and Credentials Clinical Instructor Signature Printed Name and Credentials
--- NOTE | 2024-04-13 10:38 | PT.OTN ---
Current Diagnoses Pain in left hip (04/13/24) Physical Therapy Treatment Note PT-OP-A Visit Information Start: 12/02/23 17:12 Freq: Status: Active Protocol: Document 04/13/24 08:10 [facility] (Rec: 04/13/24 10:38 [facility] [id number]) Out-Patient Physical Therapy Visit Information Visit Information Visit Type Progress Note Visit Note Access Code: [email or web address] Visit Start Time 09:03 Visit Stop Time 09:47 Visit Number 28 Number of BREAKDOWN PERSON Visits 1 PT-OP-B Current Condition Start: 12/02/23 17:12 Freq: Status: Active Protocol: Document 12/30/23 13:01 [facility] (Rec: 12/30/23 13:51 [facility] [id number]) Current Condition History of Current Condition Onset Date 12/26 Current Complaints L ant DAVID History of Current Condition Pt had L anterior DAVID 12/26 without complications d/t OA. Pt has had B TKA and has had good recovery. Avoids getting down on knees and avoids running, and jumping. Pt reports got DAVID d/t gradual wearing down. Pt reports doing well with FWW Pt has SLH w/1 IVORY. Pt has tub shower w/hand rails. Has not showered yet. The day of sx, she did have some dizziness and hasn't had issues past couple days. No issues w/toilet. Pt has been getting assistance w/ compression socks and shoes and pants. Has mostly been wearing skirts. Sister staying w/pt now. Has been doing glute and quad sets, APs, and heel slides. Treatment Goals Patient/Caregiver Goals Wants to be able to walk and hike and be able to bike and swim and garden. Be able to squat PT-OP-C Subjective Start: 12/02/23 17:12 Freq: Status: Active Protocol: Document 04/13/24 08:10 [facility] (Rec: 04/13/24 10:38 [facility] [id number]) OP-PT Subjective Patient Comments Patient Comments Patient reports she walked over here, comments feels a pull through glute/piriformis area 2/10 pain. PT-OP-G Mobility & Gait Start: 12/02/23 17:12 Freq: Status: Active Protocol: Document 12/30/23 13:01 [facility] (Rec: 12/30/23 13:51 [facility] [id number]) OP Mobility Evaluation Bed Mobility Supine to and from Sit uses RLE to help up LLE Transfers Sit to Stand puts LLE out in front and uses UEs to FWW OP Gait Assessment Assistive Devices Assistive Device Front Wheeled Walker Gait Deviations General Gait Pattern Antalgic,Decreased Stride Length PT-OP-M Strength Start: 12/02/23 17:12 Freq: Status: Active Protocol: Document 04/06/24 09:06 [facility] (Rec: 04/06/24 12:30 [facility] [id number]) Hip Strength Hip Manual Muscle Testing Right Flexion (L2) 4- Good- External Rotation 4+ Good+ Internal Rotation 5 Normal Left Flexion (L2) 3+ Fair+ External Rotation 4- Good- Internal Rotation 4 Good Comments pain in groin w/ hip flex and ER, pain lat knee IR Knee Strength Knee Manual Muscle Testing Right Flexion (S2) 5 Normal Extension (L3) 5 Normal Left Flexion (S2) 5 Normal Extension (L3) 5 Normal Comments pain lat knee Ankle/Foot Strength Ankle and Foot Manual Muscle Testing Right Dorsiflexion (L4) 5 Normal Plantarflexion (S1) 5 Normal Left Dorsiflexion (L4) 5 Normal Plantarflexion (S1) 5 Normal Comments seated testing PT-OP-Q Treatments Start: 12/02/23 17:12 Freq: Status: Active Protocol: Document 04/13/24 08:10 [facility] (Rec: 04/13/24 10:38 [facility] [id number]) Therapeutic Exercises Supine Exercises Piriformis stretch Side bilateral Reps/Minutes 60 sec X 1 Comments verbal and tactile cues Bong stretch Side left Reps/Minutes 60 sec X 1 Comments verbal cues for LE positioning mini bridge Supine Exercise Name 1. DL 2. SL Side bilateral Reps/Minutes 1. 5 2. 5 B Comments verbal cues to push into heels Sitting Exercises seated hip abduction with band Sitting Exercise Name HEP Side bilateral Resistance level3 band Reps/Minutes one min X 1 Standing Exercises squat with band Side bilateral Resistance level 3 band Reps/Minutes X15 Comments verbal cues to keep tension on band hip abd Standing Exercise Name sidesteps Side bilateral Resistance L3 at ankles Reps/Minutes 10 ft left and right X 3 Comments cues slow and controlled Manual Therapy Treatment Soft Tissue Mobilization hip flexor Body Location L proximal psoas and distal Mobilization Type Cross-Friction,Rolling, Sustained Pressure Intensity/Depth Moderate Comments 90/90 hips glutes Body Location left Mobilization Type Cross-Friction,Myofascial Release,Rolling,Sustained Pressure Intensity/Depth Moderate Body Position Sidelying Joint Mobilizations Mulligan with movement TC mob Joint left TC joint Direction AP Grade IV Reps/Duration X10 X 3 Manual Techniques left AI right PI and pubic shotgun Type Left AI right PI this session, Reps/Duration sec X 6 each PT-OP-R Modalities Start: 12/02/23 17:12 Freq: Status: Active Protocol: Document 04/13/24 08:10 [facility] (Rec: 04/13/24 10:38 AB [id number]) Infrared Treatment Treatment left hip Body Position Hooklying Continuous/Pulsed Continuous Program or Protocal Chronic cont, mus tendon pain/ stiffness Comments at insert illio psoas X 3 areas PT-OP-T Assessment and Plan Start: 12/02/23 17:12 Freq: Status: Active Protocol: Document 04/13/24 08:10 [facility] (Rec: 04/13/24 10:38 AB [id number]) Physical Therapy Assessment Goals strength Short Term Goal (STG) Pt will be able to reciprocate up/down stairs w/rail 01/25/24: Did not attempt on progress note given pain and guarding behavior. 02/22-able w/touching rail for balance STG Duration achieved 02/22 [employer]ur [employer] Goal (LTG) Pt will score at least 4+/5 on all BLE MMT to show improved strength and stability to allow greater ease w/activity. 01/25/24: Pt supine: B DF and great toe extension 5/5; right knee flexion and extension: 5 /5; right hip flexion and extension and abduction 4+/5; left knee: with attempted knee flexion testing, pt reports pain at hip and gives way at 3 +/5 and knee extension also causes hip pain with strength 4/5. MMT left hip deferred d/t pain. 02/22-improving 04/06-limited progress recently w/set back LTG Duration 05/17 balance Jail Goal (LTG) Pt will be able to do at least 10 sec SLS B. 01/25/24: Pt not ready to perform on progress note. 02/22-15 sec L, 30 sec R LTG Duration achieved 02/22 walking Short Term Goal (STG) Pt will be able to go for .5 mile walks w/pain no greater than 2/10. 01/25/24: Pt is walking with her SPC in right hand .5 mile with no more than 2/10 pain. 6MWT today with cane in right hand: 891 feet with mildly antalgic gait, slow jania and partial step-to pattern STG Duration achieved [employer] Goal (LTG) Pt will report being able to return to hiking on uneven terrain for >2 miles w/o pain >2/10 with use of no AD or with use of hiking sticks. 02/22-hiking sticks on even terrain 1.8 miles 04/06-has done gravel walks and steps and along beach prior to flare up and it felt okay until walked too much. LTG Duration 05/17 LEFS Impairment 18/80 Short Term Goal (STG) Pt will improve LEFS score to at least 35/80 to show improved functional ability. 01/25/24: LEF score is 32/80. STG Duration achieved 45/80 Jail Goal (LTG) Pt will improve LEFS score to at least 55/80 to show improved functional ability. 01/25/24: LEF score is 32/80. 02/22-45/80 04/06-n/t LTG Duration 05/18 Assessment Summary Assessment Mone reports pain left hip is the same end of session, did report felt better post laser, but then back to level of start of session post WB exercises with band. Issued level 3 band. Physical Therapy Plan Frequency and Duration Frequency of Treatment 1x/Week Duration of treatment (weeks) 6 Plan of Care Start Date 04/06/24 Plan of Care End Date 05/18/24 Next Visit Focus/Plan Next Note Type Treatment Note Next Visit Plan try laser to hip flexor assess mary to insertion, manual to L hip innominate for improved mobility and dec pain, cont strength for gait and activity , avoid reps w/hip flex
--- NOTE | 2024-04-20 12:04 | PT.OTN ---
Current Diagnoses Pain in left hip (04/20/24) Physical Therapy Treatment Note PT-OP-A Visit Information Start: 12/02/23 17:12 Freq: Status: Active Protocol: Document 04/20/24 09:04 [facility] (Rec: 04/20/24 12:04 [facility] [id number]) Out-Patient Physical Therapy Visit Information Visit Information Visit Type Treatment Note Visit Note Access Code: [email or web address] Visit Start Time 09:05 Visit Stop Time 09:45 Visit Number 29 Number of FOOD AND BEVERAGE SERVICE MANAGER Visits 0 PT-OP-B Current Condition Start: 12/02/23 17:12 Freq: Status: Active Protocol: Document 12/30/23 13:01 [facility] (Rec: 12/30/23 13:51 [facility] [id number]) Current Condition History of Current Condition Onset Date 12/26 Current Complaints L ant DAVID History of Current Condition Pt had L anterior DAVID 12/26 without complications d/t OA. Pt has had B TKA and has had good recovery. Avoids getting down on knees and avoids running, and jumping. Pt reports got DAVID d/t gradual wearing down. Pt reports doing well with FWW Pt has SLH w/1 IVORY. Pt has tub shower w/hand rails. Has not showered yet. The day of sx, she did have some dizziness and hasn't had issues past couple days. No issues w/toilet. Pt has been getting assistance w/ compression socks and shoes and pants. Has mostly been wearing skirts. Sister staying w/pt now. Has been doing glute and quad sets, APs, and heel slides. Treatment Goals Patient/Caregiver Goals Wants to be able to walk and hike and be able to bike and swim and garden. Be able to squat PT-OP-C Subjective Start: 12/02/23 17:12 Freq: Status: Active Protocol: Document 04/20/24 09:04 [facility] (Rec: 04/20/24 12:04 [facility] [id number]) OP-PT Subjective Patient Comments Patient Comments pain comes and goes. knee feels tight in AM when first waking up. Takes about .5 to 1 hour to loosen up w/stretches . Hasn't been walking as much d/t other things. can't be in garden too long. Doesn't feel like laser helped at all PT-OP-G Mobility & Gait Start: 12/02/23 17:12 Freq: Status: Active Protocol: Document 12/30/23 13:01 [facility] (Rec: 12/30/23 13:51 [facility] [id number]) OP Mobility Evaluation Bed Mobility Supine to and from Sit uses RLE to help up LLE Transfers Sit to Stand puts LLE out in front and uses UEs to FWW OP Gait Assessment Assistive Devices Assistive Device Front Wheeled Walker Gait Deviations General Gait Pattern Antalgic,Decreased Stride Length PT-OP-M Strength Start: 12/02/23 17:12 Freq: Status: Active Protocol: Document 04/06/24 09:06 [facility] (Rec: 04/06/24 12:30 [facility] [id number]) Hip Strength Hip Manual Muscle Testing Right Flexion (L2) 4- Good- External Rotation 4+ Good+ Internal Rotation 5 Normal Left Flexion (L2) 3+ Fair+ External Rotation 4- Good- Internal Rotation 4 Good Comments pain in groin w/ hip flex and ER, pain lat knee IR Knee Strength Knee Manual Muscle Testing Right Flexion (S2) 5 Normal Extension (L3) 5 Normal Left Flexion (S2) 5 Normal Extension (L3) 5 Normal Comments pain lat knee Ankle/Foot Strength Ankle and Foot Manual Muscle Testing Right Dorsiflexion (L4) 5 Normal Plantarflexion (S1) 5 Normal Left Dorsiflexion (L4) 5 Normal Plantarflexion (S1) 5 Normal Comments seated testing PT-OP-Q Treatments Start: 12/02/23 17:12 Freq: Status: Active Protocol: Document 04/20/24 09:04 [facility] (Rec: 04/20/24 12:04 [facility] [id number]) Therapeutic Activity Therapeutic Activity hip hinge Reps/Minutes 15 min Comments work on hip hinge and squat mechanics for garden w/dowel Manual Therapy Treatment Consent Patient gave verbal consent for manual Yes treatment Soft Tissue Mobilization hip flexor Body Location L proximal psoas and distal Mobilization Type Cross-Friction,Rolling, Sustained Pressure Intensity/Depth Moderate Comments 90/90 hips quad Body Location L proximal rectus femoris Mobilization Type Sustained Pressure left adductor Body Location L add mangnus, longus, pectineus, gracilis Mobilization Type Rolling,Sustained Pressure Comments proximal w/hip abd /ER Joint Mobilizations innominate Comments L hooklying ER c/r left hip Joint L hip on axis gentle supine IR c/r Neuro Re-Education Treatment Other Activities PNF Reps/Duration 8 min Comments irradiation from LLE to L pelvis w/manual facilitation to improve ant elevation progressed to sustained hold then to COI w/dissociation of LLE from L pelvis then COI w/ pelvis and LLE together PT-OP-R Modalities Start: 12/02/23 17:12 Freq: Status: Active Protocol: Document 04/13/24 08:10 [facility] (Rec: 04/13/24 10:38 AB [id number]) Infrared Treatment Treatment left hip Body Position Hooklying Continuous/Pulsed Continuous Program or Protocal Chronic cont, mus tendon pain/ stiffness Comments at insert illio psoas X 3 areas PT-OP-T Assessment and Plan Start: 12/02/23 17:12 Freq: Status: Active Protocol: Document 04/20/24 09:04 [facility] (Rec: 04/20/24 12:04 [facility] [id number]) Physical Therapy Assessment Goals strength Short Term Goal (STG) Pt will be able to reciprocate up/down stairs w/rail 01/25/24: Did not attempt on progress note given pain and guarding behavior. 02/22-able w/touching rail for balance STG Duration achieved 02/22 Automation Specialist Goal (LTG) Pt will score at least 4+/5 on all BLE MMT to show improved strength and stability to allow greater ease w/activity. 01/25/24: Pt supine: B DF and great toe extension 5/5; right knee flexion and extension: 5 /5; right hip flexion and extension and abduction 4+/5; left knee: with attempted knee flexion testing, pt reports pain at hip and gives way at 3 +/5 and knee extension also causes hip pain with strength 4/5. MMT left hip deferred d/t pain. 02/22-improving 04/06-limited progress recently w/set back LTG Duration 05/17 balance Senior Living Goal (LTG) Pt will be able to do at least 10 sec SLS B. 01/25/24: Pt not ready to perform on progress note. 02/22-15 sec L, 30 sec R LTG Duration achieved 02/22 walking Short Term Goal (STG) Pt will be able to go for .5 mile walks w/pain no greater than 2/10. 01/25/24: Pt is walking with her SPC in right hand .5 mile with no more than 2/10 pain. 6MWT today with cane in right hand: 891 feet with mildly antalgic gait, slow jania and partial step-to pattern STG Duration achieved Senior Living Goal (LTG) Pt will report being able to return to hiking on uneven terrain for >2 miles w/o pain >2/10 with use of no AD or with use of hiking sticks. 02/22-hiking sticks on even terrain 1.8 miles 04/06-has done gravel walks and steps and along beach prior to flare up and it felt okay until walked too much. LTG Duration 05/17 LEFS Impairment 18/80 Short Term Goal (STG) Pt will improve LEFS score to at least 35/80 to show improved functional ability. 01/25/24: LEF score is 32/80. STG Duration achieved 45/80 [facility] Goal (LTG) Pt will improve LEFS score to at least 55/80 to show improved functional ability. 01/25/24: LEF score is 32/80. 02/22-45/80 04/06-n/t LTG Duration 05/18 Assessment Summary Assessment Pt cont to lack core controla nd requierd education for appropriate mechanics in garden to dec pressure into back and neural system. She did well with manual and had improved flex and IR after. Physical Therapy Plan Frequency and Duration Frequency of Treatment 1x/Week Duration of treatment (weeks) 6 Plan of Care Start Date 04/06/24 Plan of Care End Date 05/18/24 Next Visit Focus/Plan Next Note Type Treatment Note Next Visit Plan manual and PNF for improved function, cont strength for gait and activity, avoid reps w/hip flex
--- NOTE | 2024-04-24 09:03 | PT.OTN ---
Current Diagnoses Pain in left hip (04/24/24) Physical Therapy Treatment Note PT-OP-A Visit Information Start: 12/02/23 17:12 Freq: Status: Active Protocol: Document 04/24/24 08:08 [facility] (Rec: 04/24/24 09:03 [facility] [id number]) Out-Patient Physical Therapy Visit Information Visit Information Visit Type Treatment Note Visit Note Access Code: [email or web address] Visit Start Time 08:17 Visit Stop Time 09:02 Visit Number 30 Number of FLOWER GRADER Visits 1 PT-OP-B Current Condition Start: 12/02/23 17:12 Freq: Status: Active Protocol: Document 12/30/23 13:01 [facility] (Rec: 12/30/23 13:51 [facility] [id number]) Current Condition History of Current Condition Onset Date 12/26 Current Complaints L ant DAVID History of Current Condition Pt had L anterior DAVID 12/26 without complications d/t OA. Pt has had B TKA and has had good recovery. Avoids getting down on knees and avoids running, and jumping. Pt reports got DAVID d/t gradual wearing down. Pt reports doing well with FWW Pt has SLH w/1 IVORY. Pt has tub shower w/hand rails. Has not showered yet. The day of sx, she did have some dizziness and hasn't had issues past couple days. No issues w/toilet. Pt has been getting assistance w/ compression socks and shoes and pants. Has mostly been wearing skirts. Sister staying w/pt now. Has been doing glute and quad sets, APs, and heel slides. Treatment Goals Patient/Caregiver Goals Wants to be able to walk and hike and be able to bike and swim and garden. Be able to squat PT-OP-C Subjective Start: 12/02/23 17:12 Freq: Status: Active Protocol: Document 04/24/24 08:08 [facility] (Rec: 04/24/24 09:03 AB [id number]) OP-PT Subjective Patient Comments Patient Comments Patient reports what Betty did last session really helped , has no pain today, but muscles still feel tight. PT-OP-G Mobility & Gait Start: 12/02/23 17:12 Freq: Status: Active Protocol: Document 12/30/23 13:01 [facility] (Rec: 12/30/23 13:51 [facility] [id number]) OP Mobility Evaluation Bed Mobility Supine to and from Sit uses RLE to help up LLE Transfers Sit to Stand puts LLE out in front and uses UEs to FWW OP Gait Assessment Assistive Devices Assistive Device Front Wheeled Walker Gait Deviations General Gait Pattern Antalgic,Decreased Stride Length PT-OP-M Strength Start: 12/02/23 17:12 Freq: Status: Active Protocol: Document 04/06/24 09:06 [facility] (Rec: 04/06/24 12:30 [facility] [id number]) Hip Strength Hip Manual Muscle Testing Right Flexion (L2) 4- Good- External Rotation 4+ Good+ Internal Rotation 5 Normal Left Flexion (L2) 3+ Fair+ External Rotation 4- Good- Internal Rotation 4 Good Comments pain in groin w/ hip flex and ER, pain lat knee IR Knee Strength Knee Manual Muscle Testing Right Flexion (S2) 5 Normal Extension (L3) 5 Normal Left Flexion (S2) 5 Normal Extension (L3) 5 Normal Comments pain lat knee Ankle/Foot Strength Ankle and Foot Manual Muscle Testing Right Dorsiflexion (L4) 5 Normal Plantarflexion (S1) 5 Normal Left Dorsiflexion (L4) 5 Normal Plantarflexion (S1) 5 Normal Comments seated testing PT-OP-Q Treatments Start: 12/02/23 17:12 Freq: Status: Active Protocol: Document 04/24/24 08:08 [facility] (Rec: 04/24/24 09:03 AB [id number]) Therapeutic Exercises Supine Exercises Piriformis stretch Side bilateral Reps/Minutes 60 sec X 1 Comments verbal and tactile cues Bong stretch Side left Reps/Minutes 60 sec X 1 Comments verbal cues for LE positioning mini bridge Supine Exercise Name 1. DL 2. SL ( segemental bridge) Side bilateral Reps/Minutes 1. 5 2. 5 B Comments verbal cues to push into heels Sidelying Exercises PNF LE Sidelying Exercise Name (D1 for HEP only D I)and D 2 extension Side right Reps/Minutes X3 AA X 3 resisted X 3 active Comments verbal and tactile cues Standing Exercises glute med isometric Standing Exercise Name standing at wall Side bilateral Reps/Minutes 1 for one min each LE Comments verbal and visual cues squat with band Side bilateral Resistance level 4 band Reps/Minutes sit to stand w/ dowel w/o band X2 then X8 with band and dowel, X10 squat Comments verbal cues to keep tension on band calf stretches Standing Exercise Name Soleus and gastroc Side bilateral Equipment Used HEP Reps/Minutes on stairs X 2 each Manual Therapy Treatment Consent Patient gave verbal consent for manual Yes treatment Soft Tissue Mobilization hip flexor Body Location L proximal psoas and distal Mobilization Type Cross-Friction,Rolling, Sustained Pressure Intensity/Depth Moderate Comments 90/90 hips quad Body Location L proximal rectus femoris Mobilization Type Cross-Friction,Sustained Pressure glutes Body Location left Mobilization Type Cross-Friction,Myofascial Release,Rolling,Sustained Pressure Intensity/Depth Moderate Body Position Sidelying left adductor Body Location L add mangnus, longus, pectineus, gracilis Mobilization Type Rolling,Sustained Pressure Joint Mobilizations left hip Joint inf Grade II Body Position Hooklying Reps/Duration X10 X 3 Manual Techniques left AI right PI and pubic shotgun Type Left AI right PI this session, Reps/Duration sec X 6 each PT-OP-R Modalities Start: 12/02/23 17:12 Freq: Status: Active Protocol: Document 04/13/24 08:10 AB (Rec: 04/13/24 10:38 AB [id number]) Infrared Treatment Treatment left hip Body Position Hooklying Continuous/Pulsed Continuous Program or Protocal Chronic cont, mus tendon pain/ stiffness Comments at insert illio psoas X 3 areas PT-OP-T Assessment and Plan Start: 12/02/23 17:12 Freq: Status: Active Protocol: Document 04/24/24 08:08 AB (Rec: 04/24/24 09:03 AB [id number]) Physical Therapy Assessment Goals strength Short Term Goal (STG) Pt will be able to reciprocate up/down stairs w/rail 01/25/24: Did not attempt on progress note given pain and guarding behavior. 02/22-able w/touching rail for balance STG Duration achieved 02/22 [facility] Goal (LTG) Pt will score at least 4+/5 on all BLE MMT to show improved strength and stability to allow greater ease w/activity. 01/25/24: Pt supine: B DF and great toe extension 5/5; right knee flexion and extension: 5 /5; right hip flexion and extension and abduction 4+/5; left knee: with attempted knee flexion testing, pt reports pain at hip and gives way at 3 +/5 and knee extension also causes hip pain with strength 06/24. MMT left hip deferred d/t pain. 02/22-improving 04/06-limited progress recently w/set back LTG Duration 05/17 balance Performance Solutions Specialist Goal (LTG) Pt will be able to do at least 10 sec SLS B. 01/25/24: Pt not ready to perform on progress note. 02/22-15 sec L, 30 sec R LTG Duration achieved 02/22 walking Short Term Goal (STG) Pt will be able to go for .5 mile walks w/pain no greater than 2/10. 01/25/24: Pt is walking with her SPC in right hand .5 mile with no more than 2/10 pain. 6MWT today with cane in right hand: 891 feet with mildly antalgic gait, slow jania and partial step-to pattern STG Duration achieved [facility] Goal (LTG) Pt will report being able to return to hiking on uneven terrain for >2 miles w/o pain >2/10 with use of no AD or with use of hiking sticks. 02/22-hiking sticks on even terrain 1.8 miles 04/06-has done gravel walks and steps and along beach prior to flare up and it felt okay until walked too much. LTG Duration 05/17 LEFS Impairment 18/80 Short Term Goal (STG) Pt will improve LEFS score to at least 35/80 to show improved functional ability. 01/25/24: LEF score is 32/80. STG Duration achieved 45/80 Performance Solutions Specialist Goal (LTG) Pt will improve LEFS score to at least 55/80 to show improved functional ability. 01/25/24: LEF score is 32/80. 02/22-45/80 04/06-n/t LTG Duration 05/18 Assessment Summary Assessment Good form for squat post calf stretches, did begin to toe out with sit to stand with band/ using dowel at spine, likely due to performed prior to calf stretches. Patient reports feeling like muscles worked end of session. Physical Therapy Plan Next Visit Focus/Plan Next Note Type Treatment Note Next Visit Plan manual and PNF for improved function, cont strength for gait and activity, avoid reps w/hip flex
--- NOTE | 2024-04-27 11:26 | PT.OTN ---
Current Diagnoses Pain in left hip (04/27/24) Physical Therapy Treatment Note PT-OP-A Visit Information Start: 12/02/23 17:12 Freq: Status: Active Protocol: Document 04/27/24 09:51 [facility] (Rec: 04/27/24 11:26 [facility] [id number]) Out-Patient Physical Therapy Visit Information Visit Information Visit Type Progress Note Visit Start Time 09:50 Visit Stop Time 10:30 Visit Number 31 Number of AGRICULTURAL EQUIPMENT SALES ENGINEER Visits 0 PT-OP-B Current Condition Start: 12/02/23 17:12 Freq: Status: Active Protocol: Document 12/30/23 13:01 [facility] (Rec: 12/30/23 13:51 [facility] [id number]) Current Condition History of Current Condition Onset Date 12/26 Current Complaints L ant DAVID History of Current Condition Pt had L anterior DAVID 12/26 without complications d/t OA. Pt has had B TKA and has had good recovery. Avoids getting down on knees and avoids running, and jumping. Pt reports got DAVID d/t gradual wearing down. Pt reports doing well with FWW Pt has SLH w/1 IVORY. Pt has tub shower w/hand rails. Has not showered yet. The day of sx, she did have some dizziness and hasn't had issues past couple days. No issues w/toilet. Pt has been getting assistance w/ compression socks and shoes and pants. Has mostly been wearing skirts. Sister staying w/pt now. Has been doing glute and quad sets, APs, and heel slides. Treatment Goals Patient/Caregiver Goals Wants to be able to walk and hike and be able to bike and swim and garden. Be able to squat PT-OP-C Subjective Start: 12/02/23 17:12 Freq: Status: Active Protocol: Document 04/27/24 09:51 [facility] (Rec: 04/27/24 11:26 [facility] [id number]) OP-PT Subjective Patient Comments Patient Comments current HEP:calf stretches, sidesteps, clamshell at wall, bridges/sL bridge,piriformis stretch, add stretch, squat w/ band& dowel, crunches, seated hip abd hold PT-OP-G Mobility & Gait Start: 12/02/23 17:12 Freq: Status: Active Protocol: Document 12/30/23 13:01 [facility] (Rec: 12/30/23 13:51 [facility] [id number]) OP Mobility Evaluation Bed Mobility Supine to and from Sit uses RLE to help up LLE Transfers Sit to Stand puts LLE out in front and uses UEs to FWW OP Gait Assessment Assistive Devices Assistive Device Front Wheeled Walker Gait Deviations General Gait Pattern Antalgic,Decreased Stride Length PT-OP-M Strength Start: 12/02/23 17:12 Freq: Status: Active Protocol: Document 04/27/24 09:51 [facility] (Rec: 04/27/24 11:26 [facility] [id number]) Hip Strength Hip Manual Muscle Testing Right Flexion (L2) 4+ Good+ Extension (S1) 4 Good Abduction 5 Normal External Rotation 5 Normal Internal Rotation 5 Normal Left Flexion (L2) 4- Good- Extension (S1) 4 Good Abduction 4 Good External Rotation 4 Good Internal Rotation 4+ Good+ Comments pain in groin w/ hip flex , pain lat knee IR/ER Knee Strength Knee Manual Muscle Testing Right Flexion (S2) 5 Normal Extension (L3) 5 Normal Left Flexion (S2) 5 Normal Extension (L3) 5 Normal Comments pain lat knee PT-OP-Q Treatments Start: 12/02/23 17:12 Freq: Status: Active Protocol: Document 04/27/24 09:51 [facility] (Rec: 04/27/24 11:26 [facility] [id number]) Therapeutic Exercises Supine Exercises knee to chest Supine Exercise Name LLE isometric w/rested on R knee Reps/Minutes 30sec x2 Sitting Exercises seated hip abduction with band Sitting Exercise Name quick review of movement w/o band Standing Exercises squat with band Side bilateral Resistance level 4 band Equipment Used dowel on back Reps/Minutes 15 Comments cues inc range, chair behind for saftey stretch Standing Exercise Name gastroc/hip flexor stretch; soleus stretch Side left Reps/Minutes 30 sec ea may Standing Exercise Name AROM Side left Reps/Minutes 10 Manual Therapy Treatment Consent Patient gave verbal consent for manual Yes treatment Soft Tissue Mobilization hip flexor Body Location L proximal psoas and distal & pectineus Mobilization Type Cross-Friction,Rolling, Sustained Pressure Intensity/Depth Moderate Comments 90/90 hips Joint Mobilizations lumbar Joint AP L4 and 5 c/r innominate Joint L flex c/r Neuro Re-Education Treatment Other Activities PNF Reps/Duration 8 min Comments LLE traction for irradiation to L ant elevation of pelvis progressing to sustained holds progressing to COI w/ dissociation btwn pelvis and hip PT-OP-R Modalities Start: 12/02/23 17:12 Freq: Status: Active Protocol: Document 04/13/24 08:10 [facility] (Rec: 04/13/24 10:38 AB [id number]) Infrared Treatment Treatment left hip Body Position Hooklying Continuous/Pulsed Continuous Program or Protocal Chronic cont, mus tendon pain/ stiffness Comments at insert illio psoas X 3 areas PT-OP-T Assessment and Plan Start: 12/02/23 17:12 Freq: Status: Active Protocol: Document 04/27/24 09:51 [facility] (Rec: 04/27/24 11:26 [facility] [id number]) Physical Therapy Assessment Goals strength Short Term Goal (STG) Pt will be able to reciprocate up/down stairs w/rail 01/25/24: Did not attempt on progress note given pain and guarding behavior. 02/22-able w/touching rail for balance STG Duration achieved 02/22 State Epidemiologist Goal (LTG) Pt will score at least 4+/5 on all BLE MMT to show improved strength and stability to allow greater ease w/activity. 01/25/24: Pt supine: B DF and great toe extension 5/5; right knee flexion and extension: 5 /5; right hip flexion and extension and abduction 4+/5; left knee: with attempted knee flexion testing, pt reports pain at hip and gives way at 3 +/5 and knee extension also causes hip pain with strength 4/5. MMT left hip deferred d/t pain. 02/22-improving 04/06-limited progress recently w/set back 04/27-improving LTG Duration 06/20 balance State Epidemiologist Goal (LTG) Pt will be able to do at least 10 sec SLS B. 01/25/24: Pt not ready to perform on progress note. 02/22-15 sec L, 30 sec R LTG Duration achieved 02/22 walking Short Term Goal (STG) Pt will be able to go for .5 mile walks w/pain no greater than 2/10. 01/25/24: Pt is walking with her SPC in right hand .5 mile with no more than 2/10 pain. 6MWT today with cane in right hand: 891 feet with mildly antalgic gait, slow jania and partial step-to pattern STG Duration achieved [facility] Goal (LTG) Pt will report being able to return to hiking on uneven terrain for >2 miles w/o pain >2/10 with use of no AD or with use of hiking sticks. 02/22-hiking sticks on even terrain 1.8 miles 04/06-has done gravel walks and steps and along beach prior to flare up and it felt okay until walked too much. 04/27-did 2 mile even terrain walk w/o issue the other day LTG Duration 06/20 LEFS Impairment 18/80 Short Term Goal (STG) Pt will improve LEFS score to at least 35/80 to show improved functional ability. 01/25/24: LEF score is 32/80. STG Duration achieved 45/80 [facility] Goal (LTG) Pt will improve LEFS score to at least 55/80 to show improved functional ability. 01/25/24: LEF score is 32/80. 02/22-45/80 04/06-n/t 04/27-n/t LTG Duration 06/20 Assessment Summary Assessment Pt is making good progress w/ moblity but is limited w/L hip flexor paina nd occ glute pain. Pain is likely related to L hip flexor strain since surgery and irritation w/ surgery along w/dec core stability that affected L hip stability. she would benefit from cont PT to improve function and dec L ant hip pain.S he has had much improvement in past 2 weeks. Physical Therapy Plan Frequency and Duration Frequency of Treatment 1x/wk to every other Duration of treatment (weeks) 8 Plan of Care Start Date 04/27/24 Plan of Care End Date 06/22/24 Therapeutic Interventions Therapeutic Interventions Balance Training,Gait Training ,Home Exercise Program,Joint Mobilizations,Manual Therapy, Neuromuscular Re-education, Patient/Caregiver Education, Self-Care/Home Management,Soft Tissue Mobilization,Taping, Therapeutic Activities, Therapeutic Exercises Modalities Cold Pack/Ice Massage,Electric Stimulation,Hot Packs, Ultrasound Next Visit Focus/Plan Next Note Type Treatment Note Next Visit Plan PNF for ant elevation and cont to advance hip flex
--- NOTE | 2024-04-27 11:26 | PT.OPPOC ---
Physical, Occupational & Speech Therapy At [facility] Current Diagnoses Pain in left hip (04/27/24) Visit Care Team Role Provider Type Jose Patel DO Family Provider Physician Primary Care Provider Specialty: Family Practice Address: [address] [place] [address], [id number] Email: [email or web address] Aristides Raya MD Attending Provider Non-Staff Referring Provider Specialty: Orthopedic Surgery Address: [address] [place] [address] , [place], [address] Email: Plan Of Care PT-OP-B Current Condition Start: 12/02/23 17:12 Freq: Status: Active Protocol: Document 12/30/23 13:01 [facility] (Rec: 12/30/23 13:51 [facility] [id number]) Current Condition History of Current Condition Onset Date 12/26 Current Complaints L ant DAVID History of Current Condition Pt had L anterior DAVID 12/26 without complications d/t OA. Pt has had B TKA and has had good recovery. Avoids getting down on knees and avoids running, and jumping. Pt reports got DAVID d/t gradual wearing down. Pt reports doing well with FWW Pt has SLH w/1 IVORY. Pt has tub shower w/hand rails. Has not showered yet. The day of sx, she did have some dizziness and hasn't had issues past couple days. No issues w/toilet. Pt has been getting assistance w/ compression socks and shoes and pants. Has mostly been wearing skirts. Sister staying w/pt now. Has been doing glute and quad sets, APs, and heel slides. Treatment Goals Patient/Caregiver Goals Wants to be able to walk and hike and be able to bike and swim and garden. Be able to squat PT-OP-T Assessment and Plan Start: 12/02/23 17:12 Freq: Status: Active Protocol: Document 04/27/24 09:51 [facility] (Rec: 04/27/24 11:26 [facility] [id number]) Physical Therapy Assessment Goals strength Short Term Goal (STG) Pt will be able to reciprocate up/down stairs w/rail 01/25/24: Did not attempt on progress note given pain and guarding behavior. 02/22-able w/touching rail for balance STG Duration achieved 02/22 Railway Yard Assistant Goal (LTG) Pt will score at least 4+/5 on all BLE MMT to show improved strength and stability to allow greater ease w/activity. 01/25/24: Pt supine: B DF and great toe extension 5/5; right knee flexion and extension: 5 /5; right hip flexion and extension and abduction 4+/5; left knee: with attempted knee flexion testing, pt reports pain at hip and gives way at 3 +/5 and knee extension also causes hip pain with strength 4/5. MMT left hip deferred d/t pain. 02/22-improving 04/06-limited progress recently w/set back 04/27-improving LTG Duration 06/20 balance Railway Yard Assistant Goal (LTG) Pt will be able to do at least 10 sec SLS B. 01/25/24: Pt not ready to perform on progress note. 02/22-15 sec L, 30 sec R LTG Duration achieved 02/22 walking Short Term Goal (STG) Pt will be able to go for .5 mile walks w/pain no greater than 2/10. 01/25/24: Pt is walking with her SPC in right hand .5 mile with no more than 2/10 pain. 6MWT today with cane in right hand: 891 feet with mildly antalgic gait, slow jania and partial step-to pattern STG Duration achieved Custodial Goal (LTG) Pt will report being able to return to hiking on uneven terrain for >2 miles w/o pain >2/10 with use of no AD or with use of hiking sticks. 02/22-hiking sticks on even terrain 1.8 miles 04/06-has done gravel walks and steps and along beach prior to flare up and it felt okay until walked too much. 04/27-did 2 mile even terrain walk w/o issue the other day LTG Duration 06/20 LEFS Impairment 18/80 Short Term Goal (STG) Pt will improve LEFS score to at least 35/80 to show improved functional ability. 01/25/24: LEF score is 32/80. STG Duration achieved 45/80 Custodial Goal (LTG) Pt will improve LEFS score to at least 55/80 to show improved functional ability. 01/25/24: LEF score is 32/80. 02/22-45/80 04/06-n/t 04/27-n/t LTG Duration 06/20 Assessment Summary Assessment Pt is making good progress w/ moblity but is limited w/L hip flexor paina nd occ glute pain. Pain is likely related to L hip flexor strain since surgery and irritation w/ surgery along w/dec core stability that affected L hip stability. she would benefit from cont PT to improve function and dec L ant hip pain.S he has had much improvement in past 2 weeks. Physical Therapy Plan Frequency and Duration Frequency of Treatment 1x/wk to every other Duration of treatment (weeks) 8 Plan of Care Start Date 04/27/24 Plan of Care End Date 06/22/24 Therapeutic Interventions Therapeutic Interventions Balance Training,Gait Training ,Home Exercise Program,Joint Mobilizations,Manual Therapy, Neuromuscular Re-education, Patient/Caregiver Education, Self-Care/Home Management,Soft Tissue Mobilization,Taping, Therapeutic Activities, Therapeutic Exercises Modalities Cold Pack/Ice Massage,Electric Stimulation,Hot Packs, Ultrasound Next Visit Focus/Plan Next Note Type Treatment Note Next Visit Plan PNF for ant elevation and cont to advance hip flex Plan of Care Dates Plan of Care Start Date 04/27/24 Plan of Care End Date 06/22/24 Electronically Signed by: Betty Hart, PT 04/27/24 0656 If you are in agreement with this Plan of Care, please return a signed and dated copy. I have reviewed this Plan of Care and certify that the skilled therapy services above are required to meet the patient?s needs. Physician Signature Date Printed Name and Credentials Clinical Instructor Signature Printed Name and Credentials
--- NOTE | 2024-05-22 10:49 | PT.OTN ---
Current Diagnoses Pain in left hip (05/22/24) Physical Therapy Treatment Note PT-OP-A Visit Information Start: 12/02/23 17:12 Freq: Status: Active Protocol: Document 05/22/24 09:54 [facility] (Rec: 05/22/24 10:49 [facility] [id number]) Out-Patient Physical Therapy Visit Information Visit Information Visit Type Discharge Summary Visit Start Time 09:53 Visit Stop Time 10:33 Visit Number 32 Number of NET LEAD ARCHITECT Visits 0 PT-OP-B Current Condition Start: 12/02/23 17:12 Freq: Status: Active Protocol: Document 12/30/23 13:01 [facility] (Rec: 12/30/23 13:51 [facility] [id number]) Current Condition History of Current Condition Onset Date 12/26 Current Complaints L ant DAVID History of Current Condition Pt had L anterior DAVID 12/26 without complications d/t OA. Pt has had B TKA and has had good recovery. Avoids getting down on knees and avoids running, and jumping. Pt reports got DAVID d/t gradual wearing down. Pt reports doing well with FWW Pt has SLH w/1 IVORY. Pt has tub shower w/hand rails. Has not showered yet. The day of sx, she did have some dizziness and hasn't had issues past couple days. No issues w/toilet. Pt has been getting assistance w/ compression socks and shoes and pants. Has mostly been wearing skirts. Sister staying w/pt now. Has been doing glute and quad sets, APs, and heel slides. Treatment Goals Patient/Caregiver Goals Wants to be able to walk and hike and be able to bike and swim and garden. Be able to squat PT-OP-C Subjective Start: 12/02/23 17:12 Freq: Status: Active Protocol: Document 05/22/24 09:54 [facility] (Rec: 05/22/24 10:49 [facility] [id number]) OP-PT Subjective Patient Comments Patient Comments Pt reports did a lot of gardening yesterday and has a mild tightness in groin. She is inc her walking. Notes she still has dec strength with ability to step over. PT-OP-G Mobility & Gait Start: 12/02/23 17:12 Freq: Status: Active Protocol: Document 12/30/23 13:01 [facility] (Rec: 12/30/23 13:51 [facility] [id number]) OP Mobility Evaluation Bed Mobility Supine to and from Sit uses RLE to help up LLE Transfers Sit to Stand puts LLE out in front and uses UEs to FWW OP Gait Assessment Assistive Devices Assistive Device Front Wheeled Walker Gait Deviations General Gait Pattern Antalgic,Decreased Stride Length PT-OP-M Strength Start: 12/02/23 17:12 Freq: Status: Active Protocol: Document 05/22/24 09:54 [facility] (Rec: 05/22/24 10:49 [facility] [id number]) Hip Strength Hip Manual Muscle Testing Right Flexion (L2) 4+ Good+ Extension (S1) 4+ Good+ Abduction 5 Normal External Rotation 5 Normal Internal Rotation 5 Normal Left Flexion (L2) 4- Good- Extension (S1) 4 Good Abduction 4+ Good+ External Rotation 4+ Good+ Internal Rotation 4+ Good+ Comments feel in groin w/ hip flex Knee Strength Knee Manual Muscle Testing Right Flexion (S2) 5 Normal Extension (L3) 5 Normal Left Flexion (S2) 5 Normal Extension (L3) 5 Normal Ankle/Foot Strength Ankle and Foot Manual Muscle Testing Right Dorsiflexion (L4) 5 Normal Plantarflexion (S1) 5 Normal Left Dorsiflexion (L4) 5 Normal Plantarflexion (S1) 5 Normal Comments seated testing PT-OP-Q Treatments Start: 12/02/23 17:12 Freq: Status: Active Protocol: Document 05/22/24 09:54 [facility] (Rec: 05/22/24 10:49 [facility] [id number]) Therapeutic Exercises Supine Exercises knee to chest Supine Exercise Name LLE isometric w/rested on R knee Reps/Minutes 30sec x2 Comments 2nd set dec support on opp leg heel slides Supine Exercise Name in air higher Side bilateral Reps/Minutes 10 Comments cues core Sitting Exercises SLR Sitting Exercise Name 1. lean back 2. sat up Side bilateral Reps/Minutes 5 ea Comments demo progression on R w/up and over and back Standing Exercises march Standing Exercise Name L1 band Side bilateral Reps/Minutes 10 Other Exercises isometrics Other Exercise Name B LE MMT Manual Therapy Treatment Consent Patient gave verbal consent for manual Yes treatment Soft Tissue Mobilization hip flexor Body Location L proximal psoas Comments AAROm flex hip Joint Mobilizations innominate Comments L add c/r left hip Comments inf med glide c/r s/l PT-OP-R Modalities Start: 12/02/23 17:12 Freq: Status: Active Protocol: Document 04/13/24 08:10 [facility] (Rec: 04/13/24 10:38 [facility] [id number]) Infrared Treatment Treatment left hip Body Position Hooklying Continuous/Pulsed Continuous Program or Protocal Chronic cont, mus tendon pain/ stiffness Comments at insert illio psoas X 3 areas PT-OP-T Assessment and Plan Start: 12/02/23 17:12 Freq: Status: Active Protocol: Document 05/22/24 09:54 [facility] (Rec: 05/22/24 10:49 [facility] [id number]) Physical Therapy Assessment Goals strength Short Term Goal (STG) Pt will be able to reciprocate up/down stairs w/rail 01/25/24: Did not attempt on progress note given pain and guarding behavior. 02/22-able w/touching rail for balance STG Duration achieved 02/22 Usp Goal (LTG) Pt will score at least 4+/5 on all BLE MMT to show improved strength and stability to allow greater ease w/activity. 01/25/24: Pt supine: B DF and great toe extension 5/5; right knee flexion and extension: 5 /5; right hip flexion and extension and abduction 4+/5; left knee: with attempted knee flexion testing, pt reports pain at hip and gives way at 3 +/5 and knee extension also causes hip pain with strength 4/5. MMT left hip deferred d/t pain. 02/22-improving 04/06-limited progress recently w/set back 04/27-improving LTG Duration mostly achieved balance Usp Goal (LTG) Pt will be able to do at least 10 sec SLS B. 01/25/24: Pt not ready to perform on progress note. 02/22-15 sec L, 30 sec R LTG Duration achieved 02/22 walking Short Term Goal (STG) Pt will be able to go for .5 mile walks w/pain no greater than 2/10. 01/25/24: Pt is walking with her SPC in right hand .5 mile with no more than 2/10 pain. 6MWT today with cane in right hand: 891 feet with mildly antalgic gait, slow jania and partial step-to pattern STG Duration achieved Cad Librarian Goal (LTG) Pt will report being able to return to hiking on uneven terrain for >2 miles w/o pain >2/10 with use of no AD or with use of hiking sticks. 02/22-hiking sticks on even terrain 1.8 miles 04/06-has done gravel walks and steps and along beach prior to flare up and it felt okay until walked too much. 04/27-did 2 mile even terrain walk w/o issue the other day LTG Duration achieved to about 2 miles then feel some glute burning LEFS Impairment Short Term Goal (STG) Pt will improve LEFS score to at least 35/80 to show improved functional ability. 01/25/24: LEF score is 32/80. STG Duration achieved 45/80 Usp Goal (LTG) Pt will improve LEFS score to at least 55/80 to show improved functional ability. 01/25/24: LEF score is 32/80. 02/22-45/80 04/06-n/t 04/27-n/t LTG Duration improved function noted pt did not fill out Assessment Summary Assessment Pt indep w/HEP and mostly met goals at this time. She is progressing well with strength , balance and functional ability w/limit mostly w/hip flex and given some progressions to work on gradually. Instructed build up from 5 reps w/each exercise and no more than every other day. Pt to DC to HEP at this time. Physical Therapy Plan Discharge Physical Therapy Discharge Reasons Goals Met
== END 2024-05-25 14:44 | disposition home or self-care (01) ==
LOC: PHYS 09:45
PROVIDERS: Family Provider Family Medicine; PCP Family Medicine; Referring Provider Student in an Organized Health Care Education/Training Program; Visit Provider Student in an Organized Health Care Education/Training Program
DX: M25.552 Pain in left hip (principal)
CPT/HCPCS: 97010; 97110; 97112; 97116; 97140; 97530; 97535

== ENCOUNTER → 2024-10-18 08:49 | Outpatient (CLI) | payer MEDICARE, SELFPAY ==
--- NOTE | 2024-10-18 08:51 | DI.MG.S_ITS ---
MM diagnostic mammo BI: 10/18/2024. BI-RADS: 2 CLINICAL: 69-year old female for bilateral diagnostic mammogram that is a follow-up to diagnostic, bilateral, digital, tomosynthesis, short-term follo on 10/15/2023. Tyrer-Cuzick lifetime risk of 6.0%. No personal or first-degree family history of breast cancer. Current reported family history of breast cancer: maternal aunt's daughter. PRIOR EXAMS 10/15/2023, 03/30/2023, 09/15/2022, 08/19/2022. MAMMOGRAPHY TECHNIQUE: 2D and 3D (tomosynthesis) digital mammographic views obtained, with additional images as needed for full coverage. Current study was also evaluated with a Computer Aided Detection (CAD) system. DENSITY C. The breasts are heterogeneously dense, which may obscure small masses. MAMMOGRAPHY FINDINGS Right: No suspicious mass, asymmetry, microcalcification, or other abnormality seen. Left: Upper Outer at 2:00, Middle depth: There is a stable focal asymmetry present. This finding has demonstrated two years of stability and is consistent with a benign etiology. No new suspicious mass, asymmetry, microcalcification, or other abnormality seen. IMPRESSION: Right * No evidence of malignancy. Left * No evidence of malignancy with benign findings. RECOMMENDATIONS Bilateral * Annual screening mammography. COMMENTS: Findings and recommendations were conveyed to the patient during today's evaluation. OVERALL ASSESSMENT CATEGORY BI-RADS-2: Benign. The [employer] recommends annual screening mammography beginning at age 40 for women with average risk of breast cancer. ELECTRONICALLY SIGNED: Gilma Johnson M.D. on 10/18/2024 at 09:37:14 AM PT Interpreting Station ID: [id number]
== END ==
LOC: MAMMO 08:50
PROVIDERS: Family Provider Family Medicine; PCP Family Medicine; Referring Provider Family Medicine; Visit Provider Family Medicine
DX: R92.8 Other abnormal and inconclusive findings on diagnostic imaging of breast (principal); R92.333 Mammographic heterogeneous density, bilateral breasts; N64.89 Other specified disorders of breast
CPT/HCPCS: 77066; G0279